=== PATIENT | female | born 1940 | race African-American/Black ===

== ENCOUNTER 2017-04-08 19:19 | Inpatient (IN) | payer BC ==
[~2017-04-08] VITALS: Ht 172.7 cm; Wt 81.4 kg
[~2017-04-08 19:19] MED LIST: ACET325T21 PO; ACET650S19 PO; BISA10SU2 RC; CALC-98 PO; CYAN10005 PO; ENOX40DI SQ; GABA-585 PO; GLUC-126 PO; HYDR-2758 PO; HYDR500C16 PO; MAGN2400 PO; MAGN400C PO; NA P133E2 RC; OMEG-33 PO; PANT40TA3 PO; POTASSIUM PO; WARF10TA45 PO; WARF2TAB PO; WARF7.5T48 PO; WARF7.5T6 PO; [UNRECOGNIZED DRUG - OTHER] PO; [UNRECOGNIZED DRUG - REMARK] PO
[2017-04-08 19:35] LABS: BILIRUBIN,URINE NEGATIVE (NEG); GLUCOSE,URINE NEGATIVE (NEG); NITRITE,URINE NEGATIVE (NEG); PH,URINE 5.5; PROTEIN,URINE 100 mg/dL (NEG-TRACE); UROBILINOGEN,URINE 0.2 mg/dL (0.2 mg/dL)
[2017-04-08 19:43] LABS: BACTERIA,URINE FEW /HPF (0-FEW); RBC,URINE 0 /HPF (0-2); SQUAMOUS EPITHELIAL CELL,UR MOD /LPF
[2017-04-08] MEDS ORDERED: ONDANSETRON PF 4 MG/2 ML VIAL. IV ONE (19:45)
[2017-04-08] MEDS ORDERED: LIDO:MAALOX:DONNATAL 1:1:1 15 ML SINGLE DOSE SWSW ONE (20:15)
[2017-04-08] MEDS ORDERED: NITROGLYCERIN SUBLINGUAL 0.4 MG BOTTLE OF 25. SL PRN (20:15)
[2017-04-08 20:24] LABS: BASO # 0.1 x10^3/uL (0.0-0.2); BASO % 1 % (0-3); EOS % 0 % (0-3); HEMATOCRIT 28.3 % (36.0-47.0); HEMOGLOBIN 9.4 g/dL (12.0-15.5); LYMPH # 0.2 x10^3/uL (1.0-4.8); LYMPH % 3 % (24-48); MEAN CORPUSCULAR HEMOGLOBIN 30 pg (25-35); MEAN CORPUSCULAR HGB CONC 33 g/dL (31-37); MEAN CORPUSCULAR VOLUME 90 fL (79-100); MONO % 4 % (0-9); NEUT % 93 % (31-73); PLATELET COUNT 594 x10^3/uL (140-400); RED BLOOD COUNT 3.14 x10^6/uL (3.50-5.40); RED CELL DISTRIBUTION WIDTH 18.4 % (11.5-14.5); WHITE BLOOD COUNT 9.4 x10^3/uL (4.0-11.0)
[2017-04-08 20:33] LABS: PROTHROMBIN TIME PATIENT 21.4 SEC (11.7-14.0)
[2017-04-08 20:36] LABS: CALCIUM 8.7 mg/dL (8.5-10.1); GFR 65.2; POTASSIUM 3.9 mmol/L (3.5-5.1)
[2017-04-08 20:44] LABS: ALBUMIN 3.7 g/dL (3.4-5.0); ALBUMIN/GLOBULIN RATIO 0.9 (1.0-1.7); TOTAL BILIRUBIN 0.4 mg/dL (0.2-1.0); TOTAL PROTEIN 7.6 g/dL (6.4-8.2)
--- NOTE | 2017-04-08 20:48 | ED.ADGEN ---
Past Medical History Past Medical History: Cancer, Diverticulitis, GERD Additional Past Medical Histor: thrombocytosis, BREAST CANCER Past Surgical History: Hysterectomy, Other Additional Past Surgical Histo: colon resection, THYROIDECTOMY, L MASTECTOMY, LAMINECTOMY Alcohol Use: None Drug Use: None Adult General Chief Complaint Chief Complaint: GI PROBLEM HPI HPI Patient is a 77 year old woman, history of chronic anemia, GERD, chronic abdominal pain, diverticulitis, presents the emergency department with a complaint of chest pressure, so seated with nausea, vomiting, and sweating that began this afternoon. Patient states that she also is experiencing abdominal pain at this time, and thinks that this may be "like my GERD", states that the pain is in a did not respond her typical GERD treatment. She denies any focal weakness, numbness or tingling, any syncope, any palpitations, any recent travel or surgery, any history of leg swelling or rashes. She does of a history of "blood clots", for which she takes Coumadin, states her last INR check was last week and it was within normal limits. Patient describes the chest pressure located in the middle of her chest, is a heaviness, and "not a pain", denies any radiation, denies any history of cardiac evaluation with either a stress test or catheterization. Her primary care provider is Dr. Jimenes. Review of Systems Review of Systems Constitutional: Denies fever or chills. [] Eyes: Denies change in visual acuity. [] HENT: Denies nasal congestion or sore throat. [] Respiratory: Denies cough or shortness of breath. [] Cardiovascular: Chest pressure, no edema. GI: Cramping in the upper abdomen, associated with nausea, vomiting 3 episodes , food and fluid, no diarrhea. : Denies dysuria. [] Musculoskeletal: Denies back pain or joint pain. [] Integument: Denies rash. [] Neurologic: Denies headache, focal weakness or sensory changes. [] Endocrine: Denies polyuria or polydipsia. [] Lymphatic: Denies swollen glands. [] Psychiatric: Denies depression or anxiety. [] Current Medications Current Medications Current Medications Medications (Trade) Dose Ordered Sig/Abbie Start Time Stop Time Status Last Admin Dose Admin Acetaminophen (Tylenol) 650 mg PRN Q4HRS PRN 04/08/17 22:45 04/09/17 22:44 UNV Fentanyl Citrate (Fentanyl 2ml Vial) 75 mcg PRN Q15MIN PRN 04/08/17 23:00 04/09/17 22:59 UNV Info (Do NOT chart on this entry -- for MONITORING) 1 each PRN DAILY PRN 04/08/17 21:30 04/10/17 21:29 Iohexol (Omnipaque 350 Mg/ml) 90 ml 1X ONCE 04/08/17 21:30 04/08/17 21:31 DC 04/08/17 21:36 90 ML Multi-Ingredient Mouthwash/Gargle (Gi Cocktail Single Dose) 15 ml 1X ONCE 04/08/17 20:15 04/08/17 20:16 DC 04/08/17 20:20 15 ML Nitroglycerin (Nitrostat) 0.4 mg PRN Q5MIN PRN 04/08/17 20:15 Ondansetron HCl (Zofran) 4 mg PRN Q8HRS PRN 04/08/17 22:45 04/09/17 22:44 UNV Piperacillin Sod/ Tazobactam Sod (Zosyn Per Pharmacy) 1 each PRN DAILY PRN 04/08/17 22:30 UNV Piperacillin Sod/ Tazobactam Sod 4.5 gm/Sodium Chloride 100 ml @ 200 mls/hr 1X ONCE 04/08/17 22:45 04/08/17 23:14 04/08/17 22:52 200 MLS/HR Sodium Chloride 1,000 ml @ 125 mls/hr Q8H 04/08/17 22:39 04/09/17 22:38 UNV 04/08/17 22:56 125 MLS/HR Allergies Allergies Allergies Coded Allergies Type Severity Reaction Last Updated Verified codeine Adverse Reaction Intermediate Palpitations 02/21/16 Yes Physical Exam Physical Exam Constitutional: Well developed, well nourished, no acute distress, non-toxic appearance. [] HENT: Normocephalic, atraumatic, bilateral external ears normal, oropharynx moist, no oral exudates, nose normal. [] Eyes: PERRLA, EOMI, conjunctiva normal, no discharge. [] Neck: Normal range of motion, no tenderness, supple, no stridor. [] Cardiovascular:Heart rate regular rhythm, no murmur, S1, S2, no rubs or gallops. [] Lungs & Thorax: Denies breath sounds at bases bilaterally, no wheezing, rhonchi , rales. No chest wall crepitus or tenderness. [] Abdomen: Bowel sounds normal, soft, mild tenderness palpation in the epigastric region and mid abdominal region, no rebound, rigidity, or guarding, no masses, no pulsatile masses. [] Skin: Warm, dry, no erythema, no rash. [] Back: No tenderness, no CVA tenderness. [] Extremities: No tenderness, no cyanosis, no clubbing, ROM intact, no edema. Negative Homans sign. [] Neurologic: Alert and oriented X 3, normal motor function, normal sensory function, no focal deficits noted. [] Psychologic: Affect normal, judgement normal, mood normal. [] Current Patient Data Vital Signs Vital Signs Date Time Temp Pulse Resp B/P (MAP) Pulse Ox O2 Delivery O2 Flow Rate FiO2 04/08/17 22:50 22 100 Room Air 04/08/17 19:25 99.2 82 156/70 (98) 99.2 Lab Values Laboratory Tests Test 04/08/17 19:25 04/08/17 20:12 Urine Collection Type Unknown Urine Color Yellow Urine Clarity Clear Urine pH 5.5 Urine Specific Delano >=1.030 Urine Protein 100 mg/dL (NEG-TRACE) Urine Glucose (UA) Negative mg/dL (NEG) Urine Ketones (Stick) Negative mg/dL (NEG) Urine Blood Negative (NEG) Urine Nitrite Negative (NEG) Urine Bilirubin Negative (NEG) Urine Urobilinogen Dipstick 0.2 mg/dL (0.2 mg/dL) Urine Leukocyte Esterase Negative (NEG) Urine RBC 0 /HPF (0-2) Urine WBC 1-4 /HPF (0-4) Urine Squamous Epithelial Cells Mod /LPF Urine Bacteria Few /HPF (0-FEW) Urine Hyaline Casts Few /HPF Urine Mucus Marked /LPF White Blood Count 9.4 x10^3/uL (4.0-11.0) Red Blood Count 3.14 x10^6/uL (3.50-5.40) L Hemoglobin 9.4 g/dL (12.0-15.5) L Hematocrit 28.3 % (36.0-47.0) L Mean Corpuscular Volume 90 fL (79-100) Mean Corpuscular Hemoglobin 30 pg (25-35) Mean Corpuscular Hemoglobin Concent 33 g/dL (31-37) Red Cell Distribution Width 18.4 % (11.5-14.5) H Platelet Count 594 x10^3/uL (140-400) H Neutrophils (%) (Auto) 93 % (31-73) H Lymphocytes (%) (Auto) 3 % (24-48) L Monocytes (%) (Auto) 4 % (0-9) Eosinophils (%) (Auto) 0 % (0-3) Basophils (%) (Auto) 1 % (0-3) Neutrophils # (Auto) 8.8 x10^3uL (1.8-7.7) H Lymphocytes # (Auto) 0.2 x10^3/uL (1.0-4.8) L Monocytes # (Auto) 0.3 x10^3/uL (0.0-1.1) Eosinophils # (Auto) 0.0 x10^3/uL (0.0-0.7) Basophils # (Auto) 0.1 x10^3/uL (0.0-0.2) Segmented Neutrophils % 89 % (35-66) H Band Neutrophils % 4 % (0-9) Lymphocytes % 3 % (24-48) L Atypical Lymphocytes % (Manual) 4 % (0-0) H Platelet Estimate Increased (ADEQUATE) Giant Platelets Mod Polychromasia Slight Anisocytosis Slight Microcytosis Slight Tear Drop Cells Occ Prothrombin Time 21.4 SEC (11.7-14.0) H Prothrombin Time INR 2.0 (0.8-1.1) H PTT 33 SEC (24-38) Sodium Level 138 mmol/L (136-145) Potassium Level 3.9 mmol/L (3.5-5.1) Chloride Level 100 mmol/L (98-107) Carbon Dioxide Level 26 mmol/L (21-32) Anion Gap 12 (6-14) Blood Urea Nitrogen 19 mg/dL (7-20) Creatinine 1.0 mg/dL (0.6-1.0) Estimated GFR (Cockcroft-Gault) 65.2 BUN/Creatinine Ratio 19 (6-20) Glucose Level 186 mg/dL (70-99) H Lactic Acid Level 4.2 mmol/L (0.4-2.0) *H Calcium Level 8.7 mg/dL (8.5-10.1) Total Bilirubin 0.4 mg/dL (0.2-1.0) Aspartate Amino Transferase (AST) 14 U/L (15-37) L Alanine Aminotransferase (ALT) 21 U/L (14-59) Alkaline Phosphatase 56 U/L (46-116) Troponin I Quantitative < 0.017 ng/mL (0.000-0.055) Total Protein 7.6 g/dL (6.4-8.2) Albumin 3.7 g/dL (3.4-5.0) Albumin/Globulin Ratio 0.9 (1.0-1.7) L Lipase 53 U/L (73-393) L Laboratory Tests 04/08/17 20:12 Laboratory Tests 04/08/17 20:12 EKG EKG EC: Sinus rhythm, heart rate 81 bpm, upright axis, QTC of 516, prolonged , QRS of 92, WI 162, with moderate baseline artifact noted. Patient with T-wave inversions noted in V4, with changes in contour noted in the anterior lateral leads when compared to ECG from 02/27/2016. As interpreted by me. No ST elevations , no depressions. Abnormal ECG, does not meet STEMI criteria. EC: Sinus rhythm, heart rate 85 bpm, improved at baseline, patient noted to have T-wave inversions in V3 through V5, no ST elevations or depressions, QTC of 483, WI 170, QRS of 90, abnormal ECG, does not meet STEMI criteria. As interpreted by me. Radiology/Procedures Radiology/Procedures Acute abdominal series: 3 view: Patient with enlarged cardiac silhouette, no infiltrates or effusions, no free air noted, no bony or soft tissue abnormality identified. Patient with dilated loops of bowel noted, with stool and bowel gas throughout, no obvious obstruction noted. Abnormal abdominal series, as interpreted by me. [] Impressions: [facility] [address] [place] [address] IMAGING REPORT Signed PATIENT: ELSA JONES ACCOUNT: [id number] : 1940 LOCATION: ER AGE: 77 SEX: F EXAM STATUS: REG ER ORD. PHYSICIAN: BRYAN ARANGO DO REASON: abd pain, hx DVT, elevated lactic r/o mesenteric ischemia PROCEDURE: CT ANGIOGRAPHY ABD AND PELVIS CT angiogram abdomen and pelvis with contrast: Reason for examination: Rule out mesenteric ischemia. Helical images were obtained through the abdomen and pelvis with intravenous administration of 90 cc Omnipaque 350 using angiographic protocol. 3-D MIPS reconstruction was performed in sagittal and coronal planes and volume rendered images were obtained. Exposure: One or more of the following individualized dose reduction techniques were utilized for this examination: 1. Automated exposure control 2. Adjustment of the mA and/or kV according to patient size 3. Use of iterative reconstruction technique. The lung bases are clear. The heart size is normal with no pericardial effusion evident. No abnormality seen at the liver, spleen, gallbladder adrenal glands or pancreas. The kidneys show no renal calculi or hydronephrosis. There is a large right renal cyst at the midpole laterally measuring approximately 5.8 x 5 cm in greatest dimensions. There is a large amount of air and some fecal material within the colon with no abnormal wall thickening or apparent obstruction. There is no diverticulosis or diverticulitis evident. No abnormality seen at the stomach. The small intestinal tract does not appear distended and wall thickening is not evident but there are some air-filled loops of small bowel seen in the pelvis. The abdominal aorta shows some arteriosclerotic vascular calcification but no aneurysmal dilatation. There is some calcification at the origin of the celiac axis but no significant occlusion. The superior mesenteric artery appears to show good vascular flow to its branches without occlusion. The inferior mesenteric artery also appears to show good vascular flow. No abnormality seen at the bladder or vaginal cuff. No adnexal masses are seen. There are some degenerative changes in the spine but no acute bony abnormalities are seen. IMPRESSION: Gaseous distention of the colon without apparent obstruction or abnormal wall thickening. Some air-filled loops of small intestine in the pelvis without abnormal dilatation or wall thickening. 5.8 mm cystic lesion laterally at the midpole the right kidney. Electronically signed by: Shabana Min MD (04/08/2017 10:16 PM) [facility] DICTATED and SIGNED BY: SHABANA MIN MD DATE: 04/08/17 [id number] CC: BRYAN ARANGO DO; JENNIFER JIMENES MD ~ Course & Med Decision Making Course & Med Decision Making Pertinent Labs and Imaging studies reviewed. (See chart for details) Patient complaining of chest pressure, also abdominal pain. No back pain, ECG reveals changes with T-wave inversions noted in the anterior lateral leads, does not meet STEMI criteria. Patient with mild hypertension, otherwise vital signs within normal limits. Patient is agreeable with receiving laboratory studies, pain medication, and imaging. Acute abdominal series reveals dilated loops of bowel, without obvious evidence of obstruction, no free air. Laboratory studies reveal a lactic acidosis at 4.2, initial troponin within normal limits, with an abnormal ECG as stated. INR 2.0. No leukocytosis, patient with a left shift however, and 4% bands, creatinine and electrolytes within normal limits. Patient initiated on IV fluid bolus, CT angiogram of abdomen and pelvis ordered to further evaluate the minute I did not patient for possible ischemic abdominal process. Patient received several doses of pain medication, states she is feeling slightly better but is still having some pain. Agreeable to receiving CT of the abdomen and pelvis, which was obtained without issue, revealed evidence of bowel bladder with gaseous distention, but no other concerning findings. I did discuss findings as above with the patient and family at bedside, she is agreeable for Chloride or the hospital, receive initial dose of Zosyn in the ED, due to bandemia, although this may be an acute phase reaction versus an infectious process, with continued IV hydration, repeat laboratory studies. I spoke with Dr. Jimenes, the patient's primary care provider, patient was accepted to her service as a full admission to the medical telemetry floor, with consultation placed for cardiology for evaluation of abnormal ECG which changes from prior, to continue symptomatic management, IV hydration, and repeat laboratory studies as stated. Bridge orders entered per discussion. Dragon Disclaimer Dragon Disclaimer This electronic medical record was generated, in whole or in part, using a voice recognition dictation system. Departure Impression: Primary Impression: Abdominal pain Additional Impression: Lactic acidosis Disposition: 09 ADMITTED INPATIENT Admitting Physician: Jennifer Jimenes Condition: IMPROVED Problem Qualifiers BRYAN ARANGO DO Apr 08, 2017 20:48
[2017-04-08] MEDS: fentaNYL PF VIAL 100 MCG/2 ML VIAL IV PRN ×6 (20:53→23:37)
[2017-04-08] MEDS ORDERED: IV NORMAL SALINE 1000ML BAG 1,000 ML IV ONE (21:00)
[2017-04-08 21:06] LABS: PLT ESTIMATE INCREASED (ADEQUATE)
[2017-04-08 21:07] LABS: ANISOCYTOSIS SLIGHT; MICROCYTOSIS SLIGHT; POLYCHROMASIA SLIGHT; TEAR DROP CELLS OCC
[2017-04-08] MEDS ORDERED: IOHEXOL 350 MG/ML 100 ML VIAL. IV ONE (21:30)
[2017-04-08] MEDS ORDERED: CONTRAST GIVEN MC PRN (21:30)
--- NOTE | 2017-04-08 22:20 | RAD ---
CT angiogram abdomen and pelvis with contrast: Reason for examination: Rule out mesenteric ischemia. Helical images were obtained through the abdomen and pelvis with intravenous administration of 90 cc Omnipaque 350 using angiographic protocol. 3-D MIPS reconstruction was performed in sagittal and coronal planes and volume rendered images were obtained. Exposure: One or more of the following individualized dose reduction techniques were utilized for this examination: 1. Automated exposure control 2. Adjustment of the mA and/or kV according to patient size 3. Use of iterative reconstruction technique. The lung bases are clear. The heart size is normal with no pericardial effusion evident. No abnormality seen at the liver, spleen, gallbladder adrenal glands or pancreas. The kidneys show no renal calculi or hydronephrosis. There is a large right renal cyst at the midpole laterally measuring approximately 5.8 x 5 cm in greatest dimensions. There is a large amount of air and some fecal material within the colon with no abnormal wall thickening or apparent obstruction. There is no diverticulosis or diverticulitis evident. No abnormality seen at the stomach. The small intestinal tract does not appear distended and wall thickening is not evident but there are some air-filled loops of small bowel seen in the pelvis. The abdominal aorta shows some arteriosclerotic vascular calcification but no aneurysmal dilatation. There is some calcification at the origin of the celiac axis but no significant occlusion. The superior mesenteric artery appears to show good vascular flow to its branches without occlusion. The inferior mesenteric artery also appears to show good vascular flow. No abnormality seen at the bladder or vaginal cuff. No adnexal masses are seen. There are some degenerative changes in the spine but no acute bony abnormalities are seen. IMPRESSION: Gaseous distention of the colon without apparent obstruction or abnormal wall thickening. Some air-filled loops of small intestine in the pelvis without abnormal dilatation or wall thickening. 5.8 mm cystic lesion laterally at the midpole the right kidney. Electronically signed by: Shabana Canchola MD (04/08/2017 10:16 PM) [employer]
[2017-04-08] MEDS ORDERED: PIP/TAZO PER PHARMACY MC PRN (22:30)
[2017-04-08] MEDS ORDERED: PIPERACILLIN/TAZOBACTAM 4.5 GM in IV NORMAL SALINE 100ML 100 ML IV ONE (22:45)
[2017-04-08] MEDS ORDERED: ACETAMINOPHEN 325 MG TABLET. PO PRN (22:45)
[2017-04-08] MEDS: IV NORMAL SALINE 1000ML BAG 1,000 ML IV SCH (22:56)
[2017-04-08] MEDS ORDERED: fentaNYL PF VIAL 100 MCG/2 ML VIAL IV PRN (23:00)
[2017-04-08] MEDS ORDERED: DOCUSATE SODIUM 100 MG CAPSULE. PO PRN (23:00)
[2017-04-09] VITALS (7 sets, daily range): BP systolic 132–155; BP diastolic 58–76
[2017-04-09] MEDS ORDERED: HYDR-2758 PO (00:20)
[2017-04-09] MEDS: ONDANSETRON PF 4 MG/2 ML VIAL. IV PRN ×2 (00:36→15:11)
[2017-04-09] MEDS: fentaNYL PF VIAL 100 MCG/2 ML VIAL IV PRN ×6 (00:37→18:25)
--- NOTE | 2017-04-09 01:40 | ACF ---
Admission Forms Criteria ABDOMINAL PAIN Clinical Indications for Admission to Inpatient Care ( chipewwa/check or initial the applicable condition/criteria): Admission is indicated for ANY ONE of the following (1)(2)(3)(4)(5)(6): [ ]I. Surgery needed that cannot be performed on ambulatory basis [ ]II. Peritoneal signs present (eg, rebound tenderness, rigidity) [ ]III. Evaluation requires patient to not eat or drink for extended period ( eg, more than 24 hours). [ X]IV. Inpatient admission required[B] rather than observation care (see Abdominal Pain: Observation Care guideline as appropriate) because of ANY ONE of the following(7)(8)(9): [ ] a) Hemodynamic instability [X ]b) Severe pain requiring acute inpatient management [ ]c) Identification of etiology or finding that requires inpatient care (eg, aortic dissection, free air,bowel ischemia)(10) [ ]d) Absent bowel sounds with complete ileus (11) [ ]e) Signs of intestinal obstruction[C] [ ]f) Suspected toxic megacolon [ ]g) Severe electrolyte abnormalities requiring inpatient care [ ]h) High fever or infection requiring inpatient admission as indicated by ANY ONE of the following (12)(13): [ ]i) Appropriate outpatient or observation care antimicrobial treatment unavailable, not effective, or not feasible [ ]ii) Documented bacteremia [ ]iii) Temperature greater than 104.9 degrees F (40.5 degrees C) (oral) [ ]iv) Temperature greater than 103.1 degrees F (39.5 degrees C) ( oral) or less than 96.8 degrees F (36 degrees C) (rectal) that does not respond to all emergency treatment measures [ ]i) IV fluid required rather than oral rehydration to replace significant ongoing (eg, for greater than 24 hours) losses (greater than 3 L/m2 per day)(14)(15) [ ]j) Percutaneous or open drainage (eg, abscess, biliary tract) procedures [ ]k) Parenteral nutrition regimen that must be implemented on inpatient basis [ ]l) Other condition, treatment, or monitoring requiring inpatient admission Extended stay beyond goal length of stay may be needed for (1)(3)(4)(10)(16): [ ]a) Surgery (e.g., colectomy, revascularization procedure) [ ]b) Persistent abdominal pain with suspected intra-abdominal process [ ]c) Diagnosed condition requiring continued stay (e.g., pancreatitis, complicated diverticulitis) The original [facility] content created by [facility] has been revised. The portions of the content which have been revised are identified through the use of italic text, and [facility] has neither reviewed nor approved the modified material.All other unmodified content is copyright [facility]. Please see references footnoted in the original [facility] edition 2015 Admission Criteria Met?: Yes DOM SANTANA Apr 09, 2017 01:40
[2017-04-09] MEDS: PIPERACILLIN/TAZOBACTAM 3.375 GM in IV NORMAL SALINE 50ML 50 ML IV SCH ×3 (05:25→18:23)
--- NOTE | 2017-04-09 06:30 | EKG ---
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
--- NOTE | 2017-04-09 06:30 | EKG ---
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
[2017-04-09 07:02] LABS: CALCIUM 8.3 mg/dL (8.5-10.1); CREATININE 0.9 mg/dL (0.6-1.0); GFR 73.7; POTASSIUM 3.6 mmol/L (3.5-5.1)
[2017-04-09 07:07] LABS: BASO % 0 % (0-3); EOS % 0 % (0-3); HEMATOCRIT 29.1 % (36.0-47.0); HEMOGLOBIN 9.5 g/dL (12.0-15.5); LYMPH # 0.3 x10^3/uL (1.0-4.8); LYMPH % 4 % (24-48); MEAN CORPUSCULAR HEMOGLOBIN 30 pg (25-35); MEAN CORPUSCULAR HGB CONC 33 g/dL (31-37); MEAN CORPUSCULAR VOLUME 92 fL (79-100); MONO % 5 % (0-9); NEUT % 91 % (31-73); PLATELET COUNT 468 x10^3/uL (140-400); RED BLOOD COUNT 3.15 x10^6/uL (3.50-5.40); RED CELL DISTRIBUTION WIDTH 18.9 % (11.5-14.5); WHITE BLOOD COUNT 8.5 x10^3/uL (4.0-11.0)
--- NOTE | 2017-04-09 08:20 | RAD ---
Acute abdomen series with chest, 04/08/2017: History: Chest and abdominal pain There is a moderate amount of gas in the colon extending down into the rectosigmoid. There is a moderate amount stool in the ascending colon. No free air is evident in the abdomen. There is no evidence of organomegaly. Moderate scattered degenerative changes are present in the spine. The heart appears to be within normal limits in size. There is mild chronic elevation of the right hemidiaphragm. No pulmonary consolidation is seen. There is no evidence of pleural fluid. IMPRESSION: Mildly increased gas and stool in the colon suggesting atonic colon or ileus.
[2017-04-09] MEDS ORDERED: ACETAMINOPHEN 325 MG TABLET. PO PRN (08:45)
--- NOTE | 2017-04-09 08:57 | PDOC ---
Provider Note Provider Note [id number] BRANDY JONES MD Apr 09, 2017 08:56
[2017-04-09] MEDS: IV NORMAL SALINE 1000ML BAG 1,000 ML IV SCH ×2 (09:07→20:35)
--- NOTE | 2017-04-09 09:57 | HP ---
ADMIT DATE: 04/08/2017 CHIEF COMPLAINT: Right upper quadrant pain. HISTORY OF PRESENT ILLNESS: A 77-year-old black female patient of Dr. Leger started having some upper chest pain and nausea and some sweating while in confucianism. This progressed to where she is really having more persistent right upper quadrant and epigastric area pain. She was seen in the ER. CT scan of the abdomen and pelvis was unremarkable as were labwork studies and she was started on Zosyn for some reason and admitted. CT scan of the chest was unremarkable, but there are some nonspecific EKG changes that are not available for me to review at this time. She has no previous cardiac history. PAST MEDICAL HISTORY: "High platelets and low hemoglobin" per Dr. Truong and she takes hydroxyurea for this. She is on acid reflux meds, but has been off that for 2 weeks. No history of diabetes, cardiac disease or other serious medical problems that she is aware of. ALLERGIES: CODEINE. PAST SURGICAL HISTORY: Surgically, she has had some kind of colon resection for benign disease. SOCIAL HISTORY: Nonsmoker, , nondrinker, physically active for her age. FAMILY HISTORY: Unremarkable. REVIEW OF SYSTEMS: No other specific complaints. She is unaware of when her last colonoscopy was. PHYSICAL EXAMINATION: ENT: All within normal limits. No jaundice is noted. NECK: No masses, nodes or bruits. LUNGS: Clear. CARDIOVASCULAR: Regular rate. No irregular beat or murmur or irregular heartbeat. ABDOMEN: Tender in the right upper quadrant. No guarding or masses. Bowel sounds diminished. EXTREMITIES: Excellent pedal and radial pulses. No edema. No joint or skin findings. NEUROLOGIC: Physiologic. ASSESSMENT: Chest pain that evolved more to right upper quadrant pain with some degree of mild lactic acidosis. Certainly, gallbladder disease is suspicious and perhaps peptic ulcer disease as she has been off of her omeprazole for 2 weeks. Apparently, there were some EKG changes raising the possibility of coronary artery disease, though atypical at this time. Chronic anemia and high platelets are stable at this time. PLAN: Gallbladder sonogram, cardiac evaluation and will make sure she resumes her pantoprazole as well. BRANDY JONES MD DR: CASSIE/alex JOB#: [id number] / [id number]
[2017-04-09] MEDS: PANTOPRAZOLE 40 MG TABLET.DR. PO SCH (10:12)
[2017-04-09] MEDS: GABAPENTIN 100 MG CAPSULE. PO SCH ×3 (10:12→20:34)
[2017-04-09] MEDS: HYDROXYUREA 500 MG CAPSULE PO SCH (10:16)
--- NOTE | 2017-04-09 10:59 | PDOC2 ---
ARIEL RODRIGUEZ 3RD PRESSMAN 04/09/17 1059: CARDIAC CONSULT DATE OF CONSULT Date of Consult DATE: 04/09/17 TIME: 10:48 REASON FOR CONSULT Reason for Consult: Abnormal EKG, CP REFERRING PHYSICIAN Referring Physician: Ned SOURCE Source: Chart review, Patient HISTORY OF PRESENT ILLNESS HISTORY OF PRESENT ILLNESS This is a pleasant 77 yo female admitted for complains of chest pain. Reports that starting yesterday she started having mid chest pressure which then later on started having abdominal discomfort. Positive for nausea and vomiting, diaphoresis. No significant SOA but she has been feeling weak in the last week. She was thinking that this could be her GERD which she ran out of her reflux medications about 203 weeks ago and also her anemia. Denies any palpitations or dizziness. Denies ant HTN, HLP, or DM. No notable cardiac testing including stress test in the past. She does have hx of TIA and PE in the past hence chronic coumadin use. Presently still is having some pressure in her epigastric region but very tolerable and actually had a BM this AM. Denies any valvular issues and arrhythmias in the past. PAST MEDICAL HISTORY Cardiovascular: No pertinent hx Pulmonary: Asthma, Pulmonary embolus CENTRAL NERVOUS SYSTEM: TIA GI: Diverticulosis Heme/Onc: Anemia NOS, B12 deficiency, Cancer (breast), Other (thormbocytosis, chronic anticoagulation) Psych: No pertinent hx Musculoskeletal: Osteoarthritis Infectious disease: No pertinent hx ENT: No pertinent hx Renal/: No pertinent hx Endocrine: Other (goiter) Dermatology: No pertinent hx PAST SURGICAL HISTORY Past Surgical History: Mastectomy (left), Hysterectomy, Colon Resection ( partial), Other (lumbar laminectomy; thyroidectomy) FAMILY HISTORY Family History: Heart Disease (sisters x2) SOCIAL HISTORY Smoke: No ALCOHOL: none Drugs: None Lives: Alone CURRENT MEDICATIONS CURRENT MEDICATIONS Current Medications Medications (Trade) Dose Ordered Sig/Abbie Route PRN Reason Start Time Stop Time Status Last Admin Dose Admin Fentanyl Citrate (Fentanyl 2ml Vial) 25 mcg PRN Q15MIN PRN IV PAIN GREATER THAN 3/10 04/08/17 19:30 04/08/17 23:00 DC 04/08/17 22:13 Ondansetron HCl (Zofran) 4 mg 1X ONCE IV 04/08/17 19:45 04/08/17 19:46 DC 04/08/17 20:19 Multi-Ingredient Mouthwash/Gargle (Gi Cocktail Single Dose) 15 ml 1X ONCE SWSW 04/08/17 20:15 04/08/17 20:16 DC 04/08/17 20:20 Sodium Chloride 1,000 ml @ 1,000 mls/hr 1X ONCE IV 04/08/17 21:00 04/08/17 21:59 DC 04/08/17 21:17 Iohexol (Omnipaque 350 Mg/ml) 90 ml 1X ONCE IV 04/08/17 21:30 04/08/17 21:31 DC 04/08/17 21:36 Piperacillin Sod/ Tazobactam Sod 4.5 gm/Sodium Chloride 100 ml @ 200 mls/hr 1X ONCE IV 04/08/17 22:45 04/08/17 23:14 DC 04/08/17 22:52 Ondansetron HCl (Zofran) 4 mg PRN Q8HRS PRN IV NAUSEA/VOMITING 04/08/17 22:45 04/09/17 22:44 04/09/17 00:36 Fentanyl Citrate (Fentanyl 2ml Vial) 50 mcg PRN Q2HR PRN IV PAIN 04/08/17 22:45 04/09/17 08:54 DC 04/09/17 05:25 Sodium Chloride 1,000 ml @ 125 mls/hr Q8H IV 04/08/17 22:39 04/09/17 22:38 04/09/17 09:07 Fentanyl Citrate (Fentanyl 2ml Vial) 75 mcg PRN Q15MIN PRN IV PAIN GREATER THAN 3/10 04/08/17 23:00 04/09/17 22:59 04/09/17 09:00 Piperacillin Sod/ Tazobactam Sod 3.375 gm/Sodium Chloride 50 ml @ 100 mls/hr Q6HRS IV 04/09/17 06:00 04/09/17 05:25 Gabapentin (Neurontin) 200 mg TID PO 04/09/17 09:00 04/09/17 10:12 Hydroxyurea (Hydrea) 500 mg DAILY10 PO 04/09/17 10:00 04/09/17 10:16 Pantoprazole Sodium (Protonix) 40 mg DAILYAC PO 04/09/17 09:00 04/09/17 10:12 ALLERGIES ALLERGIES: Coded Allergies: codeine (Verified Adverse Reaction, Intermediate, Palpitations, 02/21/16) ROS Review of System 14 point ROS evaluated with pertinent positives noted per HPI PHYSICAL EXAM General: Alert, Oriented X3, Cooperative, No acute distress HEENT: Atraumatic, Mucous membr. moist/pink Lungs: Other (faint basilar crackles) Heart: Regular rate (SR), Normal S1, Normal S2, Other (3/6 systolic murmur to apex) Abdomen: Soft, Other (epigastric tenderness) Extremities: No cyanosis, No edema Skin: No breakdown, No significant lesion Neuro: Normal speech, Sensation intact Psych/Mental Status: Mental status NL, Mood NL MUSCULOSKELETAL: Osteoarthritic changes both hands VITALS VITALS Vital Signs Date Time Temp Pulse Resp B/P (MAP) Pulse Ox O2 Delivery O2 Flow Rate FiO2 04/09/17 09:00 20 93 Room Air 04/09/17 07:00 98.4 84 145/76 (99) 98.4 LABS Lab: Laboratory Tests Test 04/08/17 19:25 04/08/17 20:12 04/09/17 00:30 04/09/17 01:45 Urine Collection Type Unknown Urine Color Yellow Urine Clarity Clear Urine pH 5.5 Urine Specific Deal >=1.030 Urine Protein 100 mg/dL (NEG-TRACE) Urine Glucose (UA) Negative mg/dL (NEG) Urine Ketones (Stick) Negative mg/dL (NEG) Urine Blood Negative (NEG) Urine Nitrite Negative (NEG) Urine Bilirubin Negative (NEG) Urine Urobilinogen Dipstick 0.2 mg/dL (0.2 mg/dL) Urine Leukocyte Esterase Negative (NEG) Urine RBC 0 /HPF (0-2) Urine WBC 1-4 /HPF (0-4) Urine Squamous Epithelial Cells Mod /LPF Urine Bacteria Few /HPF (0-FEW) Urine Hyaline Casts Few /HPF Urine Mucus Marked /LPF White Blood Count 9.4 x10^3/uL (4.0-11.0) Red Blood Count 3.14 x10^6/uL (3.50-5.40) Hemoglobin 9.4 g/dL (12.0-15.5) Hematocrit 28.3 % (36.0-47.0) Mean Corpuscular Volume 90 fL (79-100) Mean Corpuscular Hemoglobin 30 pg (25-35) Mean Corpuscular Hemoglobin Concent 33 g/dL (31-37) Red Cell Distribution Width 18.4 % (11.5-14.5) Platelet Count 594 x10^3/uL (140-400) Neutrophils (%) (Auto) 93 % (31-73) Lymphocytes (%) (Auto) 3 % (24-48) Monocytes (%) (Auto) 4 % (0-9) Eosinophils (%) (Auto) 0 % (0-3) Basophils (%) (Auto) 1 % (0-3) Neutrophils # (Auto) 8.8 x10^3uL (1.8-7.7) Lymphocytes # (Auto) 0.2 x10^3/uL (1.0-4.8) Monocytes # (Auto) 0.3 x10^3/uL (0.0-1.1) Eosinophils # (Auto) 0.0 x10^3/uL (0.0-0.7) Basophils # (Auto) 0.1 x10^3/uL (0.0-0.2) Segmented Neutrophils % 89 % (35-66) Band Neutrophils % 4 % (0-9) Lymphocytes % 3 % (24-48) Atypical Lymphocytes % (Manual) 4 % (0-0) Platelet Estimate Increased (ADEQUATE) Giant Platelets Mod Polychromasia Slight Anisocytosis Slight Microcytosis Slight Tear Drop Cells Occ Prothrombin Time 21.4 SEC (11.7-14.0) Prothromb Time International Ratio 2.0 (0.8-1.1) Activated Partial Thromboplast Time 33 SEC (24-38) Sodium Level 138 mmol/L (136-145) Potassium Level 3.9 mmol/L (3.5-5.1) Chloride Level 100 mmol/L (98-107) Carbon Dioxide Level 26 mmol/L (21-32) Anion Gap 12 (6-14) Blood Urea Nitrogen 19 mg/dL (7-20) Creatinine 1.0 mg/dL (0.6-1.0) Estimated GFR (Cockcroft-Gault) 65.2 BUN/Creatinine Ratio 19 (6-20) Glucose Level 186 mg/dL (70-99) Lactic Acid Level 4.2 mmol/L (0.4-2.0) 2.5 mmol/L (0.4-2.0) Calcium Level 8.7 mg/dL (8.5-10.1) Total Bilirubin 0.4 mg/dL (0.2-1.0) Aspartate Amino Transf (AST/SGOT) 14 U/L (15-37) Alanine Aminotransferase (ALT/SGPT) 21 U/L (14-59) Alkaline Phosphatase 56 U/L (46-116) Troponin I Quantitative < 0.017 ng/mL (0.000-0.055) < 0.017 ng/mL (0.000-0.055) Total Protein 7.6 g/dL (6.4-8.2) Albumin 3.7 g/dL (3.4-5.0) Albumin/Globulin Ratio 0.9 (1.0-1.7) Lipase 53 U/L (73-393) Test 04/09/17 06:00 04/09/17 06:01 Lactic Acid Level 1.7 mmol/L (0.4-2.0) White Blood Count 8.5 x10^3/uL (4.0-11.0) Red Blood Count 3.15 x10^6/uL (3.50-5.40) Hemoglobin 9.5 g/dL (12.0-15.5) Hematocrit 29.1 % (36.0-47.0) Mean Corpuscular Volume 92 fL (79-100) Mean Corpuscular Hemoglobin 30 pg (25-35) Mean Corpuscular Hemoglobin Concent 33 g/dL (31-37) Red Cell Distribution Width 18.9 % (11.5-14.5) Platelet Count 468 x10^3/uL (140-400) Neutrophils (%) (Auto) 91 % (31-73) Lymphocytes (%) (Auto) 4 % (24-48) Monocytes (%) (Auto) 5 % (0-9) Eosinophils (%) (Auto) 0 % (0-3) Basophils (%) (Auto) 0 % (0-3) Neutrophils # (Auto) 7.7 x10^3uL (1.8-7.7) Lymphocytes # (Auto) 0.3 x10^3/uL (1.0-4.8) Monocytes # (Auto) 0.5 x10^3/uL (0.0-1.1) Eosinophils # (Auto) 0.0 x10^3/uL (0.0-0.7) Basophils # (Auto) 0.0 x10^3/uL (0.0-0.2) Sodium Level 139 mmol/L (136-145) Potassium Level 3.6 mmol/L (3.5-5.1) Chloride Level 103 mmol/L (98-107) Carbon Dioxide Level 27 mmol/L (21-32) Anion Gap 9 (6-14) Blood Urea Nitrogen 16 mg/dL (7-20) Creatinine 0.9 mg/dL (0.6-1.0) Estimated GFR (Cockcroft-Gault) 73.7 Glucose Level 135 mg/dL (70-99) Calcium Level 8.3 mg/dL (8.5-10.1) Troponin I Quantitative 0.024 ng/mL (0.000-0.055) ASSESSMENT/PLAN ASSESSMENT/PLAN 1. Atypical chest pain: Mixed features. notable for atherosclerosis per CT. Likely GI but could not completely rule out ischemic component. 2. Abdominal pain: negative for cholelithiasis and no acute changes per CT abd/ pelvis and noted with large right renal cyst. Per PCP 3. Hx of PE and chronic coumadin therapy: INR 2.0 4. Hx of breast CA with radiation 5. Anemia of chronic disease with thrombocytosis 6. GERD: ran out of med 2-3 weeks ago Recommendations 1. TTE today, MPI tomorrow 2. Lipids. Resume PPI Problems: MERLE MILNER MD 04/10/17 0916: CARDIAC CONSULT ALLERGIES ALLERGIES: Coded Allergies: codeine (Verified Adverse Reaction, Intermediate, Palpitations, 02/21/16) ASSESSMENT/PLAN ASSESSMENT/PLAN Late entry for 04/09/2017. Pt. seen and examined. Agree with above EMPLOYMENT LEGAL ASSISTANT note. 77 y.o woman with very atypical pain. Plan as above. Problems: ARIEL RODRIGUEZ APRN Apr 09, 2017 10:59 MERLE MILNER MD Apr 10, 2017 09:16
[2017-04-09] MEDS: HYDROcodone/APAP 5/325MG 1 TAB TABLET PO PRN (11:10)
--- NOTE | 2017-04-09 11:44 | RAD ---
Right upper quadrant abdominal ultrasound, 04/09/2017: History: Right upper quadrant pain The gallbladder is within normal limits in size. There is no sonographic evidence of cholelithiasis. The gallbladder lisa are not thickened. No bile duct dilatation is seen. There is no evidence of a hepatic mass. The visualized portions of the pancreas are unremarkable. A 5.6 cm simple cyst is present in the right kidney. IMPRESSION: No significant gallbladder abnormality is detected.
[2017-04-09 12:51] LABS: CHOLESTEROL/HDL RATIO 1.7
--- NOTE | 2017-04-09 15:43 | CARD ---
APPROVED REPORT EXAM: Two-dimensional and M-mode echocardiogram with Doppler and color Doppler. Other Information Quality : Good Rhythm : NSR INDICATION Chest Pain 2D DIMENSIONS RVDd3.3 (2.9-3.5cm)Left Atrium(2D)3.8 (1.6-4.0cm) IVSd1.0 (0.7-1.1cm)Aortic Root(2D)2.6 (2.0-3.7cm) LVDd4.9 (3.9-5.9cm)LVOT Diameter2.2 (1.8-2.4cm) PWd0.9 (0.7-1.1cm)LVDs3.5 (2.5-4.0cm) FS (%) 29.1 %SV63.2 ml LVEF(%)55.7 (>50%) Aortic Valve AoV Peak Petar.146.2cm/sAoV VTI33.4cm AO Peak GR.8.5mmHgLVOT Peak Petar.133.7cm/s AO Mean GR.4mmHgAVA (VMAX)3.40cm2 Mitral Valve MV E Lqkzylpe708.5cm/sMV DECEL YJBE122hg MV A Vajxjlji662.2cm/sE/A Ratio1.3 MV A Oigdpjfx137ah Pulmonary Valve PV Peak Ujigkhgy844.0cm/s Tricuspid Valve TR P. Ltvxuviw194me/sTR Peak Gr.51mmHg Pulmonary Vein S1 Lsihgeto99.0cm/sD2 Ixqarzjd632.0cm/s PVa xnocvtbm12psed LEFT VENTRICLE The left ventricle is normal size. There is normal left ventricular wall thickness. The left ventricu lar systolic function is normal. The Ejection Fraction is 55-60%. There is normal LV segmental wall m otion. RIGHT VENTRICLE The right ventricle is normal size. There is normal right ventricular wall thickness. The right ventr icular systolic function is normal. ATRIA The left atrium is moderately dilated. The right atrium size is normal. The interatrial septum is int act with no evidence for an atrial septal defect or patent foramen ovale as noted on 2-D or Doppler i maging. AORTIC VALVE The aortic valve is mildly sclerotic. The aortic valve is trileaflet. Doppler and Color Flow revealed no significant aortic regurgitation. There is no significant aortic valvular stenosis. MITRAL VALVE Mitral annular calcification is mild. The mitral valve leaflets are thickened. There is no evidence o f mitral valve prolapse. There is no mitral valve stenosis. Doppler and Color Flow revealed mild to m oderate mitral regurgitation.The jet is directed posteriorly. TRICUSPID VALVE Doppler and Color Flow revealed mild tricuspid regurgitation. The pulmonary artery systolic pressure is estimated at 65 mmHg. There is severe pulmonary hypertension. PULMONIC VALVE The pulmonic valve is not well visualized but appears to open adequately. Doppler and Color Flow reve aled no pulmonic valvular regurgitation. There is no pulmonic valvular stenosis by spectral Doppler. GREAT VESSELS The aortic root is normal in size. The ascending aorta is normal in size. The pulmonary artery is nor mal. The IVC is dilated and does not collapse with inspiration. PERICARDIAL EFFUSION There is no evidence of significant pericardial effusion. Critical Notification Critical Value: No <Conclusion> The left ventricular systolic function is normal. The Ejection Fraction is 55-60%. There is normal LV segmental wall motion. Mild to moderate mitral regurgitation. Mild tricuspid regurgitation. The pulmonary artery systolic pressure is estimated at 65 mmHg. There is no evidence of significant pericardial effusion.
[2017-04-10 02:32] VITALS: BP 118/53
[2017-04-10] MEDS: fentaNYL PF VIAL 100 MCG/2 ML VIAL IV PRN ×2 (04:22→08:43)
[2017-04-10] MEDS: PIPERACILLIN/TAZOBACTAM 3.375 GM in IV NORMAL SALINE 50ML 50 ML IV SCH ×6 (05:53→23:43)
[2017-04-10 07:00] VITALS: BP 124/54
[2017-04-10] MEDS ORDERED: WARFARIN 2 MG TABLET. PO SCH (08:00)
[2017-04-10] MEDS ORDERED: REGADENOSON 0.4 MG/5 ML DISP.SYRIN. IV ONE (09:00)
--- NOTE | 2017-04-10 09:38 | PDOC ---
SUBJECTIVE Subjective JUST CAME BACK FROM CARDIAC TESTING, FEELS OK OBJECTIVE Vital Signs Vital Signs Date Time Temp Pulse Resp B/P (MAP) Pulse Ox O2 Delivery O2 Flow Rate FiO2 04/10/17 08:43 20 93 Room Air 04/10/17 07:00 99.2 85 18 124/54 (77) 96 Room Air 99.2 04/10/17 04:52 94 Room Air 04/10/17 04:22 94 Room Air 04/10/17 02:32 99.1 84 18 118/53 (74) 94 Room Air 99.1 04/09/17 22:49 98.8 84 18 132/58 (82) 94 Room Air 98.8 04/09/17 21:04 94 Room Air 04/09/17 20:34 94 Room Air 04/09/17 20:00 Room Air 04/09/17 19:06 98.6 72 18 155/70 (98) 94 Room Air 98.6 04/09/17 18:55 94 Room Air 04/09/17 18:25 20 93 Room Air 04/09/17 16:00 21 04/09/17 15:23 20 20 Room Air 04/09/17 15:16 98.6 76 18 152/68 (96) 97 Room Air 98.6 04/09/17 12:20 20 93 Room Air 04/09/17 11:10 20 93 Room Air 04/09/17 10:59 98.5 76 18 150/76 (100) 98 Room Air 98.5 I & O Intake and Output 04/10/17 07:00 Intake Total 1220 ml Balance 1220 ml Intake Oral 120 ml IV Total 1100 ml # Voids 7 PHYSICAL EXAM Physical Exam lungs clear heart tachy abd soft ext no edema ASSESSMENT/PLAN Assessment/Plan 1. Atypical chest pain: await MPI 2. Abdominal pain: better 3. Hx of PE and chronic coumadin therapy: 4. Hx of breast CA with radiation 5. Anemia of chronic disease with thrombocytosis 6. GERD Problems: JENNIFER JIMENES MD Apr 10, 2017 09:38
[2017-04-10 11:00] VITALS: BP 140/63
[2017-04-10 12:06] LABS: HEMATOCRIT 27.3 % (36.0-47.0); RED BLOOD COUNT 2.97 x10^6/uL (3.50-5.40); RED CELL DISTRIBUTION WIDTH 18.8 % (11.5-14.5); WHITE BLOOD COUNT 13.5 x10^3/uL (4.0-11.0)
[2017-04-10 12:17] LABS: INR 2.3 (0.8-1.1); PROTHROMBIN TIME PATIENT 23.6 SEC (11.7-14.0)
[2017-04-10 12:24] LABS: ALBUMIN 3.3 g/dL (3.4-5.0); ALBUMIN/GLOBULIN RATIO 0.8 (1.0-1.7); GFR 65.2; TOTAL BILIRUBIN 0.9 mg/dL (0.2-1.0); TOTAL PROTEIN 7.2 g/dL (6.4-8.2)
[2017-04-10] MEDS: PANTOPRAZOLE 40 MG TABLET.DR. PO SCH (12:43)
[2017-04-10] MEDS: GABAPENTIN 100 MG CAPSULE. PO SCH ×3 (12:43→20:42)
[2017-04-10] MEDS: HYDROXYUREA 500 MG CAPSULE PO SCH (12:51)
--- NOTE | 2017-04-10 12:53 | EKG ---
[facility] [address] [place] [address] Test Date: 2017-04-10 Test Time: 11:47:08 Pat Name: ELSA JONES Department: Room: 563 1 Gender: F [employer] Specialist: OFE : 1940 Requested By: BRYAN ARANGO Order Number: [id number] Reading MD: Bronwyn Monsalve Measurements Intervals [place] Rate: 94 P: 43 RI: 112 QRS: 19 QRSD: 86 T: 38 QT: 344 QTc: 430 Interpretive Statements SINUS RHYTHM NORMAL EKG Electronically Signed On 04-11-2017 20:36:10 CDT by Bronwyn Monsalve
[2017-04-10 15:00] VITALS: BP 143/67
--- NOTE | 2017-04-10 15:40 | RAD ---
APPROVED REPORT Test Type: Pharmacological Stress Nurse/Tech: Sara Wharton R.N. Test Indications: Chest pain Cardiac History: SEE EMR Medications: SEE EMR Medical History: SEE EMR Resting ECG: SR Resting Heart Rate: 84 bpm Resting Blood Pressure: 138/64mmHg Pretest Chest Pain: None Nurse/Tech Notes S1S2, lungs CTA but diminished throughout, denied pain or SOA. Consent: The procedure was explained to the patient in lay terms. Informed consent was witnessed. Cirilo eout was entered into [employer]. History and Stress Test performed by Sara Wharton R.N. Stress Symptoms Slightly SOA. POST EXERCISE Reason for Termination: Infusion complete Max HR: 113 bpm Max Blood Pressure: 129/56mmHg Blood Pressure response to exercise: Normal blood pressure response during stress. Heart Rate response to exercise: Normal Chest Pain: No. Arrhythmia: No. ST Change: Yes. Changes in V4,V5 INTERPRETATION Stress EKG Conclusion: No acute changes were noted. Imaging Protocol IMAGE PROTOCOL: Rest Tc-99m/stress Tc-99m 1 day Rest: Stress: Viability: Radiopharm.Tc99m PnhtonuwbAt29t Sestamibi Brlk36rWs 33.8mCi Duration 15min. 10min. Img Date 04/10/2017 04/10/2017 Inj-Img Vbnl64tzc. 60min. Rest Admin Site:IV - Right HandAdministrator:CHRIS Porras Stress Admin Site: IV - Right HandAdministrator: CHRIS Porras STRESS DATA End Diast. Vol.85.0mlAv. Heart Jrog970.0bpm End Syst. Vol.11.0mlCO Index BSA0.0L/min Myocardial Mxnm431.0gEject. Balphjwe23.0% Stress Rates Pk. Fill Rate4.32EDV/secLVtime Pk. Fill 146.29msec Pk. Empty Rate4.70ESV/secLVtime Pk. Eject90.13msec 08/29 Pk. Fill1.97EDV/sec Stress Scores Regional WT0.00Summed WT0.00 Regional WM0.00Summed WM0.00 LV Perfusion There is a small to moderate sized, severe in intensity fixed defect suggestive of prior infarct in t he distal LAD territory. No active ischemia is noted. Wall Motion No significant regional wall motion is noted on stress images. LV Perf. Quant 17 Seg. SSS6.00 17 Seg. SRS10.00 17 Seg. SDS0.00 Stress Defect Extent (% LAD)24.40Rest Defect Extent (% LAD)35.60Rev. Defect Extent (% LAD)0.00 Stress Defect Extent (% LCX) 0.00Rest Defect Extent (% LCX)0.00Rev. Defect Extent (% LCX)0.00 Stress Defect Extent (% RCA)0.00Rest Defect Extent (% RCA)0.00Rev. Defect Extent (% RCA)0.00 Stress Defect Extent (% CHELI)10.40Rest Defect Extent (% CHELI)19.80Rev. Defect Extent (% CHELI)0.00 Other Information Quality:Average Risk Assessment: Moderate Risk Conclusion 1. No evidence of vasodilator induced EKG changes. 2. Fixed apical defect suggestive of prior infarct without ischemia. 3. Normal LV function. EF > 60% 4. Low to moderate risk study.
--- NOTE | 2017-04-10 16:05 | PDOC ---
ARIEL RODRIGUEZ CRUISE DIRECTOR 04/10/17 1605: CARDIO Progress Notes Date and Time Date of Service 04/10/2017 Time of Evaluation 1540 Subjective Subjective: No Chest Pain, No shortness of breath, No Palpitations, Other ( complains of having low back pain) Vitals Vitals Vital Signs Date Time Temp Pulse Resp B/P (MAP) Pulse Ox O2 Delivery O2 Flow Rate FiO2 04/10/17 15:00 99.7 104 18 143/67 (92) 94 Room Air 99.7 Weight Weight [ ] Input and Output Intake and Output Intake and Output 04/10/17 07:00 Intake Total 1220 ml Balance 1220 ml Intake Oral 120 ml IV Total 1100 ml # Voids 7 Laboratory Labs Laboratory Tests Test 04/10/17 11:40 White Blood Count 13.5 x10^3/uL (4.0-11.0) Red Blood Count 2.97 x10^6/uL (3.50-5.40) Hemoglobin 9.0 g/dL (12.0-15.5) Hematocrit 27.3 % (36.0-47.0) Mean Corpuscular Volume 92 fL (79-100) Mean Corpuscular Hemoglobin 30 pg (25-35) Mean Corpuscular Hemoglobin Concent 33 g/dL (31-37) Red Cell Distribution Width 18.8 % (11.5-14.5) Platelet Count 462 x10^3/uL (140-400) Erythrocyte Sedimentation Rate 21 (0-25) Prothrombin Time 23.6 SEC (11.7-14.0) Prothromb Time International Ratio 2.3 (0.8-1.1) Sodium Level 141 mmol/L (136-145) Potassium Level 4.0 mmol/L (3.5-5.1) Chloride Level 104 mmol/L (98-107) Carbon Dioxide Level 29 mmol/L (21-32) Anion Gap 8 (6-14) Blood Urea Nitrogen 14 mg/dL (7-20) Creatinine 1.0 mg/dL (0.6-1.0) Estimated GFR (Cockcroft-Gault) 65.2 BUN/Creatinine Ratio 14 (6-20) Glucose Level 90 mg/dL (70-99) Calcium Level 8.0 mg/dL (8.5-10.1) Total Bilirubin 0.9 mg/dL (0.2-1.0) Aspartate Amino Transf (AST/SGOT) 21 U/L (15-37) Alanine Aminotransferase (ALT/SGPT) 23 U/L (14-59) Alkaline Phosphatase 52 U/L (46-116) Total Protein 7.2 g/dL (6.4-8.2) Albumin 3.3 g/dL (3.4-5.0) Albumin/Globulin Ratio 0.8 (1.0-1.7) Microbiology Micro Microbiology 04/09/17 Blood Culture - Preliminary, Resulted NO GROWTH AFTER 1 DAY Physical Exam HEENT: Neck Supple W Full Motion Chest: Symmetric LUNGS: Clear to Auscultation Heart: S1S2, RRR (SR), murmurs (3/6 systolic murmur to apex) Abdomen: Soft N/T Extremities: No Edema, No Calf Tenderness Neurology: alert, oriented, follow commands Assessment Assessment 1. Atypical chest pain: Likely GI. TTE with preserved EF with normal LV/RV function 2. Abdominal pain: better but complains of low back pain, positive for leukocytosis and fever. Defer to PCP 3. Hx of PE and chronic coumadin therapy: INR 2.3 4. Hx of breast CA with radiation 5. Anemia of chronic disease with thrombocytosis 6. GERD 7. Valvular insufficiency: mild TR and mild to Mod MR. 8. Severe pulmonary HTN: PAP 63 mmHg. Defer to PCP 9. Proteinuria/CKD? Recommendations 1. Continue with PPI. Start on 81 mg ECASA. No need for statin, good lipids with HDL in the 90s. 2. MPI revealed fixed apical defect. F/U in office in 4 weeks. Instructions given to pt if cardiac symptoms arise then will follow up sooner. MERLE MILNER MD 04/11/17 0912: CARDIO Progress Notes Plan Plan Late entry for 04/10. Pt. seen and examined. Agree with above ASSISTANT STORE LEADER note. No acute events overnight. MPI low risk. OK to DC from CV perspective. Will f/u in the office. Thanks. ARIEL RODRIGUEZ APRN Apr 10, 2017 16:05 MERLE MILNER MD Apr 11, 2017 09:12
[2017-04-10] MEDS: HYDROcodone/APAP 5/325MG 1 TAB TABLET PO PRN (17:43)
[2017-04-10 19:00] VITALS: BP 123/55
[2017-04-10 23:00] VITALS: BP 115/55
[2017-04-11 03:00] VITALS: BP 103/53
[2017-04-11] MEDS: PIPERACILLIN/TAZOBACTAM 3.375 GM in IV NORMAL SALINE 50ML 50 ML IV SCH (05:55)
[2017-04-11 07:00] VITALS: BP 125/83
[2017-04-11] MEDS ORDERED: ASPIRIN ENTERIC COATED 81 MG TABLET.DR. PO SCH (08:00)
[2017-04-11] MEDS: GABAPENTIN 100 MG CAPSULE. PO SCH (08:12)
[2017-04-11] MEDS: PANTOPRAZOLE 40 MG TABLET.DR. PO SCH (08:13)
[2017-04-11] MEDS: HYDROXYUREA 500 MG CAPSULE PO SCH (08:14)
[2017-04-11 08:56] LABS: INR 1.9 (0.8-1.1); PROTHROMBIN TIME PATIENT 20.5 SEC (11.7-14.0)
--- NOTE | 2017-04-11 10:11 | PDOC3 ---
Discharge Summary* Admitting Diagnosis Problems Medical Problems: (1) Abdominal pain Status: Acute (2) Lactic acidosis Status: Acute Problems: Final Diagnosis Problems Medical Problems: (1) Abdominal pain Status: Acute (2) Lactic acidosis Status: Acute Brief Hospital Course Ms. Subramanian is a 77 old [sex] who presented with [ ] Scheduled Calcium Carbonate/Vitamin D3 (Calcium + Vitamin D Tablet), 600 MG PO BID, ( Reported) Cyanocobalamin (Vitamin B-12) (Vitamin B-12), 1 TAB PO DAILY, (Reported) Gabapentin (Gabapentin), 2 CAP PO TID, (Reported) Glucosam/Chond/Hyalu/Cf Borate (Move Free Joint Health Tablet), 1 EACH PO BID, ( Reported) Magnesium Oxide (Magnesium), 1 CAP PO DAILY, (Reported) Pantoprazole Sodium (Protonix), 1 TAB PO DAILY Warfarin Sodium (Coumadin), 2 MG PO 4tabs/8mg po daily, (Reported) Scheduled PRN Acetaminophen (Acetaminophen), 650 MG PO PRN Q6HRS PRN for PAIN, (Reported) Hydrocodone Bit/Acetaminophen (Hydrocodone-Apap 5-325 ), 5-325 PO Q12HR PRN for PAIN, (Reported) Miscellaneous Medications Hydroxyurea (Hydroxyurea), 500 MG PO, (Reported) Discontinued Medications [place]-3 Fatty Acids/Fish Oil ([place] 3 1,000 Mg Softgel), 1 EACH PO BID, ( Reported) Time Spent Total time spent with patient [] minutes for coordination of care, counseling, and education. JENNIFER JIMENES MD Apr 11, 2017 10:11
--- NOTE | 2017-04-11 10:11 | PDOC ---
OBJECTIVE Vital Signs Vital Signs Date Time Temp Pulse Resp B/P (MAP) Pulse Ox O2 Delivery O2 Flow Rate FiO2 04/11/17 08:15 Room Air 04/11/17 07:00 97.9 78 18 125/83 (97) 94 Room Air 97.9 04/11/17 03:00 99.7 46 16 103/53 (70) 96 99.7 04/10/17 23:00 98.8 78 16 115/55 (75) 95 98.8 04/10/17 20:00 Room Air 04/10/17 19:00 98.8 81 18 123/55 (77) 95 98.8 04/10/17 17:43 20 92 Room Air 04/10/17 15:00 99.7 104 18 143/67 (92) 94 Room Air 99.7 04/10/17 11:00 99.4 100 18 140/63 (88) 97 Room Air 99.4 I & O Intake and Output 04/11/17 07:00 Intake Total 1580 ml Output Total 450 ml Balance 1130 ml Intake Oral 1480 ml IV Total 100 ml Output Urine Total 450 ml # Voids 8 COMMENT Lab Laboratory Tests Test 04/10/17 11:40 04/11/17 08:25 White Blood Count 13.5 x10^3/uL (4.0-11.0) Red Blood Count 2.97 x10^6/uL (3.50-5.40) Hemoglobin 9.0 g/dL (12.0-15.5) Hematocrit 27.3 % (36.0-47.0) Mean Corpuscular Volume 92 fL (79-100) Mean Corpuscular Hemoglobin 30 pg (25-35) Mean Corpuscular Hemoglobin Concent 33 g/dL (31-37) Red Cell Distribution Width 18.8 % (11.5-14.5) Platelet Count 462 x10^3/uL (140-400) Erythrocyte Sedimentation Rate 21 (0-25) Prothrombin Time 23.6 SEC (11.7-14.0) 20.5 SEC (11.7-14.0) Prothromb Time International Ratio 2.3 (0.8-1.1) 1.9 (0.8-1.1) Sodium Level 141 mmol/L (136-145) Potassium Level 4.0 mmol/L (3.5-5.1) Chloride Level 104 mmol/L (98-107) Carbon Dioxide Level 29 mmol/L (21-32) Anion Gap 8 (6-14) Blood Urea Nitrogen 14 mg/dL (7-20) Creatinine 1.0 mg/dL (0.6-1.0) Estimated GFR (Cockcroft-Gault) 65.2 BUN/Creatinine Ratio 14 (6-20) Glucose Level 90 mg/dL (70-99) Calcium Level 8.0 mg/dL (8.5-10.1) Total Bilirubin 0.9 mg/dL (0.2-1.0) Aspartate Amino Transf (AST/SGOT) 21 U/L (15-37) Alanine Aminotransferase (ALT/SGPT) 23 U/L (14-59) Alkaline Phosphatase 52 U/L (46-116) Total Protein 7.2 g/dL (6.4-8.2) Albumin 3.3 g/dL (3.4-5.0) Albumin/Globulin Ratio 0.8 (1.0-1.7) JENNIFER JIMENES MD Apr 11, 2017 10:11
[2017-04-11] MEDS ORDERED: PANT40TA3 PO (10:15)
[2017-04-11] MEDS ORDERED: ASPI-612 PO (10:15)
[2017-04-11 10:52] VITALS: BP 111/52
== END 2017-04-11 13:01 | disposition home or self-care (01) | DRG 392 ==
LOC: ER 19:19 → 5 SOUTH 22:59
PROVIDERS: ADMIT Internal Medicine; ATTEND Internal Medicine
DX: K21.9 Gastro-esophageal reflux disease without esophagitis (principal); E87.2 Acidosis; D63.8 Anemia in other chronic diseases classified elsewhere; I27.2 Other secondary pulmonary hypertension; K29.70 Gastritis, unspecified, without bleeding; D75.89 Other specified diseases of blood and blood-forming organs; D72.829 Elevated white blood cell count, unspecified; J45.909 Unspecified asthma, uncomplicated; N28.1 Cyst of kidney, acquired; Z79.01 Long term (current) use of anticoagulants; Z85.3 Personal history of malignant neoplasm of breast; Z86.711 Personal history of pulmonary embolism; Z90.12 Acquired absence of left breast and nipple; Z86.718 Personal history of other venous thrombosis and embolism; Z86.73 Personal history of transient ischemic attack (TIA), and cerebral infarction without residual deficits; Z87.11 Personal history of peptic ulcer disease; Z90.710 Acquired absence of both cervix and uterus; Z88.6 Allergy status to analgesic agent; I25.2 Old myocardial infarction
CPT/HCPCS: 36415; 74022; 74174; 76705; 78452; 80048; 80053; 80061; 81001; 83605; 83690; 84484; 85007; 85025; 85027; 85610; 85651; 85730; 87040; 93005; 93017; 93306; 96361; 96365; 96374; 96375; 96376; A9500; J2405; J2543; J2785; J3010; J7030; Q9967; 99285-25

== ENCOUNTER 2017-07-09 10:56 | Emergency (ER) | payer BC ==
[~2017-07-09 10:56] MED LIST changes: +ASPI-612 PO
[2017-07-09] MEDS ORDERED: ONDANSETRON PF 4 MG/2 ML VIAL. IV ONE ×2 (11:00→11:15)
[2017-07-09] MEDS ORDERED: fentaNYL PF VIAL 100 MCG/2 ML VIAL IV ONE (11:15)
--- NOTE | 2017-07-09 11:17 | PHYS DOC ---
Past Medical History Past Medical History: Cancer, Diverticulitis, GERD Additional Past Medical Histor: thrombocytosis, BREAST CANCER Past Surgical History: Hysterectomy, Other Additional Past Surgical Histo: colon resection, THYROIDECTOMY, L MASTECTOMY, LAMINECTOMY Alcohol Use: None Drug Use: None Adult General Chief Complaint Chief Complaint: NAUSEA/VOMITING/[facility] HPI Patient is a 77 year old female with a history of hypertension presents the ED complaining of abdominal pain times one day. Patient states she was seen at her PCPs office and recommended come to the ED for appendicitis evaluation. Describes the pain as sharp. Rates the pain as 8 out of 10. Associated symptoms include vomiting. States she has vomited twice today and twice last night. Denies chest pain, shortness of breath, dizziness, weakness, calf pain, dysuria , bowel/bladder changes. Review of Systems Review of Systems Constitutional: Denies fever or chills [] Eyes: Denies change in visual acuity, redness, or eye pain [] HENT: Denies nasal congestion or sore throat [] Respiratory: Denies cough or shortness of breath [] Cardiovascular: No additional information not addressed in HPI [] GI: Complains of abdominal pain and n/v. Denies bloody stools or diarrhea [] : Denies dysuria or hematuria [] Musculoskeletal: Denies back pain or joint pain [] Integument: Denies rash or skin lesions [] Neurologic: Denies headache, focal weakness or sensory changes [] Endocrine: Denies polyuria or polydipsia [] All other systems were reviewed and found to be within normal limits, except as documented in this note. Current Medications Current Medications Current Medications Medications (Trade) Dose Ordered Sig/Abbie Start Time Stop Time Status Last Admin Dose Admin Acetaminophen/ Hydrocodone Bitart (Lortab 5/325) 1 tab 1X ONCE 07/09/17 13:15 07/09/17 13:16 DC 07/09/17 13:37 1 TAB Fentanyl Citrate (Fentanyl 2ml Vial) 50 mcg 1X ONCE 07/09/17 11:15 07/09/17 11:16 DC 07/09/17 11:47 50 MCG Iohexol (Omnipaque 300 Mg/ml) 100 ml 1X ONCE 07/09/17 12:15 07/09/17 12:16 DC 07/09/17 12:18 100 ML Ondansetron HCl (Zofran) 4 mg 1X ONCE 07/09/17 11:15 07/09/17 11:16 DC Allergies Allergies Allergies Coded Allergies Type Severity Reaction Last Updated Verified codeine Adverse Reaction Intermediate Palpitations 02/21/16 Yes Physical Exam Physical Exam Constitutional: Well developed, well nourished, no acute distress, non-toxic appearance. [] HENT: Normocephalic, atraumatic, bilateral external ears normal, oropharynx moist, no oral exudates, nose normal. [] Eyes: PERRLA, EOMI, conjunctiva normal, no discharge. [] Neck: Normal range of motion, no tenderness, supple, no stridor. [] Cardiovascular:Heart rate regular rhythm, no murmur [] Lungs & Thorax: Bilateral breath sounds clear to auscultation [] Abdomen: Bowel sounds normal, soft, MILD DIFFUSE LOWER ABDOMINAL TENDERNESS, no masses, no pulsatile masses. [] Skin: Warm, dry, no erythema, no rash. [] Back: No tenderness, no CVA tenderness. [] Extremities: No tenderness, no cyanosis, no clubbing, ROM intact, no edema. [] Neurologic: Alert and oriented X 3, normal motor function, normal sensory function, no focal deficits noted. [] Psychologic: Affect normal, judgement normal, mood normal. [] Current Patient Data Vital Signs Vital Signs Date Time Temp Pulse Resp B/P (MAP) Pulse Ox O2 Delivery O2 Flow Rate FiO2 07/09/17 13:31 78 18 166/76 (106) 97 Room Air 07/09/17 11:09 99.3 99.3 Lab Values Laboratory Tests Test 07/09/17 11:04 07/09/17 11:30 Urine Collection Type Unknown Urine Color Yellow Urine Clarity Cloudy Urine pH 8.5 Urine Specific [place] 1.025 Urine Protein 100 mg/dL (NEG-TRACE) Urine Glucose (UA) Negative mg/dL (NEG) Urine Ketones (Stick) Negative mg/dL (NEG) Urine Blood Negative (NEG) Urine Nitrite Negative (NEG) Urine Bilirubin Negative (NEG) Urine Urobilinogen Dipstick 0.2 mg/dL (0.2 mg/dL) Urine Leukocyte Esterase Trace (NEG) Urine RBC Rare /HPF (0-2) Urine WBC Occ /HPF (0-4) Urine Squamous Epithelial Cells Few /LPF Urine Amorphous Sediment Present /HPF Urine Bacteria Few /HPF (0-FEW) White Blood Count 7.7 x10^3/uL (4.0-11.0) Red Blood Count 3.11 x10^6/uL (3.50-5.40) L Hemoglobin 9.3 g/dL (12.0-15.5) L Hematocrit 28.2 % (36.0-47.0) L Mean Corpuscular Volume 91 fL (79-100) Mean Corpuscular Hemoglobin 30 pg (25-35) Mean Corpuscular Hemoglobin Concent 33 g/dL (31-37) Red Cell Distribution Width 18.7 % (11.5-14.5) H Platelet Count 504 x10^3/uL (140-400) H Sodium Level 135 mmol/L (136-145) L Potassium Level 3.9 mmol/L (3.5-5.1) Chloride Level 98 mmol/L (98-107) Carbon Dioxide Level 28 mmol/L (21-32) Anion Gap 9 (6-14) Blood Urea Nitrogen 19 mg/dL (7-20) Creatinine 0.9 mg/dL (0.6-1.0) Estimated GFR (Cockcroft-Gault) 73.7 BUN/Creatinine Ratio 21 (6-20) H Glucose Level 116 mg/dL (70-99) H Calcium Level 8.9 mg/dL (8.5-10.1) Total Bilirubin 0.6 mg/dL (0.2-1.0) Aspartate Amino Transferase (AST) 18 U/L (15-37) Alanine Aminotransferase (ALT) 18 U/L (14-59) Alkaline Phosphatase 70 U/L (46-116) Troponin I Quantitative < 0.017 ng/mL (0.000-0.055) Total Protein 7.8 g/dL (6.4-8.2) Albumin 3.6 g/dL (3.4-5.0) Albumin/Globulin Ratio 0.9 (1.0-1.7) L Laboratory Tests 07/09/17 11:30 Laboratory Tests 07/09/17 11:30 EKG EKG []Normal sinus rhythm at 76 bpm. No acute T wave changes or STEMI. Radiology/Procedures Radiology/Procedures PROCEDURE: CT ABD PELV W/ IV CONTRST ONLY CT of the abdomen and pelvis with contrast, 07/09/2017: History: Diffuse lower abdominal pain Multidetector CT imaging was performed following an IV bolus injection of iodinated contrast material. No oral contrast material was administered for this study. Comparison is made to an exam from 02/27/2016. The liver is within normal limits in size. No hepatic mass is seen. There are prominent perihepatic collateral vessels present along the inferior aspect of the right lobe liver and at the hepatic hilum. A normal main portal vein is not evident. The findings suggest cavernous transformation of the portal vein. Similar findings have been present on multiple previous studies. The pancreas cannot be clearly from adjacent unopacified bowel but shows no specific abnormality. The spleen remains mildly enlarged measuring nearly 14 cm in craniocaudad extent. There is a moderate size right renal cyst. The kidneys show no evidence of obstruction. Moderate aortic calcific plaquing is present. No abdominal or pelvic adenopathy is seen. The uterus appears to be surgically absent. Several small scattered colonic diverticula are present. The bowel loops are not dilated. No free air is evident in the abdomen. There is a trace amount of free fluid in the deep pelvis. The left breast is surgically absent. There are moderate degenerative changes in the lumbar spine. IMPRESSION: 1. 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 2. Mild unchanged splenomegaly. 3. Trace amount of free fluid in the pelvis. 4. Right renal cyst. 5. Minimal colonic diverticulosis.[] Course & Med Decision Making Course & Med Decision Making Pertinent Labs and Imaging studies reviewed. (See chart for details) []Discussed labs and imaging with patient and compared with previous. Patient's pain resolved, patient walking around calling family for a ride. On reexamination, abdomen is soft nontender nondistended. No peritoneal signs. Patient tolerating by mouth. States she made an appointment with her PCP for later this week. Discussed the importance of follow-up and reasons to return to the ED. Patient understands and agrees with plan. Discussed case with Dr. Jimenes. Amy Disclaimer Amy Disclaimer This electronic medical record was generated, in whole or in part, using a voice recognition dictation system. Departure Departure Impression: Primary Impression: Abdominal pain Disposition: 01 HOME, SELF-CARE Condition: IMPROVED Referrals: JENNIFER JIMENES MD (PCP) Patient Instructions: Abdominal Pain AARON THOMPSON Jul 09, 2017 11:17
[2017-07-09 11:20] LABS: BILIRUBIN,URINE NEGATIVE (NEG); GLUCOSE,URINE NEGATIVE (NEG); NITRITE,URINE NEGATIVE (NEG); PH,URINE 8.5; PROTEIN,URINE 100 mg/dL (NEG-TRACE); UROBILINOGEN,URINE 0.2 mg/dL (0.2 mg/dL)
[2017-07-09 11:36] LABS: BACTERIA,URINE FEW /HPF (0-FEW); RBC,URINE RARE /HPF (0-2); SQUAMOUS EPITHELIAL CELL,UR FEW /LPF; WBC,URINE OCC /HPF (0-4)
[2017-07-09 11:46] LABS: HEMATOCRIT 28.2 % (36.0-47.0); HEMOGLOBIN 9.3 g/dL (12.0-15.5); RED BLOOD COUNT 3.11 x10^6/uL (3.50-5.40); RED CELL DISTRIBUTION WIDTH 18.7 % (11.5-14.5); WHITE BLOOD COUNT 7.7 x10^3/uL (4.0-11.0)
[2017-07-09 11:54] LABS: CALCIUM 8.9 mg/dL (8.5-10.1); CREATININE 0.9 mg/dL (0.6-1.0); GFR 73.7; POTASSIUM 3.9 mmol/L (3.5-5.1)
[2017-07-09 12:00] LABS: ALBUMIN 3.6 g/dL (3.4-5.0); ALBUMIN/GLOBULIN RATIO 0.9 (1.0-1.7); TOTAL BILIRUBIN 0.6 mg/dL (0.2-1.0); TOTAL PROTEIN 7.8 g/dL (6.4-8.2)
[2017-07-09] MEDS ORDERED: IOHEXOL 300 MG/ML 100ML VIAL. IV ONE (12:15)
--- NOTE | 2017-07-09 12:15 | RAD ---
Portable chest, 07/09/2017: History: Chest pressure, reflux Comparison is made to a study from 04/08/2017. The heart size and pulmonary vascularity are within normal limits. No pulmonary infiltrate is seen. There is mild chronic elevation of the right hemidiaphragm. There is no evidence of pleural fluid. IMPRESSION: No acute cardiopulmonary abnormality is detected.
--- NOTE | 2017-07-09 12:33 | EKG ---
[facility] [address] [place] [address] Test Date: 2017-07-09 Test Time: 11:11:59 Pat Name: ELSA JONES Department: Room: Gender: F [employer] Operator: : 1940 Requested By: AARON THOMPSON Order Number: [id number] Reading MD: Jimmy Muhammad MD Measurements Intervals [place] Rate: 76 P: 34 CT: 148 QRS: 36 QRSD: 86 T: 31 QT: 404 QTc: 459 Interpretive Statements SINUS RHYTHM Electronically Signed On 07-10-2017 15:12:37 CONCRETE CURER by Jimmy Muhammad MD
--- NOTE | 2017-07-09 12:54 | RAD ---
CT of the abdomen and pelvis with contrast, 07/09/2017: History: Diffuse lower abdominal pain Multidetector CT imaging was performed following an IV bolus injection of iodinated contrast material. No oral contrast material was administered for this study. Comparison is made to an exam from 02/27/2016. The liver is within normal limits in size. No hepatic mass is seen. There are prominent perihepatic collateral vessels present along the inferior aspect of the right lobe liver and at the hepatic hilum. A normal main portal vein is not evident. The findings suggest cavernous transformation of the portal vein. Similar findings have been present on multiple previous studies. The pancreas cannot be clearly from adjacent unopacified bowel but shows no specific abnormality. The spleen remains mildly enlarged measuring nearly 14 cm in craniocaudad extent. There is a moderate size right renal cyst. The kidneys show no evidence of obstruction. Moderate aortic calcific plaquing is present. No abdominal or pelvic adenopathy is seen. The uterus appears to be surgically absent. Several small scattered colonic diverticula are present. The bowel loops are not dilated. No free air is evident in the abdomen. There is a trace amount of free fluid in the deep pelvis. The left breast is surgically absent. There are moderate degenerative changes in the lumbar spine. IMPRESSION: 1. 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 2. Mild unchanged splenomegaly. 3. Trace amount of free fluid in the pelvis. 4. Right renal cyst. 5. Minimal colonic diverticulosis. PQRS Compliance Statement: One or more of the following individualized dose reduction techniques were utilized for this examination: 1. Automated exposure control 2. Adjustment of the mA and/or kV according to patient size 3. Use of iterative reconstruction technique
[2017-07-09] MEDS ORDERED: HYDROcodone/APAP 5/325MG 1 TAB TABLET PO ONE (13:15)
[2017-07-09 13:31] VITALS: BP 166/76
[2017-08-03] MEDS ORDERED: PIPE3.3734 IVP (09:14)
[2017-08-03] MEDS ORDERED: LACT1CAP19 PO (09:14)
== END 2017-07-09 13:42 | disposition home or self-care (01) ==
LOC: ER 10:56
DX: R10.30 Lower abdominal pain, unspecified (principal); R11.2 Nausea with vomiting, unspecified; K21.9 Gastro-esophageal reflux disease without esophagitis; I10 Essential (primary) hypertension; Z90.12 Acquired absence of left breast and nipple; Z90.710 Acquired absence of both cervix and uterus; Z90.49 Acquired absence of other specified parts of digestive tract; Z88.5 Allergy status to narcotic agent
CPT/HCPCS: 36415; 71010; 74177; 80053; 81001; 84484; 85027; 93005; 96374; 96375; 99285; J2405; J3010; Q9967

== ENCOUNTER 2017-11-02 17:13 | Inpatient (IN) | payer BC ==
[2017-11-02 17:53] LABS: BASO # 0.1 x10^3/uL (0.0-0.2); BASO % 1 % (0-3); EOS % 0 % (0-3); HEMATOCRIT 29.4 % (36.0-47.0); HEMOGLOBIN 9.7 g/dL (12.0-15.5); LYMPH # 0.4 x10^3/uL (1.0-4.8); LYMPH % 3 % (24-48); MEAN CORPUSCULAR HEMOGLOBIN 28 pg (25-35); MEAN CORPUSCULAR HGB CONC 33 g/dL (31-37); MEAN CORPUSCULAR VOLUME 84 fL (79-100); MONO # 0.7 x10^3/uL (0.0-1.1); MONO % 5 % (0-9); NEUT # 12.7 x10^3uL (1.8-7.7); NEUT % 92 % (31-73); PLATELET COUNT 875 x10^3/uL (140-400); WHITE BLOOD COUNT 13.9 x10^3/uL (4.0-11.0)
[2017-11-02 17:55] LABS: ADD MAN DIFF? YES
[2017-11-02 17:58] LABS: INR 2.7 (0.8-1.1); PROTHROMBIN TIME PATIENT 27.3 SEC (11.7-14.0)
[2017-11-02] MEDS: ONDANSETRON PF 4 MG/2 ML VIAL. IV ×2 (18:19→19:44)
[2017-11-02] MEDS: fentaNYL PF VIAL 100 MCG/2 ML VIAL IV (18:20)
[2017-11-02 18:21] LABS: % BANDS 1 % (0-9); % LYMPHS 4 % (24-48); % MONOS 4 % (0-10); % SEGS 91 % (35-66)
[2017-11-02 18:26] LABS: ANION GAP 13 (6-14); ANISOCYTOSIS SLIGHT; BLOOD UREA NITROGEN 18 mg/dL (7-20); BUN/CREATININE RATIO 16 (6-20); CALCIUM 9.2 mg/dL (8.5-10.1); CARBON DIOXIDE 25 mmol/L (21-32); CHLORIDE 101 mmol/L (98-107); CREATININE 1.1 mg/dL (0.6-1.0); GFR 58.4; GLUCOSE 171 mg/dL (70-99); HYPOCHROMIA SLIGHT; PAPPENHEIMER BODIES OCC; PLT ESTIMATE INCREASED (ADEQUATE); POIKILOCYTOSIS SLIGHT; POLYCHROMASIA SLIGHT; POTASSIUM 3.7 mmol/L (3.5-5.1); SODIUM 139 mmol/L (136-145)
[2017-11-02 18:32] LABS: ALBUMIN 3.7 g/dL (3.4-5.0); ALBUMIN/GLOBULIN RATIO 0.8 (1.0-1.7); ALK PHOS 85 U/L (46-116); ALT (SGPT) 26 U/L (14-59); AST (SGOT) 19 U/L (15-37); TOTAL BILIRUBIN 0.3 mg/dL (0.2-1.0); TOTAL PROTEIN 8.2 g/dL (6.4-8.2)
[2017-11-02 19:37] LABS: BILIRUBIN,URINE NEGATIVE (NEG); CLARITY,URINE CLOUDY; COLOR,URINE YELLOW; GLUCOSE,URINE NEGATIVE (NEG); NITRITE,URINE NEGATIVE (NEG); PH,URINE 6.5; PROTEIN,URINE 100 mg/dL (NEG-TRACE); UROBILINOGEN,URINE 0.2 mg/dL (0.2 mg/dL)
[2017-11-02 19:38] LABS: TROPONINI < 0.017 ng/mL (0.000-0.055)
[2017-11-02] MEDS: MORPHINE SULFATE 4 MG/ML DISP.SYRIN. IV (19:44)
[2017-11-02 19:53] LABS: BACTERIA,URINE 0 /HPF (0-FEW); SQUAMOUS EPITHELIAL CELL,UR MOD /LPF
[2017-11-02 19:54] LABS: HYALINE CASTS, URINE MODERATE /HPF
[2017-11-02] MEDS: MORPHINE SULFATE 10 MG/ML VIAL. IV (22:59)
[2017-11-03] MEDS: MORPHINE SULFATE 10 MG/ML VIAL. IV ×2 (01:05→05:28)
[2017-11-03] MEDS ORDERED: ACETAMINOPHEN 325 MG TABLET. PO (08:15)
[2017-11-03] MEDS ORDERED: ASPIRIN ENTERIC COATED 81 MG TABLET.DR. PO (08:30)
[2017-11-03] MEDS: PANTOPRAZOLE 40 MG TABLET.DR. PO (08:46)
[2017-11-03] MEDS: GABAPENTIN 300 MG CAPSULE. PO ×3 (08:46→20:10)
[2017-11-03] MEDS: CYANOCOBALAMIN (VITAMIN B-12) 1,000 MCG TABLET. PO (08:46)
[2017-11-03] MEDS: LIDOCAINE (700MG/PATCH) PATCH. TD (08:47)
[2017-11-03] MEDS: HYDROXYUREA 500 MG CAPSULE PO (08:49)
[2017-11-03] MEDS ORDERED: GABAPENTIN 100 MG CAPSULE. PO (09:00)
[2017-11-03] MEDS ORDERED: HYDROXYUREA 500 MG CAPSULE PO (10:00)
[2017-11-03 12:01] LABS: SEDIMENTATION RATE 24 (0-25)
[2017-11-03] MEDS: HYDROcodone/APAP 5/325MG 1 TAB TABLET PO (12:28)
[2017-11-03] MEDS ORDERED: WARFARIN 2 MG TABLET. PO (16:00)
[2017-11-03] MEDS: WARFARIN 4 MG TABLET. PO (17:18)
[2017-11-04] MEDS: HYDROcodone/APAP 5/325MG 1 TAB TABLET PO ×3 (03:58→18:33)
[2017-11-04] MEDS: PANTOPRAZOLE 40 MG TABLET.DR. PO (06:09)
[2017-11-04 07:06] LABS: TROPONINI 0.074 ng/mL (0.000-0.055)
[2017-11-04] MEDS: CYANOCOBALAMIN (VITAMIN B-12) 1,000 MCG TABLET. PO (08:08)
[2017-11-04] MEDS: LIDOCAINE (700MG/PATCH) PATCH. TD (08:08)
[2017-11-04] MEDS: GABAPENTIN 300 MG CAPSULE. PO ×3 (08:08→21:13)
[2017-11-04] MEDS: HYDROXYUREA 500 MG CAPSULE PO (08:10)
[2017-11-04] MEDS: WARFARIN 4 MG TABLET. PO (15:36)
[2017-11-05 04:30] LABS: INR 3.4 (0.8-1.1); PROTHROMBIN TIME PATIENT 32.2 SEC (11.7-14.0)
[2017-11-05] MEDS: PANTOPRAZOLE 40 MG TABLET.DR. PO (05:53)
[2017-11-05] MEDS: LIDOCAINE (700MG/PATCH) PATCH. TD (09:47)
[2017-11-05] MEDS: GABAPENTIN 300 MG CAPSULE. PO (09:48)
[2017-11-05] MEDS: CYANOCOBALAMIN (VITAMIN B-12) 1,000 MCG TABLET. PO (09:48)
[2017-11-05] MEDS: HYDROXYUREA 500 MG CAPSULE PO (09:52)
[2017-11-05] MEDS ORDERED: WARFARIN 4 MG TABLET. PO (16:00)
== END 2017-11-05 14:17 | disposition home or self-care (01) | DRG 74 ==
LOC: ER 17:13 → 5 NORTH 20:57
DX: M79.2 Neuralgia and neuritis, unspecified (principal); D63.8 Anemia in other chronic diseases classified elsewhere; E89.0 Postprocedural hypothyroidism; I10 Essential (primary) hypertension; J45.909 Unspecified asthma, uncomplicated; K21.9 Gastro-esophageal reflux disease without esophagitis; M19.90 Unspecified osteoarthritis, unspecified site; Z79.01 Long term (current) use of anticoagulants; Z85.3 Personal history of malignant neoplasm of breast; Z86.711 Personal history of pulmonary embolism; Z86.718 Personal history of other venous thrombosis and embolism; Z86.73 Personal history of transient ischemic attack (TIA), and cerebral infarction without residual deficits; Z90.12 Acquired absence of left breast and nipple; Z90.49 Acquired absence of other specified parts of digestive tract; Z90.710 Acquired absence of both cervix and uterus; Z88.8 Allergy status to other drugs, medicaments and biological substances
CPT/HCPCS: 36415; 71045; 72146; 74176; 80053; 81001; 84484; 85007; 85025; 85610; 85651; 93005; 93306; 96374; 96375; 96376; 97116-GP; 97162-GP; 99285; 99285-25; J2270; J2405; J3010

== ENCOUNTER → 2018-02-04 | Outpatient (CLI) | payer BC | END | disposition home or self-care (01) | LOC: KCIC DEXA 12:03 | DX: Z13.820 Encounter for screening for osteoporosis (principal); M85.88 Other specified disorders of bone density and structure, other site; Z78.0 Asymptomatic menopausal state | CPT/HCPCS: 77080 ==

== ENCOUNTER → 2018-09-17 | Outpatient (CLI) | payer BC, OTHER ==
[2017-11-05 10:30] VITALS: BP 99/46
[~2018-09-17] MED LIST changes: +ACET650S PO; -ACET650S19 PO; -HYDR-2758 PO; +HYDR-2761 PO; +IOHEXOL 240 MG/ML 50ML VIAL. PO ONE; +IOHEXOL 300 MG/ML 100ML VIAL. IV ONE; +LACT1CAP19 PO; +PIPE3.3734 IVP; +WARF7.5T45 PO; -WARF7.5T6 PO
--- NOTE | 2018-09-17 11:39 | RAD ---
PQRS Compliance Statement: One or more of the following individualized dose reduction techniques were utilized for this examination: 1. Automated exposure control 2. Adjustment of the mA and/or kV according to patient size 3. Use of iterative reconstruction technique CT chest, abdomen and pelvis 09/17/2018 INDICATION: Malignant neoplasm the left breast. COMPARISON: CT abdomen/pelvis November 02, 2017, CT chest December 05, 2004 TECHNIQUE: Multiple axial CT images of the chest, abdomen and pelvis were obtained after the intravenous demonstration of 75 cc Omnipaque 300. Coronal and sagittal reformats are provided. FINDINGS: CHEST: Right thyroid nodule measures 3.6 x 3.4 cm. Further evaluation with thyroid ultrasound may be of benefit if not already previously performed. There are no pathologically enlarged axillary, hilar or mediastinal lymph nodes. Heart size is within normal limits. There is no significant pericardial effusion. Thoracic esophagus is normal in appearance. Descending thoracic aorta measures up to 3.4 cm. Mild to moderate calcified and noncalcified atheromatous plaque is identified involving the thoracic aorta. Left mastectomy changes are identified. No suspicious internal mammary lymph nodes are identified. There is a 4 mm solid noncalcified pulmonary nodule in the right lower lobe (series 2, image 37). There are no pleural effusions. No pulmonary vascular congestion or pneumothorax. Lungs are otherwise clear. Abdomen/pelvis: 8 mm hypoattenuating lesion is identified in the right hepatic dome (series 4, image 12). This finding is stable from November 02, 2017. Spleen is enlarged measuring 15.5 cm in AP dimension, not significantly changed since the prior examination. Adrenal glands and pancreas are normal in appearance. Gallbladder surgically absent. There is no intrahepatic or extrahepatic biliary ductal dilatation. Abdominal aorta is normal in course and caliber. Moderate calcified atheromatous plaque is identified. There are no pathologically enlarged lymph nodes in the abdomen and pelvis. There is no free fluid or free intraperitoneal air. There is suggestion of chronic occlusion of the portal vein with cavernous transformation. Extensive collateral vessels are identified in the right midabdomen. There is a right lateral interpolar renal cyst measuring 6.4 cm. The kidneys enhance symmetrically. There is no suspicious renal mass. There is no hydronephrosis. There are no suspected calculi within the kidneys, ureters or urinary bladder. Oral contrast was administered. Opacified bowel loops demonstrate normal mucosal fold pattern. Small and large bowel are normal in caliber. There is no evidence for bowel obstruction. There are no pericolonic inflammatory changes. Appendix is not definitively visualized. Urinary bladder is within normal limits given degree of distention. No suspicious pelvic mass is identified. Nonspecific sclerotic density is identified involving the left iliac bone measuring 14 mm, stable. No new or suspicious osseous lesions are identified. IMPRESSION: 1. There is a 4 mm solid noncalcified pulmonary nodule in the right lower lobe. Attention on follow-up exams is recommended. 2. Right thyroid nodule measures 3.6 x 3.4 cm. Further evaluation with thyroid ultrasound is recommended. 3. 8 mm hypoattenuating lesion in the right hepatic dome is stable. Findings favor benign etiology such as a simple cyst or hemangioma. 4. 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 Extensive collateral vessels are identified in the right midabdomen. 5. Splenomegaly, stable. Electronically signed by: Mary Arora MD (09/17/2018 11:34 AM) [facility]
--- NOTE | 2018-09-17 14:24 | RAD ---
BONE SCAN WHOLE BODY History: Left breast cancer Comparison: CT chest and pelvis exam the same day and March 23, 2016 exam Findings: Whole body bone scan was performed. Patient was injected with 25 mCi technetium 99m MDP. There is focus of increased radiotracer activity of the distal right femur not seen on previous exam, questionable subtle focus of increased radiotracer activity of the distal left femur also not apparent on previous exam. There are some foci of activity of the bilateral knees as seen previously and also of the bilateral shoulders probably degenerative in etiology. There is also some increased radiotracer activity associated with the bilateral ankles and proximal feet bilaterally right greater than left. Impression: 1. There are some foci of increased radiotracer activity of the distal femurs greater on the right for which preferably MR or at least radiographic evaluation is advised as underlying lesions not excluded. 2. Polyarticular foci of increased radiotracer activity are more likely related to degenerative change Electronically signed by: Doc Thibodeaux MD (09/17/2018 2:20 PM) [id number]
== END | disposition home or self-care (01) ==
LOC: NM 08:00
PROVIDERS: ATTEND Internal Medicine Hematology & Oncology
DX: C50.912 Malignant neoplasm of unspecified site of left female breast (principal); R91.1 Solitary pulmonary nodule; E04.1 Nontoxic single thyroid nodule; R16.1 Splenomegaly, not elsewhere classified; N28.1 Cyst of kidney, acquired; I70.0 Atherosclerosis of aorta; J45.909 Unspecified asthma, uncomplicated; Z17.0 Estrogen receptor positive status [ER+]; Z90.49 Acquired absence of other specified parts of digestive tract; Z79.01 Long term (current) use of anticoagulants
CPT/HCPCS: 71260; 74177; 78306; 96374; A9503

== ENCOUNTER → 2018-11-28 | Outpatient (CLI) | payer OTHER ==
[2017-11-05 10:30] VITALS: BP 99/46
[~2018-11-28] MED LIST changes: -IOHEXOL 240 MG/ML 50ML VIAL. PO ONE; -IOHEXOL 300 MG/ML 100ML VIAL. IV ONE
--- NOTE | 2018-11-28 15:19 | RAD ---
EXAM: Chest sonogram. HISTORY: Right chest wall mass. TECHNIQUE: Sonographic imaging of the right chest wall superior to the right breast was performed. COMPARISON: None. FINDINGS: There is no suspicious sonographic finding within the right chest at the site of palpable concern. IMPRESSION: No suspicious sonographic finding within the right chest and a site of palpable concern. Given a history of contralateral breast malignancy, correlation with prior mammograms and a possible chest CT can be performed if there is concern for a sonographically occult lesion. Electronically signed by: Stacie Thomas MD (11/28/2018 3:16 PM) [place] [id number]
== END | disposition home or self-care (01) ==
LOC: US 14:01
PROVIDERS: ATTEND Internal Medicine Hematology & Oncology
DX: R22.2 Localized swelling, mass and lump, trunk (principal); Z17.0 Estrogen receptor positive status [ER+]; Z85.3 Personal history of malignant neoplasm of breast
CPT/HCPCS: 76604

== ENCOUNTER → 2019-01-31 | Outpatient (CLI) | payer OTHER ==
[~2019-01-31] VITALS: Ht 172.7 cm; Wt 73.0 kg
[2019-01-31 09:12] VITALS: BP 114/57
[2019-01-31 10:02] LABS: HEMATOCRIT 20.8 % (36.0-47.0); HEMOGLOBIN 6.8 g/dL (12.0-15.5)
[2019-01-31 11:13] VITALS: BP 148/64
[2019-01-31 11:28] VITALS: BP 125/58
[2019-01-31 12:28] VITALS: BP 114/55
== END | disposition home or self-care (01) ==
LOC: OPS 08:26
PROVIDERS: ATTEND Internal Medicine Hematology & Oncology
DX: C50.912 Malignant neoplasm of unspecified site of left female breast (principal); Z17.0 Estrogen receptor positive status [ER+]
CPT/HCPCS: 36415; 36430; 85014; 85018; 86850; 86900; 86901; 86920; P9016

== ENCOUNTER 2019-02-03 06:47 | Outpatient (CLI) | payer OTHER ==
[~2019-02-03] VITALS: Ht 175.3 cm; Wt 72.6 kg
[2019-02-03] VITALS (9 sets, daily range): BP systolic 117–148; BP diastolic 59–72
[2019-02-03 07:55] LABS: BASO # 0.1 x10^3/uL (0.0-0.2); BASO % 2 % (0-3); EOS % 1 % (0-3); HEMATOCRIT 25.2 % (36.0-47.0); HEMOGLOBIN 8.3 g/dL (12.0-15.5); LYMPH # 0.7 x10^3/uL (1.0-4.8); LYMPH % 26 % (24-48); MEAN CORPUSCULAR HEMOGLOBIN 34 pg (25-35); MEAN CORPUSCULAR HGB CONC 33 g/dL (31-37); MEAN CORPUSCULAR VOLUME 102 fL (79-100); MONO # 0.2 x10^3/uL (0.0-1.1); MONO % 6 % (0-9); NEUT # 1.8 x10^3uL (1.8-7.7); NEUT % 66 % (31-73); PLATELET COUNT 254 x10^3/uL (140-400); RED BLOOD COUNT 2.47 x10^6/uL (3.50-5.40); RED CELL DISTRIBUTION WIDTH 18.9 % (11.5-14.5); WHITE BLOOD COUNT 2.7 x10^3/uL (4.0-11.0)
[2019-02-03] MEDS ORDERED: MIDAZOLAM HCL/PF 2 MG/2 ML VIAL. ONE (08:22)
[2019-02-03] MEDS ORDERED: fentaNYL PF VIAL 100 MCG/2 ML VIAL ONE (08:22)
[2019-02-03] MEDS ORDERED: LIDOCAINE WITH 8.4% SOD BICARB 3 ML DISP.SYRIN. ONE (08:37)
[2019-02-03] MEDS ORDERED: MIDAZOLAM HCL/PF 2 MG/2 ML VIAL. IV ONE (09:00)
[2019-02-03] MEDS ORDERED: LIDOCAINE WITH 8.4% SOD BICARB 3 ML DISP.SYRIN. IJ ONE (09:00)
[2019-02-03] MEDS ORDERED: fentaNYL PF VIAL 100 MCG/2 ML VIAL IV ONE (09:00)
--- NOTE | 2019-02-03 09:52 | RAD ---
CT-guided bone marrow biopsy. 02/03/2019 9:49 AM Indication: Thrombocytopenia Discussion: The risks and benefits of the procedure, including but not limited to, bleeding and infection were discussed patient. Informed consent was obtained. The patient was brought to the CT scanner and placed in the prone position. A timeout procedure was performed. Electrophonic Engineer CT imaging of the pelvis demonstrated left ilium amenable to bone marrow biopsy. The overlying soft tissues were prepped and draped using maximum sterile barrier technique. 1% lidocaine without epinephrine was administered for local anesthesia. Under intermittent CT guidance, an OncControl needle was advanced into the bone marrow of the left iliac crest. 2 Aspirates and 1 core biopsy samples were obtained. Samples were delivered to pathology was present at the time of procedure. The needle was removed and manual pressure held to achieve hemostasis. No immediate complications were identified. The procedure was performed under conscious sedation including continuous cardiopulmonary monitoring via dedicated sedation nurse. Sedation time: 20 minutes Impression: Successful CT-guided bone marrow biopsy of the left iliac crest . PQRS Compliance Statement: One or more of the following individualized dose reduction techniques were utilized for this examination: 1. Automated exposure control 2. Adjustment of the mA and/or kV according to patient size 3. Use of iterative reconstruction technique
--- NOTE | 2019-02-03 10:14 | NUR ---
Discharge Note: FERCHO JONES Discharge instructions and discharge home medications reviewed with Patient and a copy given. All questions have been answered and understanding verbalized. The following instructions and handouts were given: moderate sedation and post bone marrow aspiration care Discontinued lines and drains: Peripheral IV intact. Patient discharged to Home or Self Care withFriendvia Wheelchair
== END 2019-02-03 10:15 | disposition home or self-care (01) ==
LOC: INTRAD 06:47
PROVIDERS: ATTEND Internal Medicine Hematology & Oncology
DX: D69.6 Thrombocytopenia, unspecified (principal); C50.912 Malignant neoplasm of unspecified site of left female breast; Z17.0 Estrogen receptor positive status [ER+]
CPT/HCPCS: 36415; 38222; 77012; 85025; 85610; 85730; J2250; J3010; 88184; 88185; 88237; 99152

== ENCOUNTER → 2019-12-29 | Outpatient (CLI) | payer MEDICARE ==
[2019-02-03 10:00] VITALS: BP 117/59
[~2019-12-29] MED LIST changes: -BISA10SU2 RC; +BISA10SU4 RC; +CYAN-25 PO; -CYAN10005 PO; +GABA600T7 PO; -MAGN2400 PO; +MAGN24003 PO; -PANT40TA3 PO; +PANT40TA77 PO; +WARF4TAB68 PO
--- NOTE | 2019-12-29 15:43 | PAIN ---
DATE OF SERVICE: 12/29/2019 INITIAL CONSULTATION FOR PAIN CLINIC CHIEF COMPLAINT: Back and bilateral lower extremity pain. HISTORY OF PRESENT ILLNESS: This is a 79-year-old female who presents with history of pain since about 09/2018, so it is about a year and 3 months. The patient reports pain in the low back and bilateral lower extremities, slightly more on the right than the left, but present bilaterally, worse with walking, standing, changing positions, better with sitting or lying down. The patient describes the pain as sharp and stabbing across the back, tingling and radiating into the lower extremities, mostly in the posterior gluteus, posterior thigh and some in the calf on the right, but generally just in the thighs and low back. The patient reports it is cramping, aching, shooting, stabbing, worse with walking as noted, better with sitting or lying down, but does awaken her from sleep occasionally, but not often. The patient reports it does not affect her bowel or bladder control with any incontinence, but can cause some sense of urgency. She does report it affects her ability to walk. She is using a cane and she has it with her today, usually in her left hand. The patient has not had any recent other treatments. She has had chiropractic treatment in the past and physical therapy. She is doing stretching and strengthening exercises on her own and works out on her own in a gym until it closed recently due to coronavirus. She has been having to do her workout routines at home, but she is still doing it daily and walking daily as the weather has gotten a little bit warmer which she reports she used to be able to tolerate much better, but now it is becoming difficult for her to walk more than about 2 blocks without having to go back. The patient rates her disability rating from 0-10, 10 being the worst, is a 5 with family and home responsibilities, recreation and occupation, 1 with self-care and life support activities. The patient did have MRI scan of the lumbar spine dated 09/30/2019 showing a multilevel disk endplate and facet degenerative change with a mass effect at L3-L4 with marked central canal stenosis and bilateral foraminal disk bulging resulting in moderate to marked bilateral foraminal stenosis with possible impingement on the bilateral foramen L3 nerve root. L4-L5 shows minimal annular disk bulging, prominent foraminal disk bulging and endplate osteophytosis resulting in moderate narrowing of the anterior portion of the bilateral neural foramina with foraminal disk bulging approaching the anterior undersurface of the bilateral foraminal L4 nerve roots with moderate to marked central canal stenosis. L5-S1 shows bilateral foraminal disk bulging resulting in moderate narrowing of the inferior portion of the bilateral neural foramina approaching inferior surface of bilateral foraminal L5 nerve roots with [id number] central canal stenosis at this level as well. The patient reports no loss of motor function, but significant fatigability, especially at the right lower extremity with ambulating. PAST MEDICAL HISTORY: Significant for arthritis, osteopenia, thrombocytosis, previous left breast cancer, status post radiation, history of blood clots. PREVIOUS SURGERY: Includes cataract surgery bilaterally, colon resection in 1991, mastectomy in 2015, cholecystectomy in 2017, lumbar laminectomy in 2014, hysterectomy in 1987 and thyroidectomy in 1969. CURRENT MEDICATIONS: Protonix, calcium, Coumadin, gabapentin, glucosamine, vitamin B12 and magnesium. ALLERGIES: THE PATIENT REPORTS SHE IS ALLERGIC TO CODEINE. FAMILY HISTORY: Significant for no major medical problems or conditions that she is aware of. SOCIAL HISTORY: The patient does not drink alcohol, does not smoke. Does not use any illegal, illicit or recreational drugs. She is single, lives locally in [place], [place] and is currently retired. REVIEW OF SYSTEMS: The patient's review of systems is positive for those items mentioned in history of present illness. All systems reviewed and otherwise negative. It is complete, full and well documented on the patient's chart. PHYSICAL EXAMINATION: VITAL SIGNS: The patient's blood pressure is 140/58, pulse 79, respirations 18, temperature 99.3 degrees Fahrenheit, height is 5 feet 8 inches, weight 168 pounds. GENERAL: The patient is awake, alert, oriented, appropriate, very pleasant demeanor. HEENT: Exam shows normocephalic, atraumatic. Extraocular movements are intact and symmetrical. Oral cavity shows mucous membranes moist and pink. Dentition is intact. NECK: Shows anterior throat supple without palpable lymphadenopathy noted. Swallow reflex symmetrical. CHEST: Shows normal on inspection. Breath sounds are clear to auscultation bilaterally. HEART: Shows S1, S2 clear. No murmurs auscultated. ABDOMEN: Soft, nontender, nondistended. No organomegaly is noted. BACK: The patient's back shows spine grossly in the midline, normal-appearing cervical lordotic curvature, some minor increase in thoracic kyphotic curvature and minor flattening of lumbar lordotic curvature. Paraspinous muscle shows symmetrical in the lumbar distribution without asymmetry, atrophy or hypertrophy. With palpation shows some mild tenderness in the low lumbar distribution of the paraspinous muscles only bilaterally, but again appears symmetrical without radiation of pain, no tenderness over the spinous processes, sacrum or sacroiliac regions. The patient's back shows good rotational motion of lumbar spine, both laterally greater than 10 degrees right and left as well as extension greater than 10 degrees, forward flexion 45 degrees without significant increase in pain. EXTREMITIES: The patient's lower extremities show deep tendon reflexes at 1+ in the patellar and tendo calcaneus tendons are equal. Motor exam is strong with approximately 4 on a scale of 5 on the right, 5/5 on the left with dorsiflexion, extension, quadriceps and hamstring flexion. Peripheral pulses are 1+ posterior tibia. No peripheral edema is noted bilaterally. Lower extremities are warm and dry to touch, equal in color and appearance. Straight leg raise noted to be mildly positive on the right and left at about 40-45 degrees, but decreased with knee flexion on the left only, not decrease in knee flexion on the right. Gaenslen's and Jonathan's maneuvers are negative bilaterally. The patient is able to stand, stand on her toes without significant difficulty or loss of balance, walking with a slight favoring gait, does appear to favor the right lower extremity with a slight limp, and again using a cane in her left hand. SKIN: Shows warm and dry, good turgor. No edema. No sores, rashes or bruising throughout. IMPRESSION: 1. This is a 79-year-old female with approximately a year and 3-month's history of low back, bilateral lower extremity pain, somewhat worse on the right than the left in a radicular fashion following L5-S1 dermatomal distribution. 2. MRI scan of lumbar spine as noted. 3. Arthritis. 4. Thrombocytosis with anticoagulation therapy. PLAN: Options were discussed with the patient including conservative medical managements, continued physical therapies, interventional techniques and she is doing exercise daily and has for over the past year as well as stretching and strengthening. She would like to pursue interventional techniques. We discussed a lumbar epidural steroid injection using description as well as anatomical models to describe the procedure. The patient will wait for preauthorization with her insurance provider, have her return to clinic after that time for a lumbar epidural steroid injection for her clinical radiculopathy right greater than left lower extremity at L4-L5 for an L4-L5 level translaminar epidural steroid injection at that time. In the meantime, the patient will continue doing stretching and strengthening exercises, walking as tolerated and will have her return once she is cleared to be off of her Coumadin through her qa automation engineer if deem safe and appropriate, we will have her hold this and with an INR pending and we will plan on epidural steroid injection at that time. KIARRA RODRÍGUEZ MD DR: DAMARIS/alex JOB#: [id number] / [id number]
== END | disposition home or self-care (01) ==
LOC: PNCL 10:56
PROVIDERS: ATTEND Anesthesiology
DX: M79.605 Pain in left leg (principal); M79.604 Pain in right leg; M19.90 Unspecified osteoarthritis, unspecified site; Z79.01 Long term (current) use of anticoagulants
CPT/HCPCS: G0463

== ENCOUNTER → 2020-01-13 | Outpatient (CLI) | payer MEDICARE ==
[2019-02-03 10:00] VITALS: BP 117/59
[2020-01-13 12:38] LABS: PROTHROMBIN TIME PATIENT 16.2 SEC (11.7-14.0)
== END ==
LOC: LAB 09:23
PROVIDERS: ATTEND Anesthesiology
DX: Z79.01 Long term (current) use of anticoagulants (principal)
CPT/HCPCS: 36415; 85610

== ENCOUNTER → 2020-01-13 | Outpatient (CLI) | payer MEDICARE ==
[2019-02-03 10:00] VITALS: BP 117/59
[~2020-01-13] MED LIST changes: +IOHEXOL 180 MG/ML 10 ML VIAL. ONE; +methylPREDNISolone ACETATE 40 MG/ML VIAL. ONE; +methylPREDNISolone ACETATE 80 MG/ML VIAL. ONE
--- NOTE | 2020-01-13 13:28 | PAIN ---
DATE OF SERVICE: 01/13/2020 PROGRESS NOTE FOR PAIN CLINIC DIAGNOSES: Lumbar radiculopathy with lumbar degenerative disk disease, lumbar spinal stenosis and post-lumbar laminectomy syndrome. HISTORY OF PRESENT ILLNESS: The patient is a 79-year-old female who returns for followup status post initial evaluation and clearance with her primary physician to hold her Coumadin. She has been off this for 5 days now with INR today at 1.3. The patient reports still significant pain in the low back and into the bilateral lower extremities without significant change. Worse with walking, standing. Better with sitting or lying down. The patient reports no new motor or sensory deficits, no new bowel or bladder incontinence. Reports her pain is a 9 on a scale of 10 at its worst, 7 on average, 7 at its least and is a 7 today. The patient reports it is radiating, cramping, aching, sharp and shooting, stabbing at times in the back and legs, mostly in the posterior gluteus, posterior thighs bilaterally. PHYSICAL EXAMINATION: VITAL SIGNS: The patient's blood pressure is 134/59, pulse 83, respirations 18, temperature is 99.0 degrees Fahrenheit, height is 5 feet 8 inches and weight is 166 pounds. GENERAL: The patient is awake, alert, oriented, appropriate, very pleasant demeanor. HEENT: Shows normocephalic, atraumatic. Extraocular movements are intact and symmetrical. Oral cavity: Mucous membranes moist and pink. Dentition is intact. NECK: Shows anterior throat supple without palpable lymphadenopathy noted. Swallow reflex symmetrical. CHEST: Shows normal on inspection. Breath sounds clear to auscultation bilaterally. HEART: Shows S1, S2 clear. No murmurs auscultated. ABDOMEN: Soft, nontender, nondistended. No palpable organomegaly is noted. No rebound or guarding demonstrated. BACK: Shows spine grossly in the midline. Normal appearing thoracic kyphosis and some minor flattening of lumbar lordotic curvature with well-healed surgical scarring noted. Lumbar paraspinous muscle shows symmetrical on inspection, on palpation shows some moderate tenderness diffusely bilaterally going diffusely without significant radiation. EXTREMITIES: The patient's lower extremity deep tendon reflexes at 1+ in the patellar and tendo calcaneus tendons. Motor exam is 4 on a scale of 5 on the right and 5/5 on the left with dorsiflexion, extension, quadriceps and hamstring flexion, but intact. Peripheral pulses are 1+. No peripheral edema bilaterally. Options were discussed with the patient. The patient's old chart was reviewed as current medication regimen updated, current review of systems updated today as well. We will proceed with a lumbar epidural steroid injection today with fluoroscopic guidance. Risks were again discussed including, but not limited to bleeding, infection, possibility of epidural hematoma, subsequent neurological compromise, dural puncture, headaches, spinal cord and/or nerve damage, side effects of steroid medication and poor results regarding pain control. The patient understands and wished to proceed. The patient will return to clinic in approximately 2 weeks for followup. She was counseled on return appointment, activity level and side effects to be aware of. DIAGNOSIS: Lumbar radiculopathy with lumbar degenerative disk disease, lumbar spinal stenosis and post-lumbar laminectomy syndrome. PROCEDURE: Lumbar epidural steroid injection, translaminar approach at the L5-S1 level using C-arm fluoroscopic guidance under sterile prep and drape using local anesthetic. MEDICATION INJECTED: A total of 120 mg Depo-Medrol plus 10 mL of preservative-free normal saline and 2 mL of contrast. CONDITION AT DISCHARGE: Stable. The patient tolerated procedure well, had no complications. KIARRA RODRÍGUEZ MD DR: DAMARIS/alex JOB#: [id number] / [id number]
== END ==
LOC: PNCL 12:33
PROVIDERS: ATTEND Anesthesiology
DX: M51.16 Intervertebral disc disorders with radiculopathy, lumbar region (principal); M48.061 Spinal stenosis, lumbar region without neurogenic claudication; M96.1 Postlaminectomy syndrome, not elsewhere classified
CPT/HCPCS: 62323; J1030; J1040; Q9965

== ENCOUNTER 2020-09-05 12:01 | Emergency (ER) | payer MEDICARE ==
[~2020-09-05] VITALS: Ht 172.7 cm; Wt 75.4 kg
[~2020-09-05 12:01] MED LIST changes: -ASPI-612 PO; +ASPI-886 PO; -IOHEXOL 180 MG/ML 10 ML VIAL. ONE; -methylPREDNISolone ACETATE 40 MG/ML VIAL. ONE; -methylPREDNISolone ACETATE 80 MG/ML VIAL. ONE
[2020-09-05] MEDS ORDERED: MORPHINE SULFATE 4 MG/ML VIAL. IV/SQ PRN (13:30)
[2020-09-05 13:40] LABS: BASO # 0.1 x10^3/uL (0.0-0.2); BASO % 1 % (0-3); EOS # 0.1 x10^3/uL (0.0-0.7); EOS % 1 % (0-3); HEMATOCRIT 30.2 % (36.0-47.0); HEMOGLOBIN 10.1 g/dL (12.0-15.5); LYMPH # 1.4 x10^3/uL (1.0-4.8); LYMPH % 13 % (24-48); MEAN CORPUSCULAR HEMOGLOBIN 26 pg (25-35); MEAN CORPUSCULAR HGB CONC 34 g/dL (31-37); MEAN CORPUSCULAR VOLUME 78 fL (79-100); MONO # 0.5 x10^3/uL (0.0-1.1); MONO % 4 % (0-9); NEUT # 8.5 x10^3/uL (1.8-7.7); NEUT % 81 % (31-73); PLATELET COUNT 658 x10^3/uL (140-400); RED BLOOD COUNT 3.89 x10^6/uL (3.50-5.40); RED CELL DISTRIBUTION WIDTH 21.2 % (11.5-14.5); WHITE BLOOD COUNT 10.5 x10^3/uL (4.0-11.0)
--- NOTE | 2020-09-05 13:40 | PHYS DOC ---
Past Medical History Past Medical History: Anemia, Cancer, Diverticulitis, GERD Additional Past Medical Histor: thrombocytosis, BREAST CANCER (HODAN LOPEZ APRN) Past Surgical History: Cholecystectomy, Hysterectomy, Other Additional Past Surgical Histo: colon resection, THYROIDECTOMY, L MASTECTOMY, LAMINECTOMY (HODAN LOPEZ APRN) Smoking Status: Never Smoker Alcohol Use: None Drug Use: None (HODAN LOPEZ APRN) General Adult EDM: Chief Complaint: MULTIPLE COMPLAINTS HPI: HPI: Patient is a 80 year old female with a history of thrombocytopenia who presents to the ED today complaining of dizziness and weakness that she experienced last night when she woke up to use the bathroom. Patient denies falling. She states symptoms are worse when she is up and walking. She states she typically gets similar symptoms when her "blood count" is low. Denies any chest pain, shortness of breath. (HODAN LOPEZ APRN) Review of Systems: Review of Systems: Constitutional: Denies fever or chills. [] Eyes: Denies change in visual acuity. [] HENT: Denies nasal congestion or sore throat. [] Respiratory: Denies cough or shortness of breath. [] Cardiovascular: Denies chest pain or edema. [] GI: Denies abdominal pain, nausea, vomiting, bloody stools or diarrhea. [] : Denies dysuria. [] Musculoskeletal: Denies back pain or joint pain. [] Integument: Denies rash. [] Neurologic: Reports dizziness and weakness. Denies headache, focal weakness or sensory changes. [] Psychiatric: Denies depression or anxiety. [] (HODAN LOPEZ APRN) Heart Score: Risk Factors: Risk Factors: DM, Current or recent (<one month) smoker, HTN, HLP, family history of CAD, obesity. Risk Scores: Score 0 - 3: 2.5% MACE over next 6 weeks - Discharge Home Score 4 - 6: 20.3% MACE over next 6 weeks - Admit for Clinical Observation Score 7 - 10: 72.7% MACE over next 6 weeks - Early Invasive Strategies (HODAN LOPEZ APRN) Current Medications: Current Medications Medications (Trade) Dose Ordered Sig/Abbie Start Time Stop Time Status Last Admin Dose Admin Morphine Sulfate (Morphine Sulfate) 4 mg PRN Q15MIN PRN 09/05/20 13:30 09/06/20 13:29 (HODAN LOPEZ APRN) Allergies: Allergies: Allergies Coded Allergies Type Severity Reaction Last Updated Verified codeine Adverse Reaction Intermediate Palpitations 01/31/19 Yes (HODAN LOPEZ APRN) Physical Exam: PE: Constitutional: Well developed, well nourished, no acute distress, non-toxic appearance. [] HENT: Normocephalic, atraumatic, bilateral external ears normal, oropharynx moist, no oral exudates, nose normal. [] Eyes: PERRLA, EOMI, conjunctiva normal, no discharge. [] Neck: Normal range of motion, no tenderness, supple, no stridor. [] Cardiovascular:Heart rate regular rhythm, no murmur [] Lungs & Thorax: Bilateral breath sounds clear to auscultation [] Abdomen: Bowel sounds normal, soft, no tenderness, no masses, no pulsatile masses. [] Skin: Warm, dry, no erythema, no rash. [] Back: No tenderness, no CVA tenderness. [] Extremities: No tenderness, no cyanosis, no clubbing, ROM intact, no edema. [] Neurologic: Alert and oriented X 3, normal motor function, normal sensory function, no focal deficits noted. Cranial nerves II through XII intact Psychologic: Affect normal, judgement normal, mood normal. [] (HODAN LOPEZ APRN) Current Patient Data: Vital Signs: Vital Signs Date Time Temp Pulse Resp B/P (MAP) Pulse Ox O2 Delivery O2 Flow Rate FiO2 09/05/20 13:18 97.2 98 20 167/73 (104) 100 Room Air 97.2 (HODAN LOPEZ APRN) EKG: EK interpreted by Dr. Stiles sinus rhythm heart rate 88 no STEMI [] (HODAN LOPEZ APRN) Radiology/Procedures: Radiology/Procedures: []PROCEDURE: CT HEAD WO CONTRAST CT head without contrast 09/05/2020. Reason for exam: Dizziness. Noncontrast images were performed. Exposure: One or more of the following individualized dose reduction techniques were utilized for this examination: 1. Automated exposure control 2. Adjustment of the mA and/or kV according to patient size 3. Use of iterative reconstruction technique. Comparison is made with a study of 10/13/2008. There is no apparent intracranial mass, hemorrhage or abnormal extra-axial fluid collection. There is patchy low attenuation through the cerebral white matter suggesting chronic small vessel ischemic injury. There is suggestion of some volume loss in the right cerebellar hemisphere. This had a similar appearance previously. No new area of abnormal density is seen. The ventricles and basilar cisterns are normally positioned. Bone windows show no apparent fracture of the skull or abnormal sinus or mastoid opacification. IMPRESSION: No apparent acute abnormality. Electronically signed by: Lei Carson Jr., MD (09/05/2020 2:39 PM) [id number] DICTATED and SIGNED BY: LEI CARSON Jr, MD DATE: 09/05/20 [id number] PROCEDURE: CHEST AP ONLY AP chest. HISTORY: Dizziness AP view was taken of the chest. Heart is normal in size. Patient's not taken a deep inspiration. There is mild linear atelectasis in the right lung base. There are no other acute infiltrates. IMPRESSION: 1. Mild linear basilar atelectasis without other infiltrates. Electronically signed by: Sheng Diaz MD (09/05/2020 2:39 PM) [facility] DICTATED and SIGNED BY: SHENG DIAZ MD DATE: 09/05/20 [id number] (HODAN LOPEZ APRN) Course & Med Decision Making: Course & Med Decision Making Pertinent Labs and Imaging studies reviewed. (See chart for details) This is a 80-year-old female patient presenting to the ED today with weakness and dizziness that she experienced last night when she got up. She has history of thrombocytopenia and reports similar symptoms anytime her blood count is low. Her last blood transfusion was 1 year ago. CBC with a normal WBC, hemoglobin 10.1 with hematocrit of 30.2. CMP with no acute findings. CT of the head and chest x-rays interpreted by radiologist are negative for any acute findings. Urine analysis is grossly contaminated. Vitals are stable. Feeling better. Discharge to home. Was tested for COVID-19. Results will be called to her in the course of this week, was instructed to quarantine herself. (HODAN LOPEZ APRN) Dragon Disclaimer: Dragon Disclaimer: This electronic medical record was generated, in whole or in part, using a voice recognition dictation system. (HODAN LOPEZ APRN) Departure Departure Impression: Primary Impression: Dizziness Additional Impressions: Weakness Person under investigation for COVID-19 Disposition: 01 DC HOME SELF CARE/HOMELESS Condition: STABLE Referrals: LUIS LI D.O. (PCP) follow up in the course of this week Patient Instructions: Dizziness, [id number], Weakness, [id number] Additional Instructions: You were evaluated in the emergency room, your CAT scan of the head and chest x- ray are negative for any acute findings. Your hemoglobin is 10.1, you do not need a transfusion for this. We tested you for COVID-19, we will call you with the results in the course of this week. Quarantine yourself until you get results from us. Follow-up with your doctor in the next 1 to 2 weeks. Come back to the ED at any point symptoms worsen Attending Signature Attending Signature I have reviewed the PA/TOMATO PASTE MAKER's note and plan of care. I was available for consultation as needed during the patient's visit in the emergency department. I agree with the clinical impression, plan, and disposition. (WHIT STILES DO) HODAN LOPEZ APRN Sep 05, 2020 13:40 WHIT STILES DO Sep 05, 2020 17:49
[2020-09-05 13:55] LABS: BILIRUBIN,URINE NEGATIVE (NEG); CLARITY,URINE CLEAR; COLOR,URINE YELLOW; NITRITE,URINE NEGATIVE (NEG); PROTEIN,URINE NEGATIVE (NEG-TRACE); UROBILINOGEN,URINE 0.2 mg/dL (0.2 mg/dL)
[2020-09-05 14:00] LABS: BARBITURATES NEG (NEG); BENZODIAZEPINES NEG (NEG); CANNABINOIDS NEG (NEG); COCAINE NEG (NEG); METHADONE NEG (NEG); OPIATES NEG (NEG); PHENCYCLIDINE NEG (NEG)
[2020-09-05 14:00] LABS: CALCIUM 9.4 mg/dL (8.5-10.1); CREATININE 1.1 mg/dL (0.6-1.0); POTASSIUM 4.7 mmol/L (3.5-5.1)
[2020-09-05 14:02] LABS: BACTERIA,URINE FEW /HPF (0-FEW)
[2020-09-05 14:02] LABS: ALBUMIN/GLOBULIN RATIO 1.1 (1.0-1.7); MAGNESIUM 2.4 mg/dL (1.8-2.4); TOTAL BILIRUBIN 0.5 mg/dL (0.2-1.0); TOTAL PROTEIN 7.7 g/dL (6.4-8.2)
[2020-09-05 14:04] LABS: RBC,URINE 0 /HPF (0-2)
[2020-09-05 14:12] LABS: AMPHETAMINE/METHAMPHETAMINE NEG (NEG)
[2020-09-05] MEDS ORDERED: MECLIZINE HCL 12.5 MG TABLET. PO ONE (14:15)
[2020-09-05 14:22] LABS: ANISOCYTOSIS MOD; PLT ESTIMATE INCREASED (ADEQUATE); POLYCHROMASIA SLIGHT; SCHISTOCYTES OCC
--- NOTE | 2020-09-05 14:50 | RAD ---
AP chest. HISTORY: Dizziness AP view was taken of the chest. Heart is normal in size. Patient's not taken a deep inspiration. Ther e is mild linear atelectasis in the right lung base. There are no other acute infiltrates. IMPRESSION: 1. Mild linear basilar atelectasis without other infiltrates. Electronically signed by: Sheng Diaz MD (09/05/2020 2:39 PM) [facility]
--- NOTE | 2020-09-05 14:50 | RAD ---
CT head without contrast 09/05/2020. Reason for exam: Dizziness. Noncontrast images were performed. Exposure: One or more of the following individualized dose reducti on techniques were utilized for this examination: 1. Automated exposure control 2. Adjustment of th e mA and/or kV according to patient size 3. Use of iterative reconstruction technique. Comparison is made with a study of 10/13/2008. There is no apparent intracranial mass, hemorrhage or abnormal extra-axial fluid collection. There is patchy low attenuation through the cerebral white matter suggesting chronic small vessel ischemic in jury. There is suggestion of some volume loss in the right cerebellar hemisphere. This had a similar appearance previously. No new area of abnormal density is seen. The ventricles and basilar cisterns a re normally positioned. Bone windows show no apparent fracture of the skull or abnormal sinus or mast oid opacification. IMPRESSION: No apparent acute abnormality. Electronically signed by: Jimi Carson Jr., MD (09/05/2020 2:39 PM) [id number]
[2020-09-05 15:23] VITALS: BP 116/55
--- NOTE | 2020-09-06 03:53 | EKG ---
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
--- NOTE | 2020-09-07 10:22 | NUR ---
IP: Attempted to contact pt concerning COVID results. No answer. Left a voicemail to return the call.
--- NOTE | 2020-09-07 10:32 | NUR ---
IP: Pt returned the call and I informed her of the negative COVID test. Pt verbalized understanding.
== END 2020-09-05 15:54 | disposition home or self-care (01) ==
LOC: ER 12:01
DX: R42 Dizziness and giddiness (principal); Z85.3 Personal history of malignant neoplasm of breast; R53.1 Weakness; K21.9 Gastro-esophageal reflux disease without esophagitis; D64.89 Other specified anemias; Z90.49 Acquired absence of other specified parts of digestive tract; Z90.710 Acquired absence of both cervix and uterus; Z98.890 Other specified postprocedural states; Z88.5 Allergy status to narcotic agent; Z20.822 Contact with and (suspected) exposure to COVID-19
CPT/HCPCS: 36415; 70450; 71045; 80053; 80307; 81001; 83735; 83880; 84443; 84484; 85025; 87086; 93005; 96374; 99285; C9803; J2270; J8597; U0003

== ENCOUNTER → 2020-12-07 | Outpatient (CLI) | payer MEDICARE ==
[~2020-12-07] MED LIST changes: +APIX5TAB PO; +TRAM50TA PO
--- NOTE | 2020-12-07 10:57 | PDOC ---
Progress Note - Pain Clinic Date of Service: DOS: DATE: 12/07/20 TIME: 10:52 Diagnosis: Dx: Lumbar radiculopathy with lumbar degenerative disc disease lumbar spinal stenosis and lumbar postlaminectomy syndrome History or Present Illness: HPI: 80-year-old female returns for follow-up last seen January 13, 2020. Patient underwent lumbar epidural steroid traction x1 with good results but did not follow-up as she reports that the pain came back after a few months in the low back and bilateral lower extremities. Patient reports now it is severe in the low back rating the bilateral posterior gluteus posterior thighs and posterior calves right equal to left patient reports is an 8 on scale 10 is worse over the past week 7 on average 7 its least is a 7 today. Pain described as cramping and severe aching dull shooting in the lower extremities worse with walking standing changing positions better with sitting or laying down generally is not awaken her from sleep at night. Patient had MRI scan and was reviewed with her today as well showing stenosis as well as degenerative changes at multiple levels and previous surgical changes as well. Patient is been doing exercise classes at a seniors exercise class at the local [facility] also taking tramadol as well as [id number] ibuprofen with moderate decrease in pain. Patient reports no loss of motor function with significant tenderness and pain in the low back and lower extremities as noted. Patient reports no new bowel or bladder incontinence. Physical Exam: VS: Blood pressure is 140/63 pulse 71 respirations 18 temperature 98.4 F height is 5 feet 8 inches weight 156 pounds PE: PHYSICAL EXAMINATION: GENERAL: The patient is awake, alert, oriented, appropriate, very pleasant demeanor HEENT: Shows normocephalic, atraumatic. Extraocular movements are intact and symmetrical. Oral cavity: Mucous membranes moist and pink. NECK: Shows anterior throat supple without palpable lymphadenopathy noted. Swallow reflex symmetrical. CHEST: Shows normal on inspection. Breath sounds are clear bilaterally, no rales rhonchi or wheezes. HEART: Shows S1, S2 clear. No murmurs auscultated. ABDOMEN: Soft, nontender, nondistended, obese. No palpable organomegaly is noted. No rebound or guarding demonstrated. BACK: Shows spine grossly in the midline. Normal-appearing cervical lordotic curvature. There is slightly increased thoracic kyphosis, some minor flattening of the lumbar lordotic curvature. Well-healed surgical scar noted in the midline. Lumbar paraspinous muscles show symmetrical on inspection, on palpation shows some moderate tenderness diffusely throughout the upper, middle and lower distribution of the paraspinous muscles bilaterally and also into the lower thoracic paraspinous musculature, firm and tender, but without specific trigger points, without radiation of pain. The patient has good rotational motion of the lumbar spine, both laterally as well as extension and flexion without significant difficulty. No tenderness over the spinous processes, sacrum or sacroiliac regions. EXTREMITIES: Lower extremities show deep tendon reflexes 1+ in the patellar and tendo calcaneus tendons. Motor exam is 4 on a scale of 5 with right dorsiflexion, extension, quadriceps and hamstring flexion and 5/5 on the left. Peripheral pulses are 1+ posterior tibial. No peripheral edema is noted bilaterally. Lower extremities are warm and dry to touch, equal in color and appearance. Straight leg raise noted to be positive on the right about 35 degrees, left side is negative. Gaenslen's and Jonathan's maneuvers are negative bilaterally as well. SKIN: Shows warm and dry, good turgor. No edema. No sores, rashes or bruising throughout. Procedure: Procedure: Options discussed with the patient. Patient chart reviews her current medication regimen updated current review of systems updated today as well. We will proceed with preauthorization for a lumbar epidural steroid injection as she did very well with this in the past but pain returning down the bilateral lower extremities and L5-S1 dermatomal distribution right equal to left. Once clearance has been given to hold her Eliquis for 3 days and preauthorization with insurance provider will plan on translaminar L5-S1 level lumbar epidural steroid injection. Patient continue with stretching strength exercises and has been going to the [facility] doing exercise through a seniors exercise class and will continue this as well. Medication Injected: Med Injected: None Condition at Discharge: Condition at Discharge: Condition at discharge is stable. KIARRA RODRÍGUEZ MD Dec 07, 2020 10:57
== END | disposition home or self-care (01) ==
LOC: PNCL 10:12
PROVIDERS: ATTEND Anesthesiology
DX: M51.16 Intervertebral disc disorders with radiculopathy, lumbar region (principal); M48.061 Spinal stenosis, lumbar region without neurogenic claudication; M96.1 Postlaminectomy syndrome, not elsewhere classified; E78.00 Pure hypercholesterolemia, unspecified; J45.909 Unspecified asthma, uncomplicated; E66.9 Obesity, unspecified; K21.9 Gastro-esophageal reflux disease without esophagitis; M19.90 Unspecified osteoarthritis, unspecified site; Z85.3 Personal history of malignant neoplasm of breast; Z98.51 Tubal ligation status; Z98.890 Other specified postprocedural states; Z79.899 Other long term (current) drug therapy; Z88.5 Allergy status to narcotic agent; Z82.49 Family history of ischemic heart disease and other diseases of the circulatory system
CPT/HCPCS: G0463

== ENCOUNTER → 2020-12-29 | Outpatient (CLI) | payer MEDICARE ==
[~2020-12-29] MED LIST changes: +IOHEXOL 180 MG/ML 10 ML VIAL. ONE; +methylPREDNISolone ACETATE 40 MG/ML VIAL. ONE; +methylPREDNISolone ACETATE 80 MG/ML VIAL. ONE
--- NOTE | 2020-12-29 10:26 | PDOC ---
Progress Note - Pain Clinic Date of Service: DOS: DATE: 12/29/20 TIME: 10:23 Diagnosis: Dx: Lumbar radiculopathy with lumbar degenerative disc disease lumbar spinal stenosis and lumbar postlaminectomy syndrome History or Present Illness: HPI: 80-year-old female returns to follow-up status post initial evaluation and preauthorization for lumbar epidural steroid injection. Patient is obtained this now would like to proceed. Patient reports pain still extending in the low back and bilateral lower extremities posterior gluteus posterior thighs posterior calves with increased symptoms with walking standing changing positions better with sitting or lying down generally does not awaken from sleep at night patient reports pain is cramping in the back sharp in the back shooting in the legs and can be severe with ambulation. Patient reports it is a 7 on scale 10 is worse over the past week 7 on average 7 its least is a 7 today. Patient reports no new motor or sensory deficits no new bowel or bladder incontinence or other complaints. Physical Exam: VS: Blood pressure is 128/64 pulse 94 respirations 18 temperature 98.1 F height 5 feet 8 inches weight 158 pounds PE: PHYSICAL EXAMINATION: GENERAL: The patient is awake, alert, oriented, appropriate, very pleasant demeanor HEENT: Shows normocephalic, atraumatic. Extraocular movements are intact and symmetrical. Oral cavity: Mucous membranes moist and pink. NECK: Shows anterior throat supple without palpable lymphadenopathy noted. Swallow reflex symmetrical. CHEST: Shows normal on inspection. Breath sounds are clear bilaterally, distant but no rales or rhonchi. HEART: Shows S1, S2 clear. No murmurs auscultated. ABDOMEN: Soft, nontender, nondistended, obese. No palpable organomegaly is noted. No rebound or guarding demonstrated. BACK: Shows spine grossly in the midline. Normal-appearing cervical lordotic curvature. There is slightly increased thoracic kyphosis, some minor flattening of the lumbar lordotic curvature. Lumbar paraspinous muscles show symmetrical on inspection, on palpation shows some moderate tenderness diffusely throughout the upper, middle and lower distribution of the paraspinous muscles without specific trigger points, without radiation of pain. The patient has good rotational motion of the lumbar spine, both laterally as well as extension and flexion without significant difficulty. EXTREMITIES: Lower extremities show deep tendon reflexes 1+ in the patellar and tendo calcaneus tendons. Motor exam is 4 on a scale of 5 with right dorsiflexion, extension, quadriceps and hamstring flexion and 5/5 on the left. Peripheral pulses are 1+ posterior tibial. No peripheral edema is noted bilaterally. Lower extremities are warm and dry to touch, equal in color and appearance. SKIN: Shows warm and dry, good turgor. No edema. No sores, rashes or bruising throughout. Procedure: Procedure: Options discussed with the patient. Patient chart reviews her current medication regimen updated current review of systems updated today as well. We will proceed with a lumbar epidural steroid ejections today as the first in the series with fluoroscopic guidance. Risks were discussed including but not limited to: Bleeding, infection, possibility of epidural hematoma and subsequent neurological compromise, dural puncture, headaches, spinal cord and/or nerve damage, side effects of steroid medication, and poor results regarding pain control. Patient understands and wished to proceed. Patient will return to clinic in approximate 2 weeks for follow-up, was counseled as return appointment activity level and side effects beware. Patient will restart her Eliquis tomorrow December 30, 2020. Medication Injected: Med Injected: Procedure is lumbar epidural steroid injection under local anesthetic using sterile prep and drape at the L5-S1 level using C-arm fluoroscopic guidance in both AP and lateral views medications injected is 120 mg Depo-Medrol + 10 mL preservative-free normal saline and 2 mL contrast- condition at discharge is stable patient tolerated procedure well had no complications. Condition at Discharge: Condition at Discharge: Condition at discharge stable, patient alert the procedure well and had no complications. KIARRA RODRÍGUEZ MD December 29, 2020 10:26
--- NOTE | 2020-12-29 10:26 | PDOC4 ---
PROCEDURE Procedure Patient was consented for lumbar epidural steroid injection. Risks were dis cussed including but not limited to: Bleeding, infection, possibility of epidural hematoma and subsequent neurological compromise, dural puncture, headaches, spinal cord and/or nerve damage, side effects of steroid medication, and poor results regarding pain control. Patient understands and wished to proceed. Procedure is lumbar epidural steroid injection under local anesthetic using sterile prep and drape at the L5-S1 level using C-arm fluoroscopic guidance in both AP and lateral views medications injected is 120 mg Depo-Medrol + 10 mL preservative-free normal saline and 2 mL contrast- condition at discharge is stable patient tolerated procedure well had no complications. KIARRA RODRÍGUEZ MD December 29, 2020 10:26
== END | disposition home or self-care (01) ==
LOC: PNCL 09:16
PROVIDERS: ATTEND Anesthesiology
DX: M51.16 Intervertebral disc disorders with radiculopathy, lumbar region (principal); M48.061 Spinal stenosis, lumbar region without neurogenic claudication; M96.1 Postlaminectomy syndrome, not elsewhere classified; E78.00 Pure hypercholesterolemia, unspecified; E66.9 Obesity, unspecified; E03.9 Hypothyroidism, unspecified; J45.909 Unspecified asthma, uncomplicated; K21.9 Gastro-esophageal reflux disease without esophagitis; Z85.3 Personal history of malignant neoplasm of breast; Z90.710 Acquired absence of both cervix and uterus; Z98.51 Tubal ligation status; Z98.890 Other specified postprocedural states; Z79.899 Other long term (current) drug therapy; Z88.5 Allergy status to narcotic agent; Z82.49 Family history of ischemic heart disease and other diseases of the circulatory system; Z83.3 Family history of diabetes mellitus
CPT/HCPCS: 62323; J1030; J1040; Q9965

== ENCOUNTER → 2021-01-12 | Outpatient (CLI) | payer MEDICARE ==
[~2021-01-12] MED LIST changes: -IOHEXOL 180 MG/ML 10 ML VIAL. ONE; -methylPREDNISolone ACETATE 40 MG/ML VIAL. ONE; -methylPREDNISolone ACETATE 80 MG/ML VIAL. ONE
--- NOTE | 2021-01-12 10:54 | PDOC ---
Progress Note - Pain Clinic Date of Service: DOS: DATE: 01/12/21 TIME: 10:51 Diagnosis: Dx: Lumbar radiculopathy lumbar degenerative disc disease lumbar spinal stenosis and lumbar post laminectomy syndrome History or Present Illness: HPI: 80-year-old female returns for follow-up status post lumbar epidural steroid injection x1. Patient reports about 80% improvement in the low back and bilateral lower extremities. Patient reports pain is returning gradually but still doing much better she is increasing her distance walking doing household activities traveling with greater ease and comfort sleeping better at night pain does not awaken her from sleep at this time patient reports she feels much better overall rates her pain is a 3 on scale 10 is worst average and least over the past week and is a 3 today. Patient scribes pain is cramping in the low back dull rating the posterior gluteus and thighs bilaterally but only with extended standing walking or bending and stooping activities which is working in her garden. Patient reports no new motor or sensory deficits no new bowel or bladder incontinence complaints. Patient continues to go to her exercise class and is doing stretching strength exercises as well on her own outside the class. Physical Exam: VS: Blood pressure is 123/60 pulse 70 respirations 18 temperature 98.1 F height is 5 feet 8 inches weight is 156 pounds PE: PHYSICAL EXAMINATION: GENERAL: The patient is awake, alert, oriented, appropriate, very pleasant de meanor HEENT: Shows normocephalic, atraumatic. Extraocular movements are intact and symmetrical. Oral cavity: Mucous membranes moist and pink. NECK: Shows anterior throat supple without palpable lymphadenopathy noted. Swallow reflex symmetrical. CHEST: Shows normal on inspection. Breath sounds are clear bilaterally. HEART: Shows S1, S2 clear. No murmurs auscultated. ABDOMEN: Soft, nontender, nondistended, obese. No palpable organomegaly is noted. No rebound or guarding demonstrated. BACK: Shows spine grossly in the midline. Normal-appearing cervical lordotic curvature. There is slightly increased thoracic kyphosis, some minor flattening of the lumbar lordotic curvature. Lumbar paraspinous muscles show symmetrical on inspection, on palpation shows some moderate tenderness diffusely throughout the upper, middle and lower distribution of the paraspinous muscles without specific trigger points, without radiation of pain. The patient has good rotational motion of the lumbar spine, both laterally as well as extension and flexion without significant difficulty. No tenderness over the spinous processes, sacrum or sacroiliac regions. EXTREMITIES: Lower extremities show deep tendon reflexes 1+ in the patellar and tendo calcaneus tendons. Motor exam is 4 on a scale of 5 with right dorsiflexion, extension, quadriceps and hamstring flexion and 5/5 on the left. Peripheral pulses are 1+ posterior tibial. No peripheral edema is noted bilaterally. Lower extremities are warm and dry to touch, equal in color and appearance. . SKIN: Shows warm and dry, good turgor. No edema. No sores, rashes or bruising throughout. Procedure: Procedure: Options discussed with patient. Patient's old chart was reviewed as her current medication regimen updated current review of systems updated today as well. We will proceed with preauthorization for second lumbar epidural steroid injections patient did very well for the first injection about 80% improvement in the pain returning down the bilateral lower extremities posterior gluteus posterior thighs and L5-S1 dermatomal distribution. Patient continue with stretching strength exercises as well as attending her exercise class as currently. Patient will also continue oral analgesics anti-inflammatories as currently. Once approved, patient will return to clinic for a translaminar approach L5-S1 level lumbar epidural steroid injection with fluoroscopic guidance. Medication Injected: Med Injected: None Condition at Discharge: Condition at Discharge: Condition at discharge stable. KIARRA RODRÍGUEZ MD January 12, 2021 10:54
== END | disposition home or self-care (01) ==
LOC: PNCL 09:49
PROVIDERS: ATTEND Anesthesiology
DX: M51.16 Intervertebral disc disorders with radiculopathy, lumbar region (principal); M48.061 Spinal stenosis, lumbar region without neurogenic claudication; M96.1 Postlaminectomy syndrome, not elsewhere classified; E78.00 Pure hypercholesterolemia, unspecified; J45.909 Unspecified asthma, uncomplicated; I10 Essential (primary) hypertension; K21.9 Gastro-esophageal reflux disease without esophagitis; E66.9 Obesity, unspecified; M19.90 Unspecified osteoarthritis, unspecified site; Z90.710 Acquired absence of both cervix and uterus; Z98.51 Tubal ligation status; Z98.890 Other specified postprocedural states; Z79.899 Other long term (current) drug therapy; Z85.3 Personal history of malignant neoplasm of breast; Z88.5 Allergy status to narcotic agent
CPT/HCPCS: G0463

== ENCOUNTER → 2021-01-26 | Outpatient (CLI) | payer MEDICARE ==
[~2021-01-26] MED LIST changes: +IOHEXOL 180 MG/ML 10 ML VIAL. ONE; +methylPREDNISolone ACETATE 40 MG/ML VIAL. ONE; +methylPREDNISolone ACETATE 80 MG/ML VIAL. ONE
--- NOTE | 2021-01-26 10:42 | PDOC ---
Progress Note - Pain Clinic Date of Service: DOS: DATE: 01/26/21 TIME: 10:40 Diagnosis: Dx: Lumbar radiculopathy with lumbar degenerative disease lumbar spinal stenosis and post lumbar laminectomy syndrome History or Present Illness: HPI: 80-year-old female returns for follow-up status post lumbar epidural steroid action x1. Patient did very well with about 100% improvement until she fell few weeks ago and has increased pain in the low back and right greater than left lower extremities. Patient reports prior to that she is doing very well with distance walking doing household activities during traveling and sleeping much better at night. Patient reports the pain returning down the low back more in the right than the left but bilateral lower extremities posterior gluteus p osterior thigh posterior calf worse with walking standing changing positions patient reports her pain is a 4 on scale 10 is worst average and a 3 at its least is a 4 today patient has aching and dull shooting sometimes constant severe with standing better with sitting or laying down. Patient reports no new motor or sensory deficits no new bowel or bladder complaints. Patient stopped her Eliquis 3 days ago. Physical Exam: VS: Blood pressure 143/65 pulse 85 respirations 18 temperature 98.8 F height is 5 foot 8 inches weight is 157 pound PE: PHYSICAL EXAMINATION: GENERAL: The patient is awake, alert, oriented, appropriate, very pleasant demeanor HEENT: Shows normocephalic, atraumatic. Extraocular movements are intact and symmetrical. NECK: Shows anterior throat supple without palpable lymphadenopathy noted. Swallow reflex symmetrical. CHEST: Shows normal on inspection. Breath sounds are clear bilaterally, distant but no rales or rhonchi auscultated.. HEART: Shows S1, S2 clear. No murmurs auscultated. ABDOMEN: Soft, nontender, nondistended. No palpable organomegaly is noted. No rebound or guarding demonstrated. BACK: Shows spine grossly in the midline. Normal-appearing cervical lordotic curvature. There is slightly increased thoracic kyphosis, some minor flattening of the lumbar lordotic curvature. Lumbar paraspinous muscles show symmetrical on inspection, on palpation shows some moderate tenderness diffusely throughout the upper, middle and lower distribution of the paraspinous muscles without specific trigger points, without radiation of pain. The patient has good rota tional motion of the lumbar spine, both laterally as well as extension and flexion without significant difficulty. No tenderness over the spinous processes, sacrum or sacroiliac regions. EXTREMITIES: Lower extremities show deep tendon reflexes 1+ in the patellar and tendo calcaneus tendons. Motor exam is 4 on a scale of 5 with right dorsiflexion, extension, quadriceps and hamstring flexion and 5/5 on the left. Peripheral pulses are 1+ posterior tibial. No peripheral edema is noted bilaterally. Lower extremities are warm and dry. SKIN: Shows warm and dry, good turgor. No edema. No sores, rashes or bruising throughout. Procedure: Procedure: Options were discussed with the patient. Patient chart was reviewed as her current medication regimen updated current review of systems updated today as well. We will proceed with a second in the series lumbar epidural steroid injection stable fluoroscopic guidance. Risks were discussed including but not limited to: Bleeding, infection, possibility of epidural hematoma and subsequent neurological compromise, dural puncture, headaches, spinal cord and/or nerve damage, side effects of steroid medication, and poor results regarding pain control. Patient understands and wished to proceed. Patient will return to the clinic in approximate 2 weeks for follow-up, was counseled as to return appointment activity level and side effects to be aware of. Medication Injected: Med Injected: Procedure is lumbar epidural steroid injection under local anesthetic using sterile prep and drape at the L5-S1 level using C-arm fluoroscopic guidance in both AP and lateral views medications injected is 120 mg Depo-Medrol +10mL preservative-free normal saline and 2 mL contrast- condition at discharge is stable patient tolerated procedure well had no complications. Condition at Discharge: Condition at Discharge: Condition at discharge is stable, patient tolerated the procedure well and had no complications. KIARRA RODRÍGUEZ MD Jan 26, 2021 10:42
--- NOTE | 2021-01-26 10:43 | PDOC4 ---
PROCEDURE Procedure Patient was consented for lumbar epidural steroid injection. Risks were dis cussed including but not limited to: Bleeding, infection, possibility of epidural hematoma and subsequent neurological compromise, dural puncture, headaches, spinal cord and/or nerve damage, side effects of steroid medication, and poor results regarding pain control. Patient understands and wished to proceed. Procedure is lumbar epidural steroid injection under local anesthetic using sterile prep and drape at the L5-S1 level using C-arm fluoroscopic guidance in both AP and lateral views medications injected is 120 mg Depo-Medrol +10mL preservative-free normal saline and 2 mL contrast- condition at discharge is stable patient tolerated procedure well had no complications. KIARRA RODRÍGUEZ MD Jan 26, 2021 10:43
== END | disposition home or self-care (01) ==
LOC: PNCL 09:48
PROVIDERS: ATTEND Anesthesiology
DX: M51.16 Intervertebral disc disorders with radiculopathy, lumbar region (principal); M48.061 Spinal stenosis, lumbar region without neurogenic claudication; M96.1 Postlaminectomy syndrome, not elsewhere classified; E78.00 Pure hypercholesterolemia, unspecified; E66.9 Obesity, unspecified; K21.9 Gastro-esophageal reflux disease without esophagitis; J45.909 Unspecified asthma, uncomplicated; Z85.3 Personal history of malignant neoplasm of breast; Z98.51 Tubal ligation status; Z90.710 Acquired absence of both cervix and uterus; Z98.890 Other specified postprocedural states; Z79.899 Other long term (current) drug therapy; Z88.5 Allergy status to narcotic agent; Z80.3 Family history of malignant neoplasm of breast; Z82.49 Family history of ischemic heart disease and other diseases of the circulatory system
CPT/HCPCS: 62323; J1030; J1040; Q9965

== ENCOUNTER 2021-05-06 19:47 | Inpatient (IN) | payer MEDICARE ==
[~2021-05-06] VITALS: Ht 172.7 cm; Wt 66.3 kg
[~2021-05-06 19:47] MED LIST changes: -IOHEXOL 180 MG/ML 10 ML VIAL. ONE; -methylPREDNISolone ACETATE 40 MG/ML VIAL. ONE; -methylPREDNISolone ACETATE 80 MG/ML VIAL. ONE
[2021-05-06] MEDS ORDERED: IV NORMAL SALINE 1000ML BAG 1,000 ML IV SCH (20:00)
--- NOTE | 2021-05-06 20:03 | PHYS DOC ---
Past Medical History Past Medical History: Anemia, Cancer, Diverticulitis, GERD Additional Past Medical Histor: thrombocytosis, BREAST CANCER Past Surgical History: Cholecystectomy, Hysterectomy, Other Additional Past Surgical Histo: colon resection, THYROIDECTOMY, L MASTECTOMY, LAMINECTOMY Smoking Status: Never Smoker Alcohol Use: None Drug Use: None General Adult EDM: Chief Complaint: ABDOMINAL PAIN HPI: HPI: 81-year-old female with a history of anemia, diverticulitis presents to the emergency department complaining of abdominal pain in the middle of her abdomen that radiates towards the back for the last 2 days worsening today. She reports that her pain is similar to her diverticulitis pain but she states that she has never had the pain this bad before. She denies any sudden onset pain, trauma associated with the pain, stool changes, diarrhea. The patient denies nausea, vomiting, fever, chills, chest pain, shortness of breath, urinary symptoms, cough, recent trauma, or any other complaints. Review of Systems: Review of Systems: ROS otherwise negative except for what was mentioned in HPI Heart Score: C/O Chest Pain: No Allergies: Allergies: Allergies Coded Allergies Type Severity Reaction Last Updated Verified codeine Adverse Reaction Intermediate Palpitations 01/31/19 Yes Physical Exam: PE: Constitutional: No acute distress, non-toxic appearance. HENT: Atraumatic, bilateral external ears normal, nose normal. Eyes: PERRLA, EOMI, conjunctiva normal, no discharge. Neck: Normal range of motion, supple, no stridor. Cardiovascular: Heart rate regular rhythm. 2+ radial pulses Lungs & Thorax: No respiratory distress, symmetrical expansion. Bilateral breath sounds clear to auscultation Abdomen: Soft, mid abdominal tenderness to palpation. Skin: Warm, dry. Extremities: No tenderness, no cyanosis, ROM intact, no edema. Neurologic: Alert and oriented X 3, normal motor function, normal sensory function, no focal deficits noted. GCS 15. Psychologic: Affect normal, judgment normal, mood normal. Current Patient Data: Vital Signs: Vital Signs Date Time Temp Pulse Resp B/P (MAP) Pulse Ox O2 Delivery O2 Flow Rate FiO2 05/06/21 20:15 77 18 184/80 (114) 99 Room Air 05/06/21 20:14 22 99 Room Air 05/06/21 19:50 98.4 75 22 178/76 (110) 98 98.4 EKG: EK: Normal sinus rhythm rate of 70, no ischemic ST-T wave changes, no ST elevation,, no ectopic beats, normal axis, normal TN, QRS, and QTc intervals. Impression: Normal EKG. interpreted by meJonathan D.O. Radiology/Procedures: Radiology/Procedures: PROCEDURE: CT ANGIOGRAPHY ABD AND PELVIS Exam: CT of abdomen and pelvis without and with contrast INDICATION: Abdominal pain, history of diverticulitis TECHNIQUE: Sequential axial images through the abdomen and pelvis obtained before and after the administration of 86 mL of Isovue-370 IV contrast. Sagittal and coronal reformatted images were reconstructed from the axial data and reviewed. Exposure: One or more of the following in the visualized dose reduction techniques were utilized for this examination: 1. Automated exposure control 2. Adjustment of the MA and/or KV according to patient size 3. Use of iterative of reconstructive technique Comparisons: 09/17/2018 FINDINGS: Heart size is normal. No pericardial effusion. Visualized lung bases are clear. No pleural effusion. Liver, pancreas and adrenals are unremarkable. Gallbladder is absent. Spleen is enlarged measuring up to 15.3 cm in long axis. No perinephric inflammation or hydronephrosis. No renal or ureteral calculi. There is a cystic lesion at the mid right kidney which measures 6.4 cm in diameter, representing simple cysts. Bladder is decompressed not well evaluated. Uterus is absent. No abnormal adnexal mass. Large and small bowel are unremarkable. Appendix is normal. No free intra-abdomi nal air or fluid. No obstruction. Abdominal aorta has a normal course and caliber. Abdominal vasculature is patent. No enlarged intra-abdominal lymph nodes are identified. No suspicious osseous lesions or acute fractures. IMPRESSION: 1. Normal appearance of the abdominal aorta without evidence for dissection, aneurysm or intramural hematoma. 2. Splenomegaly 3. No acute process identified within the abdomen or pelvis. Electronically signed by: Deonna Blue MD (05/06/2021 9:26 PM) Course & Med Decision Making: Course & Med Decision Making My Orders - JONATHAN SWANSON DO Procedure Category Date Status Time Vital Signs Monitoring ER 05/06/21 Transmitted 19:57 Blood Pressure ER 05/06/21 Transmitted Monitoring 19:57 Cardiac Monitoring ER 05/06/21 Transmitted 19:57 Cbc W Autodiff LAB 05/06/21 Complete 19:57 Ua, Cult If Indicated LAB 05/06/21 Complete 19:57 Lipase LAB 05/06/21 Complete 19:57 Comprehensive LAB 05/06/21 Complete Metabolic Panel 19:57 12 Lead Ekg EKG 05/06/21 Logged 19:57 Iv Normal Saline PHA 05/06/21 Complete 1000ml Bag (Iv Sodium 20:00 Fentanyl Pf Vial PHA 05/06/21 Complete (Fentanyl 2ml Vial) 20:15 Ondansetron Pf PHA 05/06/21 Complete (Zofran) 20:[address] 05/06/21 Resulted And Pelvis 19:57 Manual Differential LAB 05/06/21 Complete 20:00 Iohexol 350 Mg/Ml PHA 05/06/21 Complete (Omnipaque 350 Mg/Ml) 21:00 Contrast Given -- PHA 05/06/21 In Process Info Only (Contrast Gi 20:45 Morphine Sulfate PHA 05/06/21 Complete (Morphine Sulfate) 22:30 Urine Culture TATUM 05/06/21 In Process 22:40 Er Bridge Order ADT 05/06/21 Transmitted 23:05 Code Status CODE 05/06/21 Transmitted 23:05 Vital Signs, Per Unit KIERA 05/06/21 In Process Protocol 23:05 Regular DIET 05/07/21 Transmitted Breakfast Ambulate Ad Coby KIERA 05/06/21 In Process 23:05 Cbc W Autodiff LAB 05/07/21 Logged 06:00 Basic Metabolic Panel LAB 05/07/21 Logged 06:00 Ondansetron Pf PHA 05/06/21 In Process (Zofran) 23:15 Morphine Sulfate PHA 05/06/21 In Process (Morphine Sulfate) 23:15 Acetaminophen PHA 05/06/21 In Process (Tylenol) 23:15 The patient received several doses of narcotic pain medicine in the emergency department with difficult to control pain. Her CT and labs are as above significant for leukocytosis without acute cause on her CT scan of her abdomen. We will admit her to the hospital for observation and continued pain management. Departure Departure Impression: Primary Impression: Abdominal pain Disposition: ADMITTED INPATIENT Admitting Physician: GONSALO Street) Referrals: LUIS LI D.O. (PCP) JONATHAN SWANSON DO May 06, 2021 20:03
[2021-05-06 20:13] LABS: BASO % 0 % (0-3); EOS % 0 % (0-3); HEMATOCRIT 30.7 % (36.0-47.0); LYMPH # 0.9 x10^3/uL (1.0-4.8); LYMPH % 4 % (24-48); MEAN CORPUSCULAR HEMOGLOBIN 26 pg (25-35); MEAN CORPUSCULAR HGB CONC 33 g/dL (31-37); MEAN CORPUSCULAR VOLUME 81 fL (79-100); MONO # 0.7 x10^3/uL (0.0-1.1); MONO % 3 % (0-9); NEUT # 21.4 x10^3/uL (1.8-7.7); NEUT % 93 % (31-73); PLATELET COUNT 613 x10^3/uL (140-400); RED CELL DISTRIBUTION WIDTH 20.6 % (11.5-14.5)
[2021-05-06] MEDS ORDERED: fentaNYL PF VIAL 100 MCG/2 ML VIAL IVP ONE (20:15)
[2021-05-06] MEDS ORDERED: ONDANSETRON PF 4 MG/2 ML VIAL. IVP ONE (20:15)
[2021-05-06 20:25] LABS: GFR 64.6; POTASSIUM 3.9 mmol/L (3.5-5.1)
[2021-05-06 20:30] LABS: ALBUMIN 3.8 g/dL (3.4-5.0); TOTAL BILIRUBIN 0.4 mg/dL (0.2-1.0); TOTAL PROTEIN 7.7 g/dL (6.4-8.2)
[2021-05-06] MEDS ORDERED: CONTRAST GIVEN. MC PRN (20:45)
[2021-05-06] MEDS ORDERED: IOHEXOL 350 MG/ML 100 ML VIAL. IV ONE (21:00)
[2021-05-06 21:17] LABS: % BANDS 4 % (0-9); % LYMPHS 2 % (24-48); % MONOS 2 % (0-10); % SEGS 92 % (35-66); ANISOCYTOSIS MOD; PLT ESTIMATE INCREASED (ADEQUATE); POLYCHROMASIA SLIGHT
[2021-05-06 21:21] LABS: PAPPENHEIMER BODIES OCC
--- NOTE | 2021-05-06 21:29 | RAD ---
Exam: CT of abdomen and pelvis without and with contrast INDICATION: Abdominal pain, history of diverticulitis TECHNIQUE: Sequential axial images through the abdomen and pelvis obtained before and after the admin istration of 86 mL of Isovue-370 IV contrast. Sagittal and coronal reformatted images were reconstruc hung from the axial data and reviewed. Exposure: One or more of the following in the visualized dose reduction techniques were utilized for this examination: 1. Automated exposure control 2. Adjustment of the MA and/or KV according to patient size 3. Use of iterative of reconstructive technique Comparisons: 09/17/2018 FINDINGS: Heart size is normal. No pericardial effusion. Visualized lung bases are clear. No pleural effusion. Liver, pancreas and adrenals are unremarkable. Gallbladder is absent. Spleen is enlarged measuring up to 15.3 cm in long axis. No perinephric inflammation or hydronephrosis. No renal or ureteral calculi. There is a cystic lesion at the mid right kidney which measures 6.4 cm in diameter, representing simple cysts. Bladder is decompressed not well evaluated. Uterus is absent. No abnormal adnexal mass. Large and small bowel are unremarkable. Appendix is normal. No free intra-abdominal air or fluid. No obstruction. Abdominal aorta has a normal course and caliber. Abdominal vasculature is patent. No enlarged intra-abdominal lymph nodes are identified. No suspicious osseous lesions or acute fractures. IMPRESSION: 1. Normal appearance of the abdominal aorta without evidence for dissection, aneurysm or intramural hematoma. 2. Splenomegaly 3. No acute process identified within the abdomen or pelvis. Electronically signed by: Deonna Blue MD (05/06/2021 9:26 PM) [facility]
[2021-05-06 22:24] LABS: BILIRUBIN,URINE NEGATIVE (NEG); CLARITY,URINE CLEAR; COLOR,URINE YELLOW; NITRITE,URINE NEGATIVE (NEG); PROTEIN,URINE 30 mg/dL (NEG-TRACE); UROBILINOGEN,URINE 0.2 mg/dL (0.2 mg/dL)
[2021-05-06] MEDS ORDERED: MORPHINE SULFATE 4 MG/ML INJ. IVP ONE (22:30)
[2021-05-06 22:39] LABS: BACTERIA,URINE 0 /HPF (0-FEW)
[2021-05-06] MEDS ORDERED: ACETAMINOPHEN 325 MG TABLET. PO PRN (23:15)
[2021-05-06] MEDS ORDERED: ONDANSETRON PF 4 MG/2 ML VIAL. IVP PRN (23:15)
[2021-05-07] VITALS (8 sets, daily range): BP systolic 112–182; BP diastolic 51–77
--- NOTE | 2021-05-07 00:45 | NUR ---
Pt. just arrived from ED via bed w/ Abdominal pain. She is A/O x4 and will make needs known.
--- NOTE | 2021-05-07 02:18 | EKG ---
[facility] [address] [place] [address] Test Date: 2021-05-06 Test Time: 19:59:09 Pat Name: ELSA JONES Department: Room: Gender: F Offline Editor: : 1940 Requested By: JOSIAS SWANSON Order Number: [id number] Reading MD: Measurements Intervals [place] Rate: 73 P: 27 [place]: 152 QRS: 35 QRSD: 88 T: 53 QT: 412 QTc: 458 Interpretive Statements SINUS RHYTHM VENTRICULAR PREMATURE COMPLEX(ES) T ABNORMALITY IN ANTEROSEPTAL LEADS HIGH LATERAL LEADS ABNORMAL ECG RI6.01 No previous ECG available for comparison
[2021-05-07] MEDS: MORPHINE SULFATE 4 MG/ML INJ. IVP PRN ×3 (02:19→11:43)
[2021-05-07] MEDS ORDERED: ZINC50TA39 PO (05:35)
[2021-05-07] MEDS ORDERED: ANAGRELIDE HCL PO (05:35)
[2021-05-07] MEDS ORDERED: CYAN100072 PO (05:35)
[2021-05-07] MEDS ORDERED: MAGN500C10 PO (05:35)
[2021-05-07] MEDS ORDERED: GLUC-142 PO (05:35)
[2021-05-07] MEDS ORDERED: POLY15DR38 OP (05:35)
[2021-05-07] MEDS ORDERED: FOLI0.8T5 PO (05:35)
[2021-05-07] MEDS ORDERED: POTA10TA12 PO (05:52)
[2021-05-07 07:03] LABS: BASO # 0.1 x10^3/uL (0.0-0.2); BASO % 0 % (0-3); EOS % 0 % (0-3); HEMOGLOBIN 10.5 g/dL (12.0-15.5); LYMPH # 0.8 x10^3/uL (1.0-4.8); LYMPH % 3 % (24-48); MEAN CORPUSCULAR HEMOGLOBIN 27 pg (25-35); MEAN CORPUSCULAR HGB CONC 33 g/dL (31-37); MEAN CORPUSCULAR VOLUME 82 fL (79-100); MONO # 0.9 x10^3/uL (0.0-1.1); MONO % 3 % (0-9); NEUT # 28.4 x10^3/uL (1.8-7.7); NEUT % 94 % (31-73); PLATELET COUNT 604 x10^3/uL (140-400); RED BLOOD COUNT 3.92 x10^6/uL (3.50-5.40); RED CELL DISTRIBUTION WIDTH 20.8 % (11.5-14.5); WHITE BLOOD COUNT 30.3 x10^3/uL (4.0-11.0)
[2021-05-07 07:22] LABS: CALCIUM 8.7 mg/dL (8.5-10.1); CREATININE 0.9 mg/dL (0.6-1.0); GFR 72.9; POTASSIUM 4.1 mmol/L (3.5-5.1)
[2021-05-07] MEDS ORDERED: PIP/TAZO PER PHARMACY MC PRN (08:45)
[2021-05-07] MEDS ORDERED: traMADol 50 MG TABLET PO PRN (09:00)
[2021-05-07] MEDS: MAGNESIUM OXIDE 400 MG TABLET PO SCH (09:57)
[2021-05-07] MEDS: ZINC SULFATE 220 MG CAPSULE. PO SCH (09:57)
[2021-05-07] MEDS: POTASSIUM CHLORIDE 10 MEQ TABLET.ER. PO SCH (09:57)
[2021-05-07] MEDS: GABAPENTIN 300 MG CAPSULE. PO SCH ×3 (09:57→21:03)
[2021-05-07] MEDS: FOLIC ACID 1 MG TABLET. PO SCH (09:57)
[2021-05-07] MEDS: CALCIUM CARB/VIT D3 500/200 TABLET. PO SCH ×2 (09:58→18:13)
[2021-05-07] MEDS: CYANOCOBALAMIN (VITAMIN B-12) 1,000 MCG TABLET. PO SCH (09:58)
[2021-05-07] MEDS: APIXABAN 2.5 MG TABLET. PO SCH ×2 (09:58→21:03)
[2021-05-07] MEDS: PIPERACILLIN/TAZOBACTAM 3.375 GM in IV NORMAL SALINE 50ML 50 ML IV SCH ×2 (09:59→18:13)
[2021-05-07] MEDS: traMADol 50 MG TABLET PO PRN (15:06)
[2021-05-08] MEDS: PIPERACILLIN/TAZOBACTAM 3.375 GM in IV NORMAL SALINE 50ML 50 ML IV SCH ×5 (00:18→23:56)
[2021-05-08 03:28] VITALS: BP 167/71
[2021-05-08 07:00] VITALS: BP 152/93
--- NOTE | 2021-05-08 08:42 | PDOC1 ---
History and Physical Date of Service: DOS: DATE: 05/07/21 TIME: 08:37 Late entry for May 07 Chief Complaint: Problems: (1) Abdominal pain (2) Person under investigation for COVID-19 (3) Weakness Chief Complain: Abdominal pain back pain History of Present Illness: HPI: 81-year-old female with a history of anemia, diverticulitis presents to the emergency department complaining of abdominal pain in the middle of her abdomen that radiates towards the back for the last 2 days worsening today. She reports that her pain is similar to her diverticulitis pain but she states that she has never had the pain this bad before. She denies any sudden onset pain, trauma associated with the pain, stool changes, diarrhea. The patient denies nausea, vomiting, fever, chills, chest pain, shortness of breath, urinary symptoms, cough, recent trauma, or any other complaints. When patient was evaluated on the floor she was leaned over in her chair sleeping. When awoken she immediately kept saying how much pain she was in her abdomen and back. Requesting to try her home tramadol. Past Medical/Surgical History: PMH/PSH: Diverticulitis, anemia, GERD, breast cancer Allergies: Allergies: Coded Allergies: codeine (Verified Adverse Reaction, Intermediate, Palpitations, 01/31/19) Family History: Family History: No known Social History: Social History: Denies alcohol tobacco drug use Current Medications: Current Medications Current Medications Sodium Chloride 1,000 ml @ 1,000 mls/hr Q1H IV Last administered on 05/06/21at 20:10; Start 05/06/21 at 20:00; Stop 05/06/21 at 20:59; Status DC Fentanyl Citrate (Fentanyl 2ml Vial) 50 mcg 1X ONCE IVP Last administered on 05/06/21at 20:14; Start 05/06/21 at 20:15; Stop 05/06/21 at 20:16; Status DC Ondansetron HCl (Zofran) 4 mg 1X ONCE IVP Last administered on 05/06/21at 20:12; Start 05/06/21 at 20:15; Stop 05/06/21 at 20:16; Status DC Iohexol (Omnipaque 350 Mg/ml) 100 ml 1X ONCE IV Last administered on 05/06/21at 21:19; Start 05/06/21 at 21:00; Stop 05/06/21 at 21:01; Status DC Info (CONTRAST GIVEN -- Rx MONITORING) 1 each PRN DAILY PRN MC SEE COMMENTS; Start 05/06/21 at 20:45; Stop 05/08/21 at 20:44 Morphine Sulfate (Morphine Sulfate) 4 mg 1X ONCE IVP Last administered on 05/06/21at 22:26; Start 05/06/21 at 22:30; Stop 05/06/21 at 22:31; Status DC Ondansetron HCl (Zofran) 4 mg PRN Q8HRS PRN IVP NAUSEA/VOMITING 1ST CHOICE Last administered on 05/07/21at 02:18; Start 05/06/21 at 23:15; Stop 05/07/21 at 23:14; Status DC Morphine Sulfate (Morphine Sulfate) 4 mg PRN Q2HR PRN IVP SEVERE PAIN 7-10 Last administered on 05/07/21at 11:43; Start 05/06/21 at 23:15; Stop 05/07/21 at 23:14; Status DC Acetaminophen (Tylenol) 650 mg PRN Q4HRS PRN PO FEVER > 100.3'F; Start 05/06/21 at 23:15; Stop 05/07/21 at 23:14; Status DC Piperacillin Sod/ Tazobactam Sod (Zosyn Per Pharmacy) 1 each PRN DAILY PRN MC SEE COMMENTS; Start 05/07/21 at 08:45 Piperacillin Sod/ Tazobactam Sod 3.375 gm/Sodium Chloride 50 ml @ 100 mls/hr Q6HRS IV Last administered on 05/08/21at 05:44; Start 05/07/21 at 10:00 Apixaban (Eliquis) 2.5 mg BID PO Last administered on 05/07/21at 21:03; Start 05/07/21 at 09:00 Cyanocobalamin (Vitamin B-12) 1,000 mcg DAILY PO Last administered on 05/07/21at 09:58; Start 05/07/21 at 09:00 Potassium Chloride (Klor-Con) 10 meq DAILY PO Last administered on 05/07/21at 09:57; Start 05/07/21 at 09:00 Tramadol HCl (Ultram) 50 mg PRN Q6HRS PRN PO PAIN Last administered on 05/07/21at 09:58; Start 05/07/21 at 09:00; Stop 05/07/21 at 15:02; Status DC Calcium/Vitamin D (Oscal D 500mg/ 200uts) 1 tab BIDWMEALS PO Last administered on 05/07/21at 18:13; Start 05/07/21 at 09:00 Folic Acid (Folic Acid) 1 mg DAILY PO Last administered on 05/07/21at 09:57; Start 05/07/21 at 09:00 Gabapentin (Neurontin) 600 mg TID PO Last administered on 05/07/21at 21:03; Start 05/07/21 at 09:00 Magnesium Oxide (Magnesium Oxide) 400 mg DAILY PO Last administered on 05/07/21 09:57; Start 05/07/21 at 09:00 Zinc Sulfate (Orazinc) 220 mg DAILY PO Last administered on 05/07/21at 09:57; Start 05/07/21 at 09:00 Tramadol HCl (Ultram) 100 mg PRN Q6HRS PRN PO PAIN Last administered on 05/07/21at 15:06; Start 05/07/21 at 15:15 Active Scripts Active Reported Klor-Con 10 (Potassium Chloride) 10 Meq Tablet.er 1 Tab PO DAILY 30 Days Blink Tears (Polyethylene Glycol 400) 15 Ml Drops 15 Ml OP PRN PRN Osteo Bi-Flex Tablet (Glucosamine/D3/Boswellia Nicole) 1 Each Tablet 1 Each PO DAILY B-12 (Cyanocobalamin (Vitamin B-12)) 1,000 Mcg Tablet 1 Tab PO DAILY 30 Days Magnesium (Magnesium Oxide) 500 Mg Capsule 500 Mg PO DAILY Zinc 50 Mg Tablet 1 Tab PO DAILY 30 Days Folic Acid 0.8 Mg Tablet 0.8 Mg PO DAILY Anagrelide HCl 0.5 Mg Capsule 1 Cap PO BID 30 Days Tramadol Hcl 50 Mg Tablet 50 Mg PO Q6HRS PRN Eliquis (Apixaban) 5 Mg Tablet 2.5 Mg PO BID Gabapentin 600 Mg Tablet 600 Mg PO TID Calcium + Vitamin D Tablet (Calcium Carbonate/Vitamin D3) 1 Each Tablet 600 Mg PO BID ROS: Review of Systems Review of System Negative unless noted in HPI Physical Exam: Vital Signs: Vital Signs Date Time Temp Pulse Resp B/P (MAP) Pulse Ox O2 Delivery O2 Flow Rate FiO2 05/08/21 07:00 99.2 71 16 152/93 (112) 100 Room Air 99.2 Physcial Exam: GEN: Patient is leaning over sleeping however when awoken says she is in a lot of distress HEENT: Normal cephalic, atraumatic, external auditory canals are patent EYES: Extraocular muscles are intact, pupil are equally round and reactive to light and accommodation MUSCULOSKELETAL: Well developed , well nourished, good range of motion ENDOCRINE: No thyromegaly was palpated LYMPHATICS: No cervical chain or axillary nodes were noted HEMATOPOIETIC: No bruising NECK: Supple, no JVD, no thyromegaly was noted LUNGS: Clear to auscultation in all lung tavarez without rhonchi or wheezing HEART: RRR, S!, S2 present. Peripheral pulses intact, no obvious murmurs noted ABDOMEN: Diffusely tender particularly in suprapubic area EXTREMITIES: Without clubbing, cyanosis, or edema. Pedal pulses intact. Negative Homans sign NEUROLOGIC: Normal speech and tone. A&O x 3, moves all extremities, no obvious focal deficits PSYCHIATRIC: Normal affect, normal mood. Stable SKIN: No ulcerations or rashes, good skin turgor, no jaundice VASCULAR: Good capillary refill, neurovascular bundle appears to be intact Labs: Labs: Laboratory Tests Test 05/06/21 20:00 05/06/21 22:08 05/07/21 06:00 White Blood Count 23.0 x10^3/uL (4.0-11.0) 30.3 x10^3/uL (4.0-11.0) Red Blood Count 3.80 x10^6/uL (3.50-5.40) 3.92 x10^6/uL (3.50-5.40) Hemoglobin 10.0 g/dL (12.0-15.5) 10.5 g/dL (12.0-15.5) Hematocrit 30.7 % (36.0-47.0) 32.0 % (36.0-47.0) Mean Corpuscular Volume 81 fL (79-100) 82 fL (79-100) Mean Corpuscular Hemoglobin 26 pg (25-35) 27 pg (25-35) Mean Corpuscular Hemoglobin Concent 33 g/dL (31-37) 33 g/dL (31-37) Red Cell Distribution Width 20.6 % (11.5-14.5) 20.8 % (11.5-14.5) Platelet Count 613 x10^3/uL (140-400) 604 x10^3/uL (140-400) Neutrophils (%) (Auto) 93 % (31-73) 94 % (31-73) Lymphocytes (%) (Auto) 4 % (24-48) 3 % (24-48) Monocytes (%) (Auto) 3 % (0-9) 3 % (0-9) Eosinophils (%) (Auto) 0 % (0-3) 0 % (0-3) Basophils (%) (Auto) 0 % (0-3) 0 % (0-3) Neutrophils # (Auto) 21.4 x10^3/uL (1.8-7.7) 28.4 x10^3/uL (1.8-7.7) Lymphocytes # (Auto) 0.9 x10^3/uL (1.0-4.8) 0.8 x10^3/uL (1.0-4.8) Monocytes # (Auto) 0.7 x10^3/uL (0.0-1.1) 0.9 x10^3/uL (0.0-1.1) Eosinophils # (Auto) 0.0 x10^3/uL (0.0-0.7) 0.0 x10^3/uL (0.0-0.7) Basophils # (Auto) 0.0 x10^3/uL (0.0-0.2) 0.1 x10^3/uL (0.0-0.2) Segmented Neutrophils % 92 % (35-66) Band Neutrophils % 4 % (0-9) Lymphocytes % 2 % (24-48) Monocytes % 2 % (0-10) Platelet Estimate Increased (ADEQUATE) Large Platelets Mod Polychromasia Slight Basophilic Stippling Present Anisocytosis Mod Pappenheimer Bodies Occ Sodium Level 137 mmol/L (136-145) 137 mmol/L (136-145) Potassium Level 3.9 mmol/L (3.5-5.1) 4.1 mmol/L (3.5-5.1) Chloride Level 100 mmol/L (98-107) 99 mmol/L (98-107) Carbon Dioxide Level 26 mmol/L (21-32) 27 mmol/L (21-32) Anion Gap 11 (6-14) 11 (6-14) Blood Urea Nitrogen 11 mg/dL (7-20) 10 mg/dL (7-20) Creatinine 1.0 mg/dL (0.6-1.0) 0.9 mg/dL (0.6-1.0) Estimated GFR (Cockcroft-Gault) 64.6 72.9 BUN/Creatinine Ratio 11 (6-20) Glucose Level 176 mg/dL (70-99) 130 mg/dL (70-99) Calcium Level 9.0 mg/dL (8.5-10.1) 8.7 mg/dL (8.5-10.1) Total Bilirubin 0.4 mg/dL (0.2-1.0) Aspartate Amino Transf (AST/SGOT) 15 U/L (15-37) Alanine Aminotransferase (ALT/SGPT) 24 U/L (14-59) Alkaline Phosphatase 68 U/L (46-116) Total Protein 7.7 g/dL (6.4-8.2) Albumin 3.8 g/dL (3.4-5.0) Albumin/Globulin Ratio 1.0 (1.0-1.7) Lipase 42 U/L (73-393) Urine Collection Type Unknown Urine Color Yellow Urine Clarity Clear Urine pH 7.0 (<5.0-8.0) Urine Specific [place] >=1.030 (1.000-1.030) Urine Protein 30 mg/dL (NEG-TRACE) Urine Glucose (UA) Negative mg/dL (NEG) Urine Ketones (Stick) Negative mg/dL (NEG) Urine Blood Negative (NEG) Urine Nitrite Negative (NEG) Urine Bilirubin Negative (NEG) Urine Urobilinogen Dipstick 0.2 mg/dL (0.2 mg/dL) Urine Leukocyte Esterase Negative (NEG) Urine RBC 3-5 /HPF (0-2) Urine WBC 5-10 /HPF (0-4) Urine Squamous Epithelial Cells Few /LPF Urine Bacteria 0 /HPF (0-FEW) Assessment/Plan Assessment/Plan Abdominal pain, weakness, PUI, history of diverticulitis, possible UTI -*Admit to hospitalist -No apparent cause right now to patient's abdominal pain -Will place on Zosyn to cover for any intra-abdominal pathology and possible urinary tract infection -Pain control with home tramadol -Home medications otherwise resumed as indicated -As needed symptomatic treatment -Diet as tolerated Justifications for Admission Other Justification BROOKLYNN JAFFE MD May 08, 2021 08:42
[2021-05-08] MEDS: FOLIC ACID 1 MG TABLET. PO SCH (08:44)
[2021-05-08] MEDS: GABAPENTIN 300 MG CAPSULE. PO SCH ×3 (08:44→21:02)
[2021-05-08] MEDS: ZINC SULFATE 220 MG CAPSULE. PO SCH (08:44)
[2021-05-08] MEDS: CYANOCOBALAMIN (VITAMIN B-12) 1,000 MCG TABLET. PO SCH (08:44)
[2021-05-08] MEDS: CALCIUM CARB/VIT D3 500/200 TABLET. PO SCH ×2 (08:44→17:03)
[2021-05-08] MEDS: MAGNESIUM OXIDE 400 MG TABLET PO SCH (08:44)
[2021-05-08] MEDS: APIXABAN 2.5 MG TABLET. PO SCH ×2 (08:44→21:02)
[2021-05-08] MEDS: POTASSIUM CHLORIDE 10 MEQ TABLET.ER. PO SCH (08:46)
[2021-05-08] MEDS: traMADol 50 MG TABLET PO PRN ×2 (08:46→17:04)
[2021-05-08 11:00] VITALS: BP 167/75
--- NOTE | 2021-05-08 14:48 | PDOC ---
[facility] [facility] PROGRESS NOTE Date of Service DOS: DATE: 05/08/21 TIME: 14:45 Chief Complaint Chief Complaint Abdominal pain History of Present Illness History of Present Illness 81-year-old female with a history of anemia, diverticulitis presents to the emergency department complaining of abdominal pain in the middle of her abdomen that radiates towards the back for the last 2 days worsening today. She reports that her pain is similar to her diverticulitis pain but she states that she has never had the pain this bad before. She denies any sudden onset pain, trauma associated with the pain, stool changes, diarrhea. The patient denies nausea, vomiting, fever, chills, chest pain, shortness of breath, urinary symptoms, cough, recent trauma, or any other complaints. When patient was evaluated on the floor she was leaned over in her chair sleeping. When awoken she immediately kept saying how much pain she was in her abdomen and back. Requesting to try her home tramadol. 05/08 Patient evaluated at bedside, continues ongoing back pain and abdominal pain. No clear cause of either. CT scan was normal. Continuing work-up. PT OT ordered due to her back pain she may need placement. I spent 20 minutes discussing advance care planning with this patient Vitals/I&O Vitals/I&O: Vital Signs Date Time Temp Pulse Resp B/P (MAP) Pulse Ox O2 Delivery O2 Flow Rate FiO2 05/08/21 11:00 98.5 67 16 167/75 (105) 100 Room Air 98.5 I & O 05/07/21 05/07/21 05/08/21 15:00 23:00 07:00 Output Total 100 ml Balance -100 ml Physical Exam General: Alert, Oriented X3, Cooperative Heart: Regular rate, Normal S1, Normal S2 Lungs: Clear Abdomen: Other (Tender throughout) Extremities: No edema, Normal pulses Skin: No significant lesion Review of Systems Review of Systems: Negative unless above Assessment and Plan Assessmemt and Plan Problems Medical Problems: (1) Abdominal pain Status: Acute Assessment/Plan Abdominal pain, weakness, PUI, history of diverticulitis, possible UTI -*Admit to hospitalist -No apparent cause right now to patient's abdominal pain, UA negative -Will place on Zosyn to cover for any intra-abdominal pathology -Pain control with home tramadol -Home medications otherwise resumed as indicated -As needed symptomatic treatment -Diet as tolerated Comment Review of Relevant I have reviewed the following items vandana (where applicable) has been applied. Medications: Current Medications Medications (Trade) Dose Ordered Sig/Abbie Route PRN Reason Start Time Stop Time Status Last Admin Dose Admin Tramadol HCl (Ultram) 100 mg PRN Q6HRS PRN PO PAIN 05/07/21 15:15 05/08/21 08:46 Justifications for Admission Other Justification BROOKLYNN JAFFE MD May 08, 2021 14:47
[2021-05-08 15:00] VITALS: BP 134/76
[2021-05-08 19:00] VITALS: BP 142/68
[2021-05-08] MEDS: LACTOBACILLUS RHAMNOSUS GG 1 CAPSULE. PO SCH (21:02)
[2021-05-08 23:00] VITALS: BP 137/56
[2021-05-09 03:43] VITALS: BP 117/55
[2021-05-09] MEDS: PIPERACILLIN/TAZOBACTAM 3.375 GM in IV NORMAL SALINE 50ML 50 ML IV SCH ×2 (05:53→11:56)
[2021-05-09 07:00] VITALS: BP 111/54
[2021-05-09] MEDS: CYANOCOBALAMIN (VITAMIN B-12) 1,000 MCG TABLET. PO SCH (08:26)
[2021-05-09] MEDS: FOLIC ACID 1 MG TABLET. PO SCH (08:26)
[2021-05-09] MEDS: ZINC SULFATE 220 MG CAPSULE. PO SCH (08:26)
[2021-05-09] MEDS: CALCIUM CARB/VIT D3 500/200 TABLET. PO SCH ×2 (08:26→16:01)
[2021-05-09] MEDS: APIXABAN 2.5 MG TABLET. PO SCH ×2 (08:27→21:37)
[2021-05-09] MEDS: LACTOBACILLUS RHAMNOSUS GG 1 CAPSULE. PO SCH ×2 (08:27→21:37)
[2021-05-09] MEDS: POTASSIUM CHLORIDE 10 MEQ TABLET.ER. PO SCH (08:27)
[2021-05-09] MEDS: MAGNESIUM OXIDE 400 MG TABLET PO SCH (08:27)
[2021-05-09] MEDS: GABAPENTIN 300 MG CAPSULE. PO SCH ×3 (08:27→21:37)
[2021-05-09 11:00] VITALS: BP 103/57
--- NOTE | 2021-05-09 11:08 | NUR ---
SW following. Discussed with RN, pt from home, room air, regular diet. Pt feels better, IV zosyn. PT/OT today. SW will continue to follow.
--- NOTE | 2021-05-09 12:11 | PDOC ---
[facility] [facility] PROGRESS NOTE Date of Service DOS: DATE: 05/09/21 TIME: 12:09 Chief Complaint Chief Complaint Abdominal pain - resolving diverticulitis Leukocytosis - possibly sepsis from diverticulitis. If she has diarrhea will check c. difficile Anemia - likely of chronic disease Ho breast Cancer - in remission GERD - on ppi Thrombocytosis - likely reactive FEN - ADAT PPX - eliquis FULL CODE Dispo - inpatient History of Present Illness History of Present Illness Ms Subramanian is an 81-year-old female with a history of anemia, diverticulitis presents to the emergency department complaining of abdominal pain in the middle of her abdomen that radiates towards the back for the last 2 days worsening today. She reports that her pain is similar to her diverticulitis pain but she states that she has never had the pain this bad before. She denies any sudden onset pain, trauma associated with the pain, stool changes, diarrhea. The patient denies nausea, vomiting, fever, chills, chest pain, shortness of breath, urinary symptoms, cough, recent trauma, or any other complaints. When patient was evaluated on the floor she was leaned over in her chair sleeping. When awoken she immediately kept saying how much pain she was in her abdomen and back. Requesting to try her home tramadol. 05/08: Patient evaluated at bedside, continues ongoing back pain and abdominal pain. No clear cause of either. CT scan no vascular abnormalities. PT OT ordered due to weakness. Afebrile. Pain improved. CR up to 1.2, NA 134. Feeling weak when she gets up. WBC down to 20 K. Vitals/I&O Vitals/I&O: Vital Signs Date Time Temp Pulse Resp B/P (MAP) Pulse Ox O2 Delivery O2 Flow Rate FiO2 05/09/21 08:00 Room Air 05/09/21 07:00 97.7 87 17 111/54 (73) 99 97.7 I & O 05/08/21 05/08/21 05/09/21 15:00 23:00 07:00 Intake Total 50 ml Output Total 400 ml Balance 50 ml -400 ml Physical Exam General: Alert, Oriented X3, Cooperative Heart: Regular rate, Normal S1, Normal S2 Lungs: Clear Abdomen: Other Extremities: No edema, Normal pulses Skin: No significant lesion Assessment and Plan Assessmemt and Plan Problems Medical Problems: (1) Abdominal pain Status: Acute Comment Review of Relevant I have reviewed the following items vandana (where applicable) has been applied. Medications: Current Medications Medications (Trade) Dose Ordered Sig/Abbie Route PRN Reason Start Time Stop Time Status Last Admin Dose Admin Lactobacillus Rhamnosus (Culturelle) 1 cap BID PO 05/08/21 21:00 05/09/21 08:27 Justifications for Admission Other Justification BROOKLYNN NMA MD May 09, 2021 12:11
[2021-05-09 13:10] LABS: BASO # 0.2 x10^3/uL (0.0-0.2); BASO % 1 % (0-3); EOS # 0.1 x10^3/uL (0.0-0.7); EOS % 1 % (0-3); LYMPH # 1.7 x10^3/uL (1.0-4.8); LYMPH % 8 % (24-48); MEAN CORPUSCULAR HEMOGLOBIN 27 pg (25-35); MEAN CORPUSCULAR HGB CONC 32 g/dL (31-37); MEAN CORPUSCULAR VOLUME 84 fL (79-100); MONO # 0.8 x10^3/uL (0.0-1.1); MONO % 4 % (0-9); NEUT # 19.2 x10^3/uL (1.8-7.7); NEUT % 88 % (31-73); PLATELET COUNT 607 x10^3/uL (140-400); RED BLOOD COUNT 4.07 x10^6/uL (3.50-5.40); RED CELL DISTRIBUTION WIDTH 20.5 % (11.5-14.5); WHITE BLOOD COUNT 21.9 x10^3/uL (4.0-11.0)
[2021-05-09 13:23] LABS: ALBUMIN 3.4 g/dL (3.4-5.0); ALBUMIN/GLOBULIN RATIO 0.8 (1.0-1.7); CREATININE 1.2 mg/dL (0.6-1.0); GFR 52.3; POTASSIUM 4.2 mmol/L (3.5-5.1); TOTAL BILIRUBIN 0.6 mg/dL (0.2-1.0); TOTAL PROTEIN 7.6 g/dL (6.4-8.2)
[2021-05-09 15:00] VITALS: BP 106/54
[2021-05-09] MEDS: traMADol 50 MG TABLET PO PRN (16:01)
[2021-05-09 19:00] VITALS: BP 119/56
[2021-05-09] MEDS: POLYETHYLENE GLYCOL 3350 17 GM PACKET. PO SCH (21:36)
[2021-05-09 22:47] VITALS: BP 124/58
[2021-05-10 03:00] VITALS: BP 136/68
[2021-05-10 05:56] LABS: CALCIUM 8.5 mg/dL (8.5-10.1); GFR 64.6; POTASSIUM 4.3 mmol/L (3.5-5.1)
[2021-05-10 06:08] LABS: BASO # 0.2 x10^3/uL (0.0-0.2); BASO % 1 % (0-3); EOS # 0.1 x10^3/uL (0.0-0.7); EOS % 1 % (0-3); HEMATOCRIT 29.1 % (36.0-47.0); HEMOGLOBIN 9.6 g/dL (12.0-15.5); LYMPH # 1.5 x10^3/uL (1.0-4.8); LYMPH % 9 % (24-48); MEAN CORPUSCULAR HEMOGLOBIN 27 pg (25-35); MEAN CORPUSCULAR HGB CONC 33 g/dL (31-37); MEAN CORPUSCULAR VOLUME 82 fL (79-100); MONO # 0.1 x10^3/uL (0.0-1.1); MONO % 1 % (0-9); NEUT # 14.8 x10^3/uL (1.8-7.7); NEUT % 89 % (31-73); PLATELET COUNT 465 x10^3/uL (140-400); RED BLOOD COUNT 3.55 x10^6/uL (3.50-5.40); RED CELL DISTRIBUTION WIDTH 20.5 % (11.5-14.5); WHITE BLOOD COUNT 16.7 x10^3/uL (4.0-11.0)
[2021-05-10 07:00] VITALS: BP 103/52
[2021-05-10] MEDS: APIXABAN 2.5 MG TABLET. PO SCH (09:27)
[2021-05-10] MEDS: GABAPENTIN 300 MG CAPSULE. PO SCH ×2 (09:27→14:13)
[2021-05-10] MEDS: CYANOCOBALAMIN (VITAMIN B-12) 1,000 MCG TABLET. PO SCH (09:27)
[2021-05-10] MEDS: LACTOBACILLUS RHAMNOSUS GG 1 CAPSULE. PO SCH (09:28)
[2021-05-10] MEDS: MAGNESIUM OXIDE 400 MG TABLET PO SCH (09:28)
[2021-05-10] MEDS: ZINC SULFATE 220 MG CAPSULE. PO SCH (09:28)
[2021-05-10] MEDS: FOLIC ACID 1 MG TABLET. PO SCH (09:28)
[2021-05-10] MEDS: CALCIUM CARB/VIT D3 500/200 TABLET. PO SCH ×2 (09:28→17:44)
[2021-05-10] MEDS: POTASSIUM CHLORIDE 10 MEQ TABLET.ER. PO SCH (09:28)
[2021-05-10 11:00] VITALS: BP 117/66
[2021-05-10] MEDS: POLYETHYLENE GLYCOL 3350 17 GM PACKET. PO SCH (11:15)
--- NOTE | 2021-05-10 11:56 | PDOC ---
[facility] [facility] PROGRESS NOTE Date of Service DOS: DATE: 05/10/21 TIME: 11:55 Chief Complaint Chief Complaint Abdominal pain - resolving diverticulitis Leukocytosis - possibly sepsis from diverticulitis. If she has diarrhea will check c. difficile Anemia - likely of chronic disease Ho breast Cancer - in remission GERD - on ppi Thrombocytosis - likely reactive FEN - ADAT PPX - eliquis FULL CODE Dispo - inpatient History of Present Illness History of Present Illness Ms Subramanian is an 81-year-old female with a history of anemia, diverticulitis presents to the emergency department complaining of abdominal pain in the middle of her abdomen that radiates towards the back for the last 2 days worsening today. She reports that her pain is similar to her diverticulitis pain but she states that she has never had the pain this bad before. She denies any sudden onset pain, trauma associated with the pain, stool changes, diarrhea. The patient denies nausea, vomiting, fever, chills, chest pain, shortness of breath, urinary symptoms, cough, recent trauma, or any other complaints. When patient was evaluated on the floor she was leaned over in her chair sleeping. When awoken she immediately kept saying how much pain she was in her abdomen and back. Requesting to try her home tramadol. 05/08: Patient evaluated at bedside, continues ongoing back pain and abdominal pain. No clear cause of either. CT scan no vascular abnormalities. PT OT ordered due to weakness. 05/09: Afebrile. Pain improved. CR up to 1.2, NA 134. Feeling weak when she gets up. WBC down to 20 K. Creatinine improved to 1, WBC down to 16.7. COVID-19 negative. Feeling much stronger and able to ambulate with 2 wheeled walker. She prefers to try to go home with home health rather than go to acute rehab. She says she has plenty of family to check on her and would appreciate home health. Pain almost completely resolved with 3 days of IV antibiotics. Vitals/I&O Vitals/I&O: Vital Signs Date Time Temp Pulse Resp B/P (MAP) Pulse Ox O2 Delivery O2 Flow Rate FiO2 05/10/21 08:15 Room Air 05/10/21 07:00 98.4 78 17 103/52 (69) 99 98.4 I & O 05/09/21 05/09/21 05/10/21 15:00 23:00 07:00 Intake Total 50 ml Balance 50 ml Physical Exam General: Alert, Oriented X3, Cooperative Heart: Regular rate, Normal S1, Normal S2 Lungs: Clear Abdomen: Other Extremities: No edema, Normal pulses Skin: No significant lesion Labs Labs: Laboratory Tests Test 05/09/21 13:00 05/09/21 16:00 05/10/21 05:00 White Blood Count 21.9 x10^3/uL (4.0-11.0) 16.7 x10^3/uL (4.0-11.0) Red Blood Count 4.07 x10^6/uL (3.50-5.40) 3.55 x10^6/uL (3.50-5.40) Hemoglobin 11.0 g/dL (12.0-15.5) 9.6 g/dL (12.0-15.5) Hematocrit 34.0 % (36.0-47.0) 29.1 % (36.0-47.0) Mean Corpuscular Volume 84 fL (79-100) 82 fL (79-100) Mean Corpuscular Hemoglobin 27 pg (25-35) 27 pg (25-35) Mean Corpuscular Hemoglobin Concent 32 g/dL (31-37) 33 g/dL (31-37) Red Cell Distribution Width 20.5 % (11.5-14.5) 20.5 % (11.5-14.5) Platelet Count 607 x10^3/uL (140-400) 465 x10^3/uL (140-400) Neutrophils (%) (Auto) 88 % (31-73) 89 % (31-73) Lymphocytes (%) (Auto) 8 % (24-48) 9 % (24-48) Monocytes (%) (Auto) 4 % (0-9) 1 % (0-9) Eosinophils (%) (Auto) 1 % (0-3) 1 % (0-3) Basophils (%) (Auto) 1 % (0-3) 1 % (0-3) Neutrophils # (Auto) 19.2 x10^3/uL (1.8-7.7) 14.8 x10^3/uL (1.8-7.7) Lymphocytes # (Auto) 1.7 x10^3/uL (1.0-4.8) 1.5 x10^3/uL (1.0-4.8) Monocytes # (Auto) 0.8 x10^3/uL (0.0-1.1) 0.1 x10^3/uL (0.0-1.1) Eosinophils # (Auto) 0.1 x10^3/uL (0.0-0.7) 0.1 x10^3/uL (0.0-0.7) Basophils # (Auto) 0.2 x10^3/uL (0.0-0.2) 0.2 x10^3/uL (0.0-0.2) Sodium Level 134 mmol/L (136-145) 137 mmol/L (136-145) Potassium Level 4.2 mmol/L (3.5-5.1) 4.3 mmol/L (3.5-5.1) Chloride Level 99 mmol/L (98-107) 103 mmol/L (98-107) Carbon Dioxide Level 27 mmol/L (21-32) 29 mmol/L (21-32) Anion Gap 8 (6-14) 5 (6-14) Blood Urea Nitrogen 17 mg/dL (7-20) 19 mg/dL (7-20) Creatinine 1.2 mg/dL (0.6-1.0) 1.0 mg/dL (0.6-1.0) Estimated GFR (Cockcroft-Gault) 52.3 64.6 BUN/Creatinine Ratio 14 (6-20) Glucose Level 100 mg/dL (70-99) 89 mg/dL (70-99) Calcium Level 9.0 mg/dL (8.5-10.1) 8.5 mg/dL (8.5-10.1) Total Bilirubin 0.6 mg/dL (0.2-1.0) Aspartate Amino Transf (AST/SGOT) 6 U/L (15-37) Alanine Aminotransferase (ALT/SGPT) 13 U/L (14-59) Alkaline Phosphatase 74 U/L (46-116) Total Protein 7.6 g/dL (6.4-8.2) Albumin 3.4 g/dL (3.4-5.0) Albumin/Globulin Ratio 0.8 (1.0-1.7) SARS-CoV-2 RNA (LAKISHA) Negative (Negative) Assessment and Plan Assessmemt and Plan Problems Medical Problems: (1) Abdominal pain Status: Acute Comment Review of Relevant I have reviewed the following items vandana (where applicable) has been applied. Medications: Current Medications Medications (Trade) Dose Ordered Sig/Abbie Route PRN Reason Start Time Stop Time Status Last Admin Dose Admin Polyethylene Glycol (miraLAX PACKET) 17 gm DAILY PO 05/09/21 21:00 05/10/21 11:15 Justifications for Admission Other Justification BROOKLYNN NAM MD May 10, 2021 11:56
--- NOTE | 2021-05-10 12:43 | SNU/HH DC ---
DISCHARGE WITH HOME HEALTH DISCHARGE INFORMATION: Discharge Date: May 10, 2021 Final Diagnosis: Problems Medical Problems: (1) Abdominal pain Status: Acute Condition on Discharge: Stable CODE STATUS: Code Status: Full HOME HEALTH: Face to Face: I certify this patient is under my care and that I, or a nurse practitioner or physician's shop assistant working with me, had a face to face encounter that meets the physician face to face encounter requirements with this patient on 05/10/2021. Medical Complications: Other (Diverticulitis) Fpc For: Assess/Skilled Observatio, Medication Management, Pain Management RN For Eval/Treatment: Yes Physical Therapy For: Evalulation/Treatment Occupational Therapy For: Evaluation/Treatment Pt Meets Homebound Status: Extreme weakness w/ amb. POST DISCHARGE ORDERS: Activity Instructions for Disc: Bedrest today Weight Bearing Status after Di: As tolerated Bathing Instructions: Shower-keep dressing dry, No Tub Bath until see Wound/Incision Care: Keep wound/cast CDI CHECKS AFTER DISCHARGE: Checks after discharge: Check blood press - daily FOLLOW-UP: PCP to follow Home Health: Dr. Gillian Ingram Additional Instructions: Chaitanya RODRIGUEZ [address] [place] [address] P: [phone] F: [phone] TREATMENT/EQUIPMENT ORDERS: Adaptive Equipment Issued: Front wheeled walker CERTIFICATION STATEMENT: Certification Statement: Certification Statement: Based on the above finding, I certify that this patient is confined to the home and needs intermittent fci care, physical therapy and/or speech therapy, or continues to need occupational therapy.~ This patient is under my care, and I have initiated the establishment of the plan of care.~ This patient will be followed by myself or a community physician who will periodically review the plan of care. Home Meds Reported Medications Potassium Chloride (KLOR-CON 10) 10 Meq Tablet.er, 1 TAB PO DAILY for supplement for 30 Days, #30 TAB 0 Refills 05/07/21 Polyethylene Glycol 400 (Blink Tears) 15 Ml Drops, 15 ML OP PRN PRN for ., DROP 05/07/21 Glucosamine/D3/Boswellia Nicole (Osteo Bi-Flex Tablet) 1 Each Tablet, 1 EACH PO DAILY for supplement, TAB 05/07/21 Cyanocobalamin (Vitamin B-12) (B-12) 1,000 Mcg Tablet, 1 TAB PO DAILY for . for 30 Days, #30 TAB 0 Refills 05/07/21 Magnesium Oxide (MAGNESIUM) 500 Mg Capsule, 500 MG PO DAILY for supplement, CAP 05/07/21 Zinc (ZINC) 50 Mg Tablet, 1 TAB PO DAILY for . for 30 Days, #30 TAB 0 Refills 05/07/21 Folic Acid (FOLIC ACID) 0.8 Mg Tablet, 0.8 MG PO DAILY for SUPPLEMENT, TAB 05/07/21 Anagrelide HCl (Anagrelide HCl) 0.5 Mg Capsule, 1 CAP PO BID for . for 30 Days, #60 CAP 0 Refills 05/07/21 Tramadol Hcl (TRAMADOL HCL) 50 Mg Tablet, 50 MG PO Q6HRS PRN for PAIN, TAB 0 Refills 12/07/20 Apixaban (ELIQUIS) 5 Mg Tablet, 2.5 MG PO BID for heart, TAB 12/07/20 Gabapentin (GABAPENTIN) 600 Mg Tablet, 600 MG PO TID for NEUROGENIC PAIN, TAB 12/29/19 Calcium Carbonate/Vitamin D3 (CALCIUM + VITAMIN D TABLET) 1 Each Tablet, 600 MG PO BID 07/06/14 Discontinued Reported Medications Magnesium Oxide (MAGNESIUM) 400 Mg Capsule, 1 CAP PO DAILY 07/06/14 BROOKLYNN NAM MD May 10, 2021 12:43
--- NOTE | 2021-05-10 12:46 | PDOC3 ---
Discharge Summary Visit Information Date of Admission: May 08, 2021 Date of Discharge: May 10, 2021 Admitting Diagnosis: Intractable abdominal pain, diverticulitis Final Diagnosis Problems Medical Problems: (1) Abdominal pain Status: Acute Brief Hospital Course Allergies Allergies Coded Allergies Type Severity Reaction Last Updated Verified No Known Medication Allergies Allergy Unknown 05/09/21 Yes codeine Adverse Reaction Intermediate Palpitations 01/31/19 Yes Vital Signs Vital Signs Date Time Temp Pulse Resp B/P (MAP) Pulse Ox O2 Delivery O2 Flow Rate FiO2 05/10/21 08:15 Room Air 05/10/21 07:00 98.4 78 17 103/52 (69) 99 98.4 Lab Results Laboratory Tests Test 05/09/21 13:00 05/09/21 16:00 05/10/21 05:00 White Blood Count 21.9 x10^3/uL (4.0-11.0) 16.7 x10^3/uL (4.0-11.0) Red Blood Count 4.07 x10^6/uL (3.50-5.40) 3.55 x10^6/uL (3.50-5.40) Hemoglobin 11.0 g/dL (12.0-15.5) 9.6 g/dL (12.0-15.5) Hematocrit 34.0 % (36.0-47.0) 29.1 % (36.0-47.0) Mean Corpuscular Volume 84 fL (79-100) 82 fL (79-100) Mean Corpuscular Hemoglobin 27 pg (25-35) 27 pg (25-35) Mean Corpuscular Hemoglobin Concent 32 g/dL (31-37) 33 g/dL (31-37) Red Cell Distribution Width 20.5 % (11.5-14.5) 20.5 % (11.5-14.5) Platelet Count 607 x10^3/uL (140-400) 465 x10^3/uL (140-400) Neutrophils (%) (Auto) 88 % (31-73) 89 % (31-73) Lymphocytes (%) (Auto) 8 % (24-48) 9 % (24-48) Monocytes (%) (Auto) 4 % (0-9) 1 % (0-9) Eosinophils (%) (Auto) 1 % (0-3) 1 % (0-3) Basophils (%) (Auto) 1 % (0-3) 1 % (0-3) Neutrophils # (Auto) 19.2 x10^3/uL (1.8-7.7) 14.8 x10^3/uL (1.8-7.7) Lymphocytes # (Auto) 1.7 x10^3/uL (1.0-4.8) 1.5 x10^3/uL (1.0-4.8) Monocytes # (Auto) 0.8 x10^3/uL (0.0-1.1) 0.1 x10^3/uL (0.0-1.1) Eosinophils # (Auto) 0.1 x10^3/uL (0.0-0.7) 0.1 x10^3/uL (0.0-0.7) Basophils # (Auto) 0.2 x10^3/uL (0.0-0.2) 0.2 x10^3/uL (0.0-0.2) Sodium Level 134 mmol/L (136-145) 137 mmol/L (136-145) Potassium Level 4.2 mmol/L (3.5-5.1) 4.3 mmol/L (3.5-5.1) Chloride Level 99 mmol/L (98-107) 103 mmol/L (98-107) Carbon Dioxide Level 27 mmol/L (21-32) 29 mmol/L (21-32) Anion Gap 8 (6-14) 5 (6-14) Blood Urea Nitrogen 17 mg/dL (7-20) 19 mg/dL (7-20) Creatinine 1.2 mg/dL (0.6-1.0) 1.0 mg/dL (0.6-1.0) Estimated GFR (Cockcroft-Gault) 52.3 64.6 BUN/Creatinine Ratio 14 (6-20) Glucose Level 100 mg/dL (70-99) 89 mg/dL (70-99) Calcium Level 9.0 mg/dL (8.5-10.1) 8.5 mg/dL (8.5-10.1) Total Bilirubin 0.6 mg/dL (0.2-1.0) Aspartate Amino Transf (AST/SGOT) 6 U/L (15-37) Alanine Aminotransferase (ALT/SGPT) 13 U/L (14-59) Alkaline Phosphatase 74 U/L (46-116) Total Protein 7.6 g/dL (6.4-8.2) Albumin 3.4 g/dL (3.4-5.0) Albumin/Globulin Ratio 0.8 (1.0-1.7) SARS-CoV-2 RNA (LAKISHA) Negative (Negative) Laboratory Tests Test 05/09/21 13:00 05/09/21 16:00 05/10/21 05:00 White Blood Count 21.9 x10^3/uL (4.0-11.0) 16.7 x10^3/uL (4.0-11.0) Red Blood Count 4.07 x10^6/uL (3.50-5.40) 3.55 x10^6/uL (3.50-5.40) Hemoglobin 11.0 g/dL (12.0-15.5) 9.6 g/dL (12.0-15.5) Hematocrit 34.0 % (36.0-47.0) 29.1 % (36.0-47.0) Mean Corpuscular Volume 84 fL (79-100) 82 fL (79-100) Mean Corpuscular Hemoglobin 27 pg (25-35) 27 pg (25-35) Mean Corpuscular Hemoglobin Concent 32 g/dL (31-37) 33 g/dL (31-37) Red Cell Distribution Width 20.5 % (11.5-14.5) 20.5 % (11.5-14.5) Platelet Count 607 x10^3/uL (140-400) 465 x10^3/uL (140-400) Neutrophils (%) (Auto) 88 % (31-73) 89 % (31-73) Lymphocytes (%) (Auto) 8 % (24-48) 9 % (24-48) Monocytes (%) (Auto) 4 % (0-9) 1 % (0-9) Eosinophils (%) (Auto) 1 % (0-3) 1 % (0-3) Basophils (%) (Auto) 1 % (0-3) 1 % (0-3) Neutrophils # (Auto) 19.2 x10^3/uL (1.8-7.7) 14.8 x10^3/uL (1.8-7.7) Lymphocytes # (Auto) 1.7 x10^3/uL (1.0-4.8) 1.5 x10^3/uL (1.0-4.8) Monocytes # (Auto) 0.8 x10^3/uL (0.0-1.1) 0.1 x10^3/uL (0.0-1.1) Eosinophils # (Auto) 0.1 x10^3/uL (0.0-0.7) 0.1 x10^3/uL (0.0-0.7) Basophils # (Auto) 0.2 x10^3/uL (0.0-0.2) 0.2 x10^3/uL (0.0-0.2) Sodium Level 134 mmol/L (136-145) 137 mmol/L (136-145) Potassium Level 4.2 mmol/L (3.5-5.1) 4.3 mmol/L (3.5-5.1) Chloride Level 99 mmol/L (98-107) 103 mmol/L (98-107) Carbon Dioxide Level 27 mmol/L (21-32) 29 mmol/L (21-32) Anion Gap 8 (6-14) 5 (6-14) Blood Urea Nitrogen 17 mg/dL (7-20) 19 mg/dL (7-20) Creatinine 1.2 mg/dL (0.6-1.0) 1.0 mg/dL (0.6-1.0) Estimated GFR (Cockcroft-Gault) 52.3 64.6 BUN/Creatinine Ratio 14 (6-20) Glucose Level 100 mg/dL (70-99) 89 mg/dL (70-99) Calcium Level 9.0 mg/dL (8.5-10.1) 8.5 mg/dL (8.5-10.1) Total Bilirubin 0.6 mg/dL (0.2-1.0) Aspartate Amino Transf (AST/SGOT) 6 U/L (15-37) Alanine Aminotransferase (ALT/SGPT) 13 U/L (14-59) Alkaline Phosphatase 74 U/L (46-116) Total Protein 7.6 g/dL (6.4-8.2) Albumin 3.4 g/dL (3.4-5.0) Albumin/Globulin Ratio 0.8 (1.0-1.7) SARS-CoV-2 RNA (LAKISHA) Negative (Negative) Brief Hospital Course Ms Subramanian is an 81-year-old female with a history of anemia, diverticulitis presents to the emergency department complaining of abdominal pain in the middle of her abdomen that radiates towards the back for the last 2 days worsening today. She reports that her pain is similar to her diverticulitis pain but she states that she has never had the pain this bad before. She denies any sudden onset pain, trauma associated with the pain, stool changes, diarrhea. The patient denies nausea, vomiting, fever, chills, chest pain, shortness of breath, urinary symptoms, cough, recent trauma, or any other complaints. When patient was evaluated on the floor she was leaned over in her chair sleeping. When awoken she immediately kept saying how much pain she was in her abdomen and back. Requesting to try her home tramadol. 05/08: Patient evaluated at bedside, continues ongoing back pain and abdominal pain. No clear cause of either. CT scan no vascular abnormalities. PT OT ordered due to weakness. 05/09: Afebrile. Pain improved. CR up to 1.2, NA 134. Feeling weak when she gets up. WBC down to 20 K. Creatinine improved to 1, WBC down to 16.7. COVID-19 negative. Feeling much stronger and able to ambulate with 2 wheeled walker. She prefers to try to go home with home health rather than go to acute rehab. She says she has plenty of family to check on her and would appreciate home health. Pain almost completely resolved with 3 days of IV antibiotics. Problem list: Abdominal pain - resolving diverticulitis Leukocytosis - possibly sepsis from diverticulitis. If she has diarrhea will check c. difficile Anemia - likely of chronic disease Ho breast Cancer - in remission GERD - on ppi Thrombocytosis - likely reactive Greater than 30 minutes spent on d/c home with home health Discharge Information Condition at Discharge: Improved Follow Up: Weeks (1) Disposition/Orders: D/C to Home w/ HH Scheduled Anagrelide HCl (Anagrelide HCl) 0.5 Mg Capsule, 1 CAP PO BID for . for 30 Days, #60 Ref 0 (Reported) Entered as Reported by: PIERRE ALEJANDRO on 05/07/21534 Last Action: New Order on 05/07/21534 by PIERRE ALEJANDRO Apixaban (Eliquis) 5 Mg Tablet, 2.5 MG PO BID for heart, (Reported) Entered as Reported by: DENILSON CARRINGTON on 12/07/20 1148 Last Action: Continued on 05/07/21854 by STEF VILLEGAS Calcium Carbonate/Vitamin D3 (Calcium + Vitamin D Tablet) 1 Each Tablet, 600 MG PO BID, (Reported) Entered as Reported by: YONY PIPER on 07/06/14 0904 Last Action: Converted on 05/07/21854 by STEF VILLEGAS Cyanocobalamin (Vitamin B-12) (B-12) 1,000 Mcg Tablet, 1 TAB PO DAILY for . for 30 Days, #30 Ref 0 (Reported) Entered as Reported by: PIERRE ALEJANDRO on 05/07/21534 Last Action: Continued on 05/07/21854 by STEF VILLEGAS Folic Acid (Folic Acid) 0.8 Mg Tablet, 0.8 MG PO DAILY for SUPPLEMENT, (Re ported) Entered as Reported by: PIERRE ALEJANDRO on 05/07/21534 Last Action: Converted on 05/07/21854 by STEF VILLEGAS Gabapentin (Gabapentin) 600 Mg Tablet, 600 MG PO TID for NEUROGENIC PAIN, (Reported) Entered as Reported by: DENILSON CARRINGTON on 12/29/19 1201 Last Action: Converted on 05/07/21854 by STEF VILLEGAS Glucosamine/D3/Boswellia Nicole (Osteo Bi-Flex Tablet) 1 Each Tablet, 1 EACH PO DAILY for supplement, (Reported) Entered as Reported by: PIERRE ALEJANDRO on 05/07/21534 Last Action: New Order on 05/07/21534 by PIERRE ALEJANDRO Magnesium Oxide (Magnesium) 500 Mg Capsule, 500 MG PO DAILY for supplement, (Reported) Entered as Reported by: PIERRE ALEJANDRO on 05/07/21534 Last Action: Converted on 05/07/21854 by STEF VILLEGAS Potassium Chloride (Klor-Con 10) 10 Meq Tablet.er, 1 TAB PO DAILY for supplement for 30 Days, #30 Ref 0 (Reported) Entered as Reported by: PIERRE ALEJANDRO on 05/07/21551 Last Action: Continued on 05/07/21854 by STEF VILLEGAS Zinc (Zinc) 50 Mg Tablet, 1 TAB PO DAILY for . for 30 Days, #30 Ref 0 (Reported) Entered as Reported by: PIERRE ALEJANDRO on 05/07/21534 Last Action: Converted on 05/07/21854 by STEF VILLEGAS Scheduled PRN Polyethylene Glycol 400 (Blink Tears) 15 Ml Drops, 15 ML OP PRN PRN for ., (Reported) Entered as Reported by: PIERRE ALEJANDRO on 05/07/21534 Last Action: New Order on 05/07/21534 by PIERRE ALEJANDRO Tramadol Hcl (Tramadol Hcl) 50 Mg Tablet, 50 MG PO Q6HRS PRN for PAIN, Ref 0 (Reported) Entered as Reported by: DENILSON CARRINGTON on 12/07/20 1148 Last Action: Continued on 05/07/21854 by STEF VILLEGAS Discontinued Medications Magnesium Oxide (Magnesium) 400 Mg Capsule, 1 CAP PO DAILY, (Reported) Entered as Reported by: YONY PIPER on 07/06/1405 Last Action: Discontinued on 05/07/21536 by PIERRE ALEJANDRO Justicifation of Admission Dx: Justifications for Admission: Justification of Admission Dx: Yes BROOKLYNN NAM MD May 10, 2021 12:46
--- NOTE | 2021-05-10 13:52 | NUR ---
SW following. Discussed with RN, discharge order for home with home health. Ana Mcdowell RN meeting with pt prior to discharge. RN advised no further SW needs.
[2021-05-10 15:00] VITALS: BP 117/66
--- NOTE | 2021-05-10 18:36 | NUR ---
pt was discharged home with home health, she was picked up at main entrance by her son at 1835. no scripts for this pt, told her that home health will call her and get that set up with her tomorrow. Fransico Acosta RN
== END 2021-05-10 19:00 | disposition home health service (06) | DRG 872 ==
LOC: ER 19:47 → 5 NORTH 23:04 → OBSVTOIN 05-08 22:17
PROVIDERS: ADMIT Internal Medicine; ATTEND Internal Medicine
DX: A41.9 Sepsis, unspecified organism (principal); K57.92 Diverticulitis of intestine, part unspecified, without perforation or abscess without bleeding; Z20.822 Contact with and (suspected) exposure to COVID-19; D63.8 Anemia in other chronic diseases classified elsewhere; K21.9 Gastro-esophageal reflux disease without esophagitis; Z85.3 Personal history of malignant neoplasm of breast
CPT/HCPCS: 36415; 74174; 80048; 80053; 81001; 83690; 85007; 85025; 87086; 93005; 96361; 96374; 96375; G0378; G0379; J2270; J2405; J2543; J3010; J7030; Q9967; U0003; U0005; 97116-GP; 97530-GO; 99285-25

== ENCOUNTER 2021-12-21 08:34 | Outpatient (CLI) | payer MEDICARE ==
[2021-12-21] VITALS (8 sets, daily range): BP systolic 92–145; BP diastolic 52–61
[~2021-12-21] VITALS: Ht 172.7 cm; Wt 67.7 kg
[~2021-12-21 08:34] MED LIST changes: +ANAGRELIDE HCL PO; +CYAN100072 PO; +FOLI0.8T5 PO; +GLUC-142 PO; +MAGN500C PO; +POLY15DR38 OP; +POTA10TA12 PO; +ZINC50TA39 PO
[2021-12-21] MEDS ORDERED: LIDOCAINE WITH 8.4% SOD BICARB 3 ML DISP.SYRIN. ONE (09:34)
[2021-12-21] MEDS ORDERED: MIDAZOLAM HCL/PF 2 MG/2 ML VIAL. ONE (09:42)
[2021-12-21] MEDS ORDERED: fentaNYL PF VIAL 100 MCG/2 ML VIAL ONE (09:42)
[2021-12-21 09:49] LABS: BASO # 0.3 x10^3/uL (0.0-0.2); BASO % 2 % (0-3); EOS # 0.1 x10^3/uL (0.0-0.7); EOS % 0 % (0-3); HEMATOCRIT 28.6 % (36.0-47.0); HEMOGLOBIN 9.4 g/dL (12.0-15.5); LYMPH # 1.2 x10^3/uL (1.0-4.8); LYMPH % 7 % (24-48); MEAN CORPUSCULAR HEMOGLOBIN 25 pg (25-35); MEAN CORPUSCULAR HGB CONC 33 g/dL (31-37); MEAN CORPUSCULAR VOLUME 77 fL (79-100); MONO # 0.2 x10^3/uL (0.0-1.1); MONO % 1 % (0-9); NEUT # 15.4 x10^3/uL (1.8-7.7); NEUT % 90 % (31-73); PLATELET COUNT 357 x10^3/uL (140-400); RED BLOOD COUNT 3.69 x10^6/uL (3.50-5.40); RED CELL DISTRIBUTION WIDTH 22.1 % (11.5-14.5); WHITE BLOOD COUNT 17.2 x10^3/uL (4.0-11.0)
[2021-12-21 09:54] LABS: PROTHROMBIN TIME PATIENT 14.2 SEC (11.7-14.0)
[2021-12-21 10:09] LABS: CALCIUM 8.8 mg/dL (8.5-10.1); CREATININE 0.9 mg/dL (0.6-1.0); GFR 72.9
[2021-12-21] MEDS ORDERED: fentaNYL PF VIAL 100 MCG/2 ML VIAL IV ONE (10:45)
[2021-12-21] MEDS ORDERED: MIDAZOLAM HCL/PF 2 MG/2 ML VIAL. IV ONE (10:45)
[2021-12-21] MEDS ORDERED: LIDOCAINE WITH 8.4% SOD BICARB 3 ML DISP.SYRIN. IJ ONE (10:45)
[2021-12-21 11:29] LABS: % BANDS 9 % (0-9); % LYMPHS 7 % (24-48); % MONOS 3 % (0-10); PLT ESTIMATE ADEQUATE (ADEQUATE)
[2021-12-21 11:40] LABS: % BLASTS 4 % (0-0); % SEGS 77 % (35-66)
[2021-12-21 11:41] LABS: ANISOCYTOSIS PRESENT; POIKILOCYTOSIS PRESENT; POLYCHROMASIA PRESENT
--- NOTE | 2021-12-21 12:01 | NUR ---
Discharge Note: FERCHO JONES Discharge instructions and discharge home medications reviewed with Patient and a copy given. All questions have been answered and understanding verbalized. The following instructions and handouts were given: adult moderate sedation and incision site care Discontinued lines and drains: Peripheral IV intact. Patient discharged to Home or Self Care withFamily Membervia Wheelchair
--- NOTE | 2021-12-21 14:18 | RAD ---
Procedure: CT guided iliac crest bone marrow aspirate and biopsy with conscious sedation . Clinical Indication: Thrombocytopenia Discussion: The risks and benefits of the procedure including but not limited to infection, bleeding, and pain, were discussed the patient. Informed consent was obtained. Patient was brought to the CT s canner and placed in the prone position. A time out procedure was performed. The left gluteal region was prepped and draped using maximum sterile barrier technique. CT imaging of the pelvis was perform ed demonstrating a left ilium amenable to bone marrow biopsy. Once an appropriate site for skin entry was selected 1% lidocaine without epinephrine was administered for local anesthesia Following this an [employer] Diabetologist an 11 gauge biopsy needle was set into the superficial cortex of the iliac crest. Aspirates and cores were obtained. Pressure was held to achieve hemostasis. Sterile dressing was applied. The patient tolerated the procedure well without immediate complication. Sedation: Conscious sedation was performed for 15 minutes. Sedation was carried while the patient wa s continually monitored by a member of the Radiology nursing staff. Continual cardiopulmonary monito ring was carried out during the procedure. Conclusion: Successful CT guided bone marrow biopsy and aspirate of left iliac crest CT DOSING PQRS STATEMENT: One or more of the following individualized dose reduction techniques were utilized for this examinat ion: 1. Automated exposure control 2. Adjustment of the mA and/or kV according to patient size 3. Use of iterative reconstruction technique Electronically signed by: Bruno Gonzales MD (12/21/2021 2:15 PM) [id number]
== END 2021-12-21 12:10 | disposition home or self-care (01) ==
LOC: INTRAD 08:34
PROVIDERS: ATTEND Internal Medicine Hematology & Oncology
DX: D69.3 Immune thrombocytopenic purpura (principal); E78.00 Pure hypercholesterolemia, unspecified; J45.909 Unspecified asthma, uncomplicated; E66.9 Obesity, unspecified; K21.9 Gastro-esophageal reflux disease without esophagitis; M19.90 Unspecified osteoarthritis, unspecified site; Z85.3 Personal history of malignant neoplasm of breast; Z79.899 Other long term (current) drug therapy; Z98.890 Other specified postprocedural states; Z88.5 Allergy status to narcotic agent; Z90.710 Acquired absence of both cervix and uterus; Z98.51 Tubal ligation status
CPT/HCPCS: 36415; 38222; 77012; 80048; 85007; 85025; 85610; 99152; J2250; J3010; J3490; 88184; 88185; 88237